=== PATIENT | female | born 1940 | race Caucasian/White ===

== ENCOUNTER 2020-04-09 12:38 | Observation (INO) | payer OTHER ==
--- OUTSIDE RECORDS SUMMARY | 2020-04-09 12:41 | XMS REPORT | Clinical Summary ---
:1940 Author Organization [facility] Address [address] [place] [address] Care Team Providers Name Role Phone Asked, Pcp Primary Care Provider Unavailable Allergies Not on File Medications Medication Sig Dispensed Refills Start Date End Date Status celecoxib (CeleBREX) 200 TAKE ONE CAPSULE 3 08/11/19 19 Active MG capsule BY MOUTH TWICE A DAY WITH MEALS triamterene-hydrochlorot Take 1 tablet by 3 06/05/19 19 Active hiazid (MAXZIDE-25) mouth 2 (two) 37.5-25 mg per tablet times a day. SYNTHROID 100 mcg tablet Take 100 mcg by 3 9 Active mouth daily. pramipexole (MIRAPEX) Take 0.25 mg by 3 07/28/2018 Active 0.25 MG tablet mouth 4 (four) times a day. mirtazapine (REMERON) 30 Take 30 mg by 3 07/31/2018 Active MG tablet mouth nightly. busPIRone (BUSPAR) 15 MG Take 15 mg by 2 08/01/2018 Active tablet mouth 2 (two) times a day. cyclobenzaprine Take 10 mg by 0 Active (FLEXERIL) 10 mg tablet mouth 3 (three) times a day as needed for muscle spasms. Active Problems Problem Noted Date Localized osteoarthritis of right knee 08/27/2018 Medical History Medical History Date Comments Arthritis Social History Tobacco Use Types Packs/Day Years Used Date Never Assessed Sex Assigned at Date Recorded Not on file Last Filed Vital Signs Not on file Plan of Treatment Health Maintenance Due Date Last Done Comments SHINGLES VACCINES (#1) 11/21/1989 65+ PNEUMOCOCCAL VACCINE (1 of 1 - PPSV23) 11/21/2004 INFLUENZA VACCINE 11/28/2019 Results Not on fileafter 04/09/2019 Insurance Payer Benefit Plan / Subscriber ID Effective Dates Phone Addre ss Type Group MEDICARE MEDICARE PART A [id number] 2004-Present [place], [place] Medicare AND B AETNA AETNA PPO OPEN [id number] 2000-Present PPO CHOICE Advance Directives For more information, please contact: [phone] Type Date Recorded 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
--- OUTSIDE RECORDS SUMMARY | 2020-04-09 12:41 | XMS REPORT | Clinical Summary ---
:1940 Author Organization [facility] Address [address] [place] [address] Care Team Providers Name Role Phone Ronal Fraire Primary Care Provider Unavailable Allergies Active Allergy Reactions Severity Noted Date Comments Adhesive Bandage 01/19/2019 Sulfa (Sulfonamide Antibiotics) 9 Medications Medication Sig Dispensed Refills Start Date End Date Status olmesartan TAKE 1 TABLET 0 06/27/2012 Acti ve (BENICAR) 20 MG BY MOUTH EVERY tablet DAY omeprazole 1 po qd 0 08/12/2006 Active (PRILOSEC OTC) 20 MG tablet mirtazapine Take 30 mg by 3 10/28/2018 Act brittani (REMERON) 30 MG mouth nightly tablet . pramipexole Take 0.25 mg 3 10/30/2018 Acti ve (MIRAPEX) 0.25 MG by mouth 4 tablet (four) times daily. triamterene-hydroC Take 1 tablet 3 12/04/2018 Active HLOROthiazide by mouth 2 (MAXZIDE-25) (two) times 37.5-25 mg per daily. tablet venlafaxine Take 75 mg by 3 11/09/2018 Act brittani (EFFEXOR-XR) 75 MG mouth daily. 24 hr capsule zolpidem (AMBIEN) TAKE 1 TABLET 0 02/04/2018 Active 10 mg tablet BY MOUTH AT BEDTIME WHEN NECESSARY INSOMNIA busPIRone (BUSPAR) Take 15 mg by 2 10/28/2018 Active 15 MG tablet mouth 2 (two) times daily. carisoprodol TK 1 T PO QID 1 10/17/2018 Ac tive (SOMA) 350 MG PRF SEVERE tablet MUSCLE SPASMS celecoxib Take 200 mg by 3 11/09/2018 Acti ve (CELEBREX) 200 MG mouth 2 (two) capsule times daily with breakfast and dinner. biotin 5 mg Cap Take 5 mg by 0 A ctive mouth daily . acetaminophen-code 1 tab q 4-6 0 11/05/2017 Active ine (TYLENOL #4) hrs prn pain. 300-60 mg per tablet levothyroxine TAKE 1 TABLET 0 06/27/2012 A ctive (SYNTHROID) 100 BY MOUTH EVERY MCG tablet DAY cetirizine Take 10 mg by 0 Activ e (ZYRTEC) 10 MG mouth daily. tablet ibuprofen/diphenhy Take by mouth 0 Active dramine cit (ADVIL as needed. PM ORAL) triamterene-hydroC TAKE 1 TABLET 0 06/05/2018 Discontinued HLOROthiazide BY MOUTH TWICE 0 ( Duplicate (MAXZIDE-25) A DAY Therapy ) 37.5-25 mg per tablet olmesartan Take 20 mg by 3 10/28/2018 Disc ontinued (BENICAR) 20 MG mouth daily. 0 tablet Active Problems Problem Noted Date SOB (shortness of breath) 10/26/2019 Encounters Date Type Specialty Care Team Description 10/26/2019 Surgery Roger Cade L CATH & CO COOPER Dugan MD ANGIOS 10/26/2019 Anesthesia Event Shalonda Bronson MD 10/26/2019 Hospital Encounter Roger Cade SOB ( shortness of MD Kailee breath) 10/26/2019 Travel 10/26/2019 Orders Only General Internal Medicine 10/22/2019 Clinical Support Cardiology Roger Cade Pre-op testing (Primary Dx); MD Kailee Preoperative testing Handy Sung RN 10/22/2019 Orders Only General Internal Medicine 10/07/2019 Orders Only Cardiology Trever Sifuentes NP Preoperativ e testing (Primary Dx) 10/07/2019 Orders Only Cardiology Roger Cade MD 09/15/2019 Hospital Encounter Cardiology Roger Cade Hyper tension, unspecified type; MD Kailee Systolic conges tive heart failure, unspecified HF chronicity (HCC) 09/07/2019 Orders Only Lab Jackson, Systolic conges tive NIKITA De Souza heart failure, unspecified HF chronicity (HCC ) (Primary Dx) 09/07/2019 Orders Only Oncology Ap Paz RN 07/08/2019 Orders Only Oncology Paz, Ap Liao RN unspecified typ e (Primary Dx) 07/08/2019 Documentation Oncology Ap Paz RN 06/22/2019 Hospital Encounter Radiology Jeremy Moore, Pulmon ahmet HTN (HCC); MD WATKINS (shortness of breath); Heart failure w ith preserved ejection fraction, unspecified HF chronicity (HCC) 06/11/2019 Outside Orders Central Scheduling Jeremy oMore, Pulm onary HTN (HCC) (Primary Dx); MD WATKINS (shortness of breath); Heart failure w ith preserved ejection fraction, unspecified HF chronicity (HCC) after 04/09/2019 Family History Medical History Relation Name Comments Stroke Father Heart disease Mother Cancer Sister breast, uterine, salivary gland Relation Name Status Comments Father Mother Sister Alive Sister Alive Social History Tobacco Use Types Packs/Day Years Used Date Never Smoker Smokeless Tobacco: Never Used Alcohol Use Drinks/Week oz/Week Comments Yes monthly twice - Rum Sex Assigned at Date Recorded Not on file Last Filed Vital Signs Vital Sign Reading Time Taken Comments Blood Pressure 148/72 10/26/2019 3:45 PM CDT Pulse 99 10/26/2019 3:45 PM CDT Temperature 36.8 C (98.3 F) 10/26/2019 5:43 AM CDT Respiratory Rate 16 10/26/2019 3:45 PM CDT Oxygen Saturation 97% 10/26/2019 9:00 AM CDT Inhaled Oxygen Concentration - - Weight 83 kg (183 lb) 10/26/2019 5:43 AM CDT Height 162.6 cm (5' 4") 10/26/2019 5:43 AM CDT Body Mass Index 31.41 10/26/2019 5:43 AM CDT Plan of Treatment Health Maintenance Due Date Last Done Comments PNEUMOCOCCAL 65+ YRS (1 of 1 - [id number]) 11/21/2004 MEDICARE ANNUAL WELLNESS (YEAR 2 or FIRST YEAR if no 10/28/2005 IPPE) INFLUENZA VACCINE (#1) 2019 Procedures Procedure Name Priority Date/Time Associated Diagnosis Comme nts CARDIAC CATH REPORT - 01/27/2020 10:20 AM SCAN CDT VASCULAR DIAGRAM -SCAN 01/27/2020 10:20 AM CDT TRANSFUSION SERVICE 10/27/2019 6:13 PM REPORT - SCAN CDT VASCULAR DIAGRAM -SCAN 10/27/2019 9:20 AM CDT CARDIAC CATH REPORT - 10/27/2019 9:20 AM SCAN CDT CARDIAC CATH REPORT - 10/27/2019 9:20 AM SCAN CDT PCI 10/26/2019 7:10 AM Abnormal findings on CDT imaging test PHT (pulmonary hypertension) (H CC) Shortness of breath Case Notes (1)CASE 6TOP L CATH & CORONARY ANGIOS 10/26/2019 7:10 AM CDT Abnor mal findings on imaging test PHT (pulmonary hypertension) (HCC) Shortness of breath Case Notes (1)CASE 6TOP ECG 12-LEAD Routine 10/26/2019 6:26 AM CDT Procedure Note - Interface, External Ris In - 10/26/2019 6:30 AM CDT Ventricular Rate 79 BPM Atrial Rate 79 BPM P-R Interval 162 ms QRS Duration 74 ms Q-T Interval 374 ms QTC Calculation(Bazett) 428 ms P Maxwell 59 degrees R Maxwell -7 degrees T Maxwell 35 degrees Normal sinus rhythm Low voltage QRS Borderline ECG When compared with ECG of 09:43, No significant change was fo und ECG 12-LEAD STAT 10/26/2019 6:26 AM Results for this CDT procedure are i n the results section. ABORH, MANUAL STAT 10/26/2019 6:19 AM Results for this CDT procedure are i n the results section. CBC W/PLT COUNT & STAT 10/26/2019 6:07 AM Res ults for this AUTO DIFFERENTIAL CDT procedure are in the results section. TYPE AND SCREEN, STAT 10/26/2019 6:07 AM Resu lts for this AUTOMATED CDT procedure are i n the results section. PROTHROMBIN TIME/INR STAT 10/26/2019 6:07 AM Results for this CDT procedure are i n the results section. CBC W/PLT COUNT & STAT 10/26/2019 6:07 AM Res ults for this AUTO DIFFERENTIAL CDT procedure are in the results section. BASIC METABOLIC PANEL STAT 10/26/2019 6:07 AM Results for this (7) CDT procedure are i n the results section. CBC W/PLT COUNT & Routine 10/22/2019 10:10 AM Pre-op testing R esults for this AUTO DIFFERENTIAL CDT procedure are in the results section. CBC W/PLT COUNT & Routine 10/22/2019 10:10 AM Pre-op testing R esults for this AUTO DIFFERENTIAL CDT procedure are in the results section. BASIC METABOLIC PANEL Routine 10/22/2019 10:10 AM Pre-op testi ng Results for this (7) CDT procedure are i n the results section. SARS-COV2/RT-PCR Routine 10/22/2019 9:58 AM Preoperative test ing Results for this ([facility] & REF LABS) CDT procedure are in the results section. ECG 12-LEAD Routine 10/22/2019 9:43 AM CDT Procedure Note - Interface, External Ris In - 10/22/2019 9:52 AM CDT Ventricular Rate 81 BPM Atrial Rate 81 BPM P-R Interval 156 ms QRS Duration 72 ms Q-T Interval 368 ms QTC Calculation(Bazett) 427 ms P Maxwell 59 degrees R Maxwell -26 degrees T Maxwell 53 degrees Normal sinus rhythm Low voltage QRS Cannot rule out Anterior inf arct , age undetermined Abnormal ECG When compared with ECG of 11:28, Minimal criteria for Anterio r infarct are now Present ECG 12-LEAD Routine 10/22/2019 9:43 AM Pre-op testing Result s for this CDT procedure are i n the results section. CBC W/PLT COUNT & AUTO Routine 09/15/2019 10:55 AM Systolic co ngestive Results for this DIFFERENTIAL CDT heart failure, procedure are in unspecified HF the results chronicity (HCC) section. B-TYPE NATRIURETIC Routine 09/15/2019 10:55 AM Systolic conges tive Results for this FACTOR (BNP) CDT heart failure, procedure are in unspecified HF the results chronicity (HCC) section. CBC W/PLT COUNT & AUTO Routine 09/15/2019 10:55 AM Systolic co ngestive Results for this DIFFERENTIAL CDT heart failure, procedure are in unspecified HF the results chronicity (HCC) section. COMPREHENSIVE Routine 09/15/2019 10:55 AM Systolic congestive Results for this METABOLIC PANEL CDT heart failure, procedure are in unspecified HF the results chronicity (HCC) section. 2D ECHO W/ DOPPLER Routine 09/15/2019 10:02 AM Hypertension, R esults for this (CW/PW/COLOR) CDT unspecified type procedure are in the results section. CTA HEART CORONARY Routine 06/22/2019 11:30 AM Pulmonary HTN (HCC) Results for this WITH CALCIUM SURFACE GRINDER SOB (shortness of procedure are in EVALUATION WITH FFR breath) the results Heart failure with section. preserved ejection fraction, unspecified HF chronicity (HCC) POCT-CREATININE Routine 06/22/2019 8:39 AM Resul ts for this SURFACE GRINDER procedure are i n the results section. after 04/09/2019 Results CARDIAC CATH REPORT - SCAN (01/27/2020 10:20 AM CDT) Narrative Performed At This result has an attachment that is no t available. VASCULAR DIAGRAM -SCAN (01/27/2020 10:20 AM CDT)Only the most recent of2 results within the time period is included. Narrative Performed At This result has an attachment that is no t available. TRANSFUSION SERVICE REPORT - SCAN (10/27/2019 6:13 PM CDT) Narrative Performed At This result has an attachment that is no t available. CARDIAC CATH REPORT - SCAN (10/27/2019 9:20 AM CDT) Narrative Performed At This result has an attachment that is no t available. CARDIAC CATH REPORT - SCAN (10/27/2019 9:20 AM CDT) Narrative Performed At This result has an attachment that is no t available. ECG 12 lead (10/26/2019 6:26 AM CDT)Only the most recent of2 resultswithin the time period is included. Specimen Narrative Performed At Ventricular Rate 79 BPM GE MUSE Atrial Rate 79 BPM P-R Interval 162 ms QRS Duration 74 ms Q-T Interval 374 ms QTC Calculation(Bazett) 428 ms P Maxwell 59 degrees R Maxwell -7 degrees T Maxwell 35 degrees Normal sinus rhythm Low voltage QRS Normal ECG When compared with ECG of 22-OCT-2019 09 :43, No significant change was found Confirmed by Heather DOMINGUEZ MICHAEL ([id number]) on 0 7:46:09 AM Procedure Note Interface, External Ris In - 10/26/2019 7:46 AM CDT Ventricular Rate 79 BPM Atrial Rate 79 BPM P-R Interval 162 ms QRS Duration 74 ms Q-T Interval 374 ms QTC Calculation(Bazett) 428 ms P Maxwell 59 degrees R Maxwell -7 degrees T Maxwell 35 degrees Normal sinus rhythm Low voltage QRS Normal ECG When compared with ECG of 22-OCT-2019 09 :43, No significant change was found Confirmed by Heather DOMINGUEZ MICHAEL ([id number]) on 10/26/2019 7:46:09 AM Performing Organization Address City/[facility]/Zipcode Phone Number ZOIE TERRY tari PERES (10/26/2019 6:19 AM CDT) Pathologist Sig nature ABO Grouping O [facility] DICAL [place] Rh Factor POS [facility] Specimen Blood Performing Organization Address City/[facility]/Zipcode Phone Number [facility] [address] [place] [phone] Type and screen, automated (10/26/2019 6:07 AM CDT) Pathologist Sig nature ABO/RH AUTOMATED O POSITIVE [facility] Ab Scrn NEGATIVE [facility] Specimen Blood Performing Organization Address [facility] Phone Number [address] [address] CBC with platelet count + automated diff (10/26/2019 6:07 AM CDT)Only the most recent of3 resultswithin the time period is included. Pathologist Sig nature WBC 4.7 3.5 - 10.5 [facility] K/L [facility] RBC 3.93 3.93 - 5.22 [facility] M/L [facility] Hemoglobin 11.9 11.2 - 15.7 [facility] GM/DL [facility] Hematocrit 37.1 34.1 - 44.9 % [facility] MCV 94.4 79.4 - 94.8 fL [facility] MCH 30.3 25.6 - 32.2 pg [facility] MCHC 32.1 (L) 32.2 - 35.5 [facility] GM/DL [facility] RDW 12.4 11.7 - 14.4 % [facility] Platelets 124 (L) 150 - 450 K/CU [facility] MPV 10.5 9.4 - 12.3 fL [facility] nRBC 0 0 - 0 /100 WBC [facility] % Neutros 34 % [facility] % Lymphs 52 % [facility] % Monos 10 % [facility] % Eos 4 % [facility] % Baso 1 % [facility] # Neutros 1.59 1.56 - 6.13 [facility] # Lymphs 2.44 1.18 - 3.74 [facility] # Monos 0.46 (H) 0.24 - 0.36 [facility] # Eos 0.18 0.04 - 0.36 [facility] # Baso 0.04 0.01 - 0.08 [facility] Immature 0 0 - 1 % [facility] Specimen Blood Performing Organization Address City/State/Zipcode Phone Number [facility] [address] [place] [address] CENTER Prothrombin time/INR (10/26/2019 6:07 AM CDT) Pathologist Sig nature Protime 12.9 11.9 - 14.2 seconds [facility] INR 1.0 <=5.9 [facility] Specimen Blood Narrative Performed At Effective 09/24/2018: PT Reference Range [facility] Change New: 11.9-14.2 Previous: 11.7-14.7 RECOMMENDED COUMADIN/WARFARIN INR THERAPY RANGES STANDARD DOSE: 2.0-3.0 Includes: PROPHYLAXIS for venous thrombosis, systemic embolization; TREATMENT for venous thrombosis and/or pulmonary embolus. HIGH RISK: Target INR is 2.5-3.5 for patients wiht mechanical heart valves. Within 24 hours, if on Coumadin Performing Organization Address [facility]/Zipcode Phone Number [facility] [address] [place] [address] [place] Basic metabolic panel (10/26/2019 6:07 AM CDT)Only the most recent of2 results within the time period is included. Sodium 142 136 - 145 meq/L [facility] Potassium 4.1 3.5 - 5.1 meq/L [facility] Chloride 107 98 - 107 meq/L [facility] CO2 26 22 - 29 meq/L [facility] BUN 33 (H) 7 - 21 mg/dL [facility] Creatinine 1.06 0.57 - 1.25 [facility] mg/dL [facility] Glucose 91 70 - 105 mg/dL [facility] Calcium 9.4 8.4 - 10.2 [facility] mg/dL [facility] EGFR 50Comment: ESTIMATED mL/min/1.73 sq [facility] GFR IS NOT m [facility] ACCURATE [place] CREATININE CLEARANCE IN PREDICTING GLOMERULAR FILTRATION RATE. ESTIMATED GFR IS NOT APPLICABLE FOR DIALYSIS PATIENTS. Specimen Blood Narrative Performed At Aircraft Hydraulic Equipment Mechanic ID - PIAYA L [facility] Performing Organization Address [facility] Phone Number [facility] [address] [place] [address] [place] SARS-CoV2/RT-PCR ([facility] & Ref Labs) (10/22/2019 9:58 AM CDT) SARS-COV2/RT-PCR Negative Not Detected, [facility] Negative NON-INTERFACED REFERENCE LABS SARS-COV-2 CPL [facility] PERFORMING LAB NON-INTERFACED REFERENCE LABS Specimen Other - Nasopharyngeal wall structure (b richard structure) Performing Organization Address [facility]/Zipcode Phone Number [facility] NON-INTERFACED REFERENCE LABS B-type Natriuretic Factor (BNP) (09/15/2019 10:55 AM CDT) Pathologist Sig nature BNP <10 0 - 100 pg/mL [facility] DICAL CENTER Specimen Blood Narrative Performed At Aircraft Hydraulic Equipment Mechanic ID - LONNIE Lobo [facility] Performing Organization Address City/State/Zipcode Phone Number [facility] [address] [place] [address] CENTER Comprehensive metabolic panel (09/15/2019 10:55 AM CDT) Protein, Total 7.6 6.0 - 8.3 [facility] gm/dL [facility] Albumin 4.4 3.5 - 5.0 [facility] g/dL [facility] Alkaline 72 40 - 150 U/L [facility] Phosphatase [facility] Total Bilirubin 0.5 0.2 - 1.2 [facility] mg/dL [facility] Sodium 136 136 - 145 [facility] meq/L [facility] Potassium 4.4 3.5 - 5.1 [facility] meq/L [facility] Chloride 99 98 - 107 [facility] meq/L [facility] CO2 31 (H) 22 - 29 meq/L [facility] BUN 32 (H) 7 - 21 mg/dL [facility] Creatinine 1.29 (H) 0.57 - 1.25 [facility] mg/dL [facility] Glucose 97 70 - 105 [facility] mg[facility]dL [facility] Calcium 9.8 8.4 - 10.2 [facility] mg/dL [facility] AST 29 5 - 34 U/L [facility] ALT 19 6 - 55 U/L [facility] EGFR 40Comment: mL/min/1.73 [facility] ESTIMATED GFR IS sq [facility] NOT [facility] CREATININE CLEARANCE IN PREDICTING GLOMERULAR FILTRATION RATE. ESTIMATED GFR IS NOT APPLICABLE FOR DIALYSIS PATIENTS. Specimen Blood Narrative Performed At Aircraft Hydraulic Equipment Mechanic ID - LONNIE Lobo [facility] Performing Organization Address City/State/Zipcode Phone Number [facility] [address] [place] [address] CENTER 2D Echo W/Doppler(CW/PW/Color) (09/15/2019 10:02 AM CDT) Pathologist Sig nature Ejection Fraction [facility] ECHO [facility] Specimen Narrative Performed At Transthoracic Echocardiography Report (T TE) [facility] ECHO [facility]ARTLAB [facility] Demographics Patient Name ASHA CASTILLO Date of Study 09/15/2019 ROMAN Gender Female Visit Number [id number] Race Room Number OP Number Date of 1940 Referring Alyssia Dugan Physician Age 78 year(s) It Quality Analyst Yenni rascon [facility] Interpreting Morro Manley MD Physician Fellow Phoenix Paez MD Procedure Type of Study TTE procedure:2DECHO W DOPPLER(CW/PW/COLOR) (Routine) Indications:Research. Clinical History HGB 11.9 HCT 35.0 % CHF, HTN, Scoliosis Height: 64 inches Weight: 78.02 kg (172 lbs) BSA: 1.83 m^2 BMI: 29.52 kg/m^2 HR: 89 bpm BP: 152/72 mmHg Summary 1. Normal left ventricular chamber size. Normal wall thickness. Normal overall left ventricular systolic function (55-60%). No apparent segmental wall motion abnormalities. Grade 1 diastolic dysfunction (impaired relaxation and low-normal LA pressure). LA size is normal (16-34 ml/m2) . 2. The right ventricular chamber size and systolic function are within normal limits. RA size is normal. Estimated peak systolic PA pressure is 25-30 mmHg. 3. No significant valvular abnormalitie s. Previous Study No prior exam available for comparison. Signature Findings Technical Quality: Technically adequate exam. Left Ventricle Normal left ventricular chamber size. Normal wall thickness. Normal overall left ventricular systolic function (55-60%). No apparent segmental wall motion abnormalities. Grade 1 diastolic dysfunc tion (impaired relaxation and low-normal LA pressure). Left Atrium LA size is normal (16-34 ml/m2) . Right Ventricle The right ventricular chamber size and systolic function are within normal limits. Right Atrium RA size is normal. Aortic Valve Normal AoV structure and function. Mitral Valve Normal MV structure and function. Tricuspid Valve A trace of tricuspid regurgitation. Estimated peak systolic PA pressure is 25-30 mmHg . Pulmonic Valve Normal PV structure appears normal by available view s. Aorta Aortic root size (SInus of Valsalva diameter) is norm al . Pericardium No significant pericardial effusion is visualized. IVC/SVC/PA/PV/Pleural The estimated RA pressure by IVC dynamics 5-10mmHg . Chambers/Structures Left Atrium LA Volume: 33.51 ml LA Area: 13.75 cm^2 LA Vol. Index: 18 ml/m^2 Left Ventricle LVIDd: 4.22 cm LV Septum Diastolic: 0.76 cm LV PW Diastolic: 0.77 cm LVOT Diameter: 1.9 cm Doppler/Quantitative Measurements Mitral Valve MV Peak E-Wave: 0.52 m/s MV Peak A-Wave: 0.87 m/s E/A Ratio: 0.6 Peak Gradient: 1.08 mmHg MV Fredy. Peak: Tissue Doppler E' Septal Velocity: 0.09 m/s E/E': 5.91 E' Lateral Velocity: 0.09 m/s Aortic Valve Peak Velocity: 1.06 m/s Mean Velocity: 0.64 m/s Peak Gradient: 4.53 mmHg Mean Gradient: 1.89 mmHg AV Area (continuity): 3.02 cm^2 AV VTI: 19.03 cm AV DVI: 1.07 LVOT Peak Velocity: 0.94 m/s Peak Gradient: 3.55 mmHg Mean Velocity: 0.55 m/s Mean Gradient: 1.48 mmHg LVOT Diameter: 1.9 cm LVOT VTI: 20.28 cm LVOT Area: 2.84 cm^2 LVOT SV:57.47 ml LVOT CO: 5.11 l/min LVOT CI: 2.79 l/min/m^2 Tricuspid Valve TR Velocity: 2.21 m/s TR Gradient: 19.45 mmHg Procedure Note Interface, External Ris In - 09/17/2019 11:19 AM CDT Transthoracic Echocardiography Report (TTE) Demographics Patient Name ASHA CASTILLO Date o f Study 09/15/2019 ABEL Gender Female Visit Number [id number] Race Room N umber OP Number Date of 1940 Referr stewart Dugan Physic marlene Age 78 year(s) Sonogr simaer Yenni Gary, RDCS Interp reting Morro Manley MD Physic marlene Fellow Phoenix Paez MD Procedure Type of Study TTE procedure:2DECHO W DOPPLE R(CW/PW/COLOR) (Routine) Indications:Research. Clinical History HGB 11.9 HCT 35.0 % CHF, HTN, Scoliosis Height: 64 inches Weight: 78.02 kg (172 lbs) BSA: 1.83 m^2 BMI: 29.52 kg/m^2 HR: 89 bpm BP: 152/72 mmHg Summary 1. Normal left ventricular chamber size . Normal wall thickness. Normal overall left ventricular systolic funct ion (55-60%). No apparent segmental wall motion abnormalities. Grade 1 burdick tolic dysfunction (impaired relaxation and low-normal LA pressure). LA size is normal (16-34 ml/m2) . 2. The right ventricular chamber size a nd systolic function are within normal limits. RA size is normal. Estim ated peak systolic PA pressure is 25-30 mmHg. 3. No significant valvular abnormalitie s. Previous Study No prior exam available for comparison. Signature Findings Technical Quality: Technically adequate exam. Left Ventricle Normal left vent ricular chamber size. Normal wall thickness. Gillian l overall left ventricular systolic function (55-60% ). No apparent segmental wall motion abnormali ties. Grade 1 diastolic dysfunction (impaired relaxa tion and low-normal LA pressure). Left Atrium LA size is gillian l (16-34 ml/m2) . Right Ventricle The right ventri cular chamber size and systolic function are wit hin normal limits. Right Atrium RA size is gillian l. Aortic Valve Normal AoV struc ture and function. Mitral Valve Normal MV struct ure and function. Tricuspid Valve A trace of tricu spid regurgitation. Estimated peak s ystolic PA pressure is 25-30 mmHg . Pulmonic Valve Normal PV struct ure appears normal by available views. Aorta Aortic root size (SInus of Valsalva diameter) is normal . Pericardium No significant p ericardial effusion is visualized. IVC/SVC/PA/PV/Pleural The estimated RA pressure by IVC dynamics 5-10mmHg . Chambers/Structures Left Atrium LA Volume: 33.51 ml LA Area: 13.75 cm^2 LA Vol. Index: 18 ml/m^2 Left Ventricle LVIDd: 4.22 cm LV Septum Diastolic: 0.76 cm LV PW Diastolic: 0.77 cm LVOT Diameter: 1.9 cm Doppler/Quantitative Measurements Mitral Valve MV Peak E-Wave: 0.52 m/s MV Peak A-Wave: 0.87 m/s E/A Ratio: 0.6 Peak Gradient: 1.08 mmHg MV Fredy. Peak: Tissue Doppler E' Septal Velocity: 0.09 m/s E/E': 5.91 E' Lateral Velocity: 0.09 m/s Aortic Valve Peak Velocity: 1.06 m/s Mean Velocity: 0.64 m/s Peak Gradient: 4.53 mmHg Mean Gradient: 1.89 mmHg AV Area (continuity): 3.02 cm^2 AV VTI: 19.03 cm AV DVI: 1.07 LVOT Peak Velocity: 0.94 m/s Pea k Gradient: 3.55 mmHg Mean Velocity: 0.55 m/s Tammy n Gradient: 1.48 mmHg LVOT Diameter: 1.9 cm LVO T VTI: 20.28 cm LVOT Area: 2.84 cm^2 LVO T SV:57.47 ml LVOT CO: 5.11 l/min LVO T CI: 2.79 l/min/m^2 Tricuspid Valve TR Velocity: 2.21 m/s TR Gradient: 19.45 mmHg Performing Organization Address City/State/Zipcode Phone Number [facility] CTA heart coronary with calcium evaluation with FFR (Heartflow) (06/22/2019 11:30 AM SURFACE GRINDER) Specimen Narrative Performed At Addendum Begins [employer] [facility] REPORT STATUS:A Addendum: I agree with the previously described no n vascular findings. End of addendum. Signed: Kan Fontana MD Report Verified Date/Time: 06/23/2019 12:22:20 Reading Location: [address] Radiolog y Reading Room Addendum Ends Addendum Begins REPORT STATUS:A ADDENDUM: Data was sent for CT analysis, ct-ffr, t o be performed by an independent third constitution party vendor. According to computer analysis, no obstr uctive lesion is identified. Please refer to the original conclusion for details. Signed: Saúl Layne MD Report Verified Date/Time: 06/23/2019 07:11:17 Addendum Ends FINAL REPORT CT coronary angiography, May 31 INDICATION: This is a very pleasant 78 - year old lady with with diagnosis of I 50.30, I 27.20 presents f or assessment. According to daughter, patient has alexa rtness of breath on exertion. TECHNIQUE: Spiral acquisition before and during intravenous contrast administration using a Brigido multidete ctor CT scanner. Multi-planar 3-D volume-rendering reconstruction was performed using an independent workstation interactively by the interpreting physician as well as the 3-D specialist for optima l visualisation of the coronary anatomy. Consecutive thin sli gretchen (< 1mm) were obtained. Arrival heart rate was suboptimal, of ap proximately 75 bpm. Medication administration: Oral metoprolol 100 mg; IV metoprolol 0 mg; S/L nitroglyercin 0.4 mg. Please refer to the contrast sheet scann ed in the Virool system for the amount and route of contrast given. This exam was performed according to our departmental dose-optimisation programme, which inclu emily automated exposure control, adjustment of the mA and/or kV according to patient size and/or use of iterative reconstruction t echnique. Dose modulation, iterative reconstruction, and/or weight based adjustment of the mA/kV was utilized to reduce the radiation dos e to as low as reasonably achievable. FINDINGS: VASCULAR: The thoracic aorta is normal in course, calibre, contour. No ectasia or aneurysmal dilation is identified. Th ere is no acute aortic pathology, specifically, there is no dis section, contained rupture, and intramural hematoma. The arch vess el branching pattern is normal. The left vertebral artery arises directly from the transverse arch, anterior to the takeoff of the lef t subclavian artery, consider a normal variant. The central pulmonary artery is normal i n calibre. The left ventricle is normal in size. Mi ld left atrial enlargement is identified. There is normal atrio-ventri cular and ventriculo-arterial concordance, and systemic and pulmonary venous return. There is no pericardial effusion identified. Calcium score and high-resolution, ECG s ynchronized computed tomography of the heart with attention t o the coronary arteries was performed. Coronary calcification was an alyzed using the Exhibition A system software. These are the results o f the calcium score evaluation (threshold = 130 HU): LM: = 0 LAD: = 400 LCX: = 0 RCA: = 163 Agatston: = 563 Reference ranges for calcium scores are provided as follows ([place] Clin Proc 1999; 74: 243-252): 0-10: minimal calcium 11-100: mild calcium 101-400 moderate calcium > 400 significant calcium The calcium score places patient between 75th to 90th percentile for age group, using the FAITH database. The coronary arteries have normal origin s. The left main coronary artery arises from the left sinus of Tori ariel and give rise to the left anterior descending of the left cir cumflex arteries in the normal fashion. The right coronary ar emil arises from the right sinus of Valsalva. The left main coronary artery is widely patent. The proximal LAD has calcification ident ified, eccentrically located. There is still 50% of the cross-sectiona l area that is patent indicating nonobstructive disease presen t. Remainder of the the proximal LAD is unremarkable. In the mid LAD, similar Consultation is seen, with only nonobstructive disease i dentified. Remainder of the mid LAD is unremarkable. The distal LAD becomes a small calibre vessel. Nonobstructive indication is darrick ntified in the first diagonal artery. The left circumflex artery is a small ca mario vessel. The right coronary artery is the dominan t vessel. This widely patent. There is minimal calcific lesion seen in the mid RCA that is nonobstructive. The PDA supply much of t he inferior septum and a prominent PL branches identified with no nobstructive calcification seen proximally. NON-VASCULAR: The visualised thyroid gland is unremark able. The chest wall and mediastinum appears u nremarkable. No significant adenopathy is identified in the mediasti num. In the lung windows, no endobronchial le ryder is seen, and no pleural effusion is identified. Some dependent c hanges is seen in the lung bases. Calcified granuloma is identified in the right lung at image 25. Overall, no suspicious pulmonary nod ule is identified. Limited images of the upper abdomen reve als no gross abnormality. No acute bony pathology is seen. Some de generative changes is noted. CONCLUSIONS: 1. Quantitative coronary artery calciu m Agatston score of 563. The calcium score places patient between 75th to 90th percentile for age group, using the FAITH database. 2. Normal coronary artery origins. The major epicardial coronary arteries i ncluding the left main coronary artery, the left anterior desce nding artery, left circumflex artery, and the right coronary artery ar e widely patent with no focal stenosis. There is calcification identified in the proximal and mid LAD, and also in the RCA territory, as reflected by the calcium score, however, only nonobstructive disease is identified at these level, with less than 50% reduction in diameter . The above findings indicates the presence of coronary ather osclerosis The data will be sent for CT analysis, b y an independent third constitution party vendor. Should the data be accepted for postprocessing, the result would be sent to [employer]Virool when availabl e. 3. No acute pulmonary pathology. Evidence of prior granulomatous disease. 4. Normal thoracic aorta. No ectasia or aneurysmal dilation is darrick ntified. 5. Other findings as described above. 6. The non-vascular findings will be r eviewed by the Tray Room Worker Radiologist and addendum will be added a s needed. Signed: Saúl Layne MD Report Verified Date/Time: 06/22/2019 12:11:30 Procedure Note Interface, External Ris In - 06/23/2019 12:24 PM SURFACE GRINDER Addendum Begins REPORT STATUS:A Addendum: I agree with the previously described no n vascular findings. End of addendum. Signed: Kan Fontana MD Report Verified Date/Time: 06/23/2019 1 2:22:20 Reading Location: [address] Reading Room Addendum Ends Addendum Begins REPORT STATUS:A ADDENDUM: Data was sent for CT analysis, ct-ffr, t o be performed by an independent third constitution party vendor. According to computer analysis, no obstr uctive lesion is identified. Please refer to the original conclusion for details. Signed: Saúl Layne MD Report Verified Date/Time: 06/23/2019 0 7:11:17 Addendum Ends FINAL REPORT CT coronary angiography, May 31 020 INDICATION: This is a very pleasant 78 - year old lady with with diagnosis of I 50.30, I 27.20 presents f or assessment. According to daughter, patient has shor tness of breath on exertion. TECHNIQUE: Spiral acquisition before and during intravenous contrast administration using a Brigido multidete ctor CT scanner. Multi-planar 3-D volume-rendering reconstruction was performed using an independent workstation interactively by the interpreting physician as well as the 3-D specialist for optima l visualisation of the coronary anatomy. Consecutive thin slic es (< 1mm) were obtained. Arrival heart rate was suboptimal, of ap proximately 75 bpm. Medication administration: Oral metoprolol 100 mg; IV metoprolol 0 mg; S/L nitroglyercin 0.4 mg. Please refer to the contrast sheet scann ed in the EPIC system for the amount and route of contrast given. This exam was performed according to our departmental dose-optimisation programme, which inclu emily automated exposure control, adjustment of the mA and/or kV according to patient size and/or use of iterative reconstruction t echnique. Dose modulation, iterative reconstruction, and/or weight based adjustment of the mA/kV was utilized to reduce the radiation dos e to as low as reasonably achievable. FINDINGS: VASCULAR: The thoracic aorta is normal in course, calibre, contour. No ectasia or aneurysmal dilation is identified. Th ere is no acute aortic pathology, specifically, there is no dis section, contained rupture, and intramural hematoma. The arch vesse l branching pattern is normal. The left vertebral artery arises directly from the transverse arch, anterior to the takeoff of the lef t subclavian artery, consider a normal variant. The central pulmonary artery is normal i n calibre. The left ventricle is normal in size. Mi ld left atrial enlargement is identified. There is normal atrio-ventri cular and ventriculo-arterial concordance, and systemic and pulmonary venous return. There is no pericardial effusion identified. Calcium score and high-resolution, ECG s ynchronized computed tomography of the heart with attention t o the coronary arteries was performed. Coronary calcification was an alyzed using the Exhibition A system software. These are the results o f the calcium score evaluation (threshold = 130 HU): LM: = 0 LAD: = 400 LCX: = 0 RCA: = 163 Agatston: = 563 Reference ranges for calcium scores are provided as follows ([place] Clin Proc 1999; 74: 243-252): 0-10: minimal calcium 11-100: mild calcium 101-400 moderate calcium > 400 significant calcium The calcium score places patient between 75th to 90th percentile for age group, using the FAITH database. The coronary arteries have normal origin s. The left main coronary artery arises from the left sinus of Tori ariel and give rise to the left anterior descending of the left cir cumflex arteries in the normal fashion. The right coronary art olman arises from the right sinus of Valsalva. The left main coronary artery is widely patent. The proximal LAD has calcification ident ified, eccentrically located. There is still 50% of the cross-sectiona l area that is patent indicating nonobstructive disease presen t. Remainder of the the proximal LAD is unremarkable. In the mid LAD, similar Consultation is seen, with only nonobstructive disease i dentified. Remainder of the mid LAD is unremarkable. The distal LAD becomes a small calibre vessel. Nonobstructive indication is darrick ntified in the first diagonal artery. The left circumflex artery is a small ca mario vessel. The right coronary artery is the dominan t vessel. This widely patent. There is minimal calcific lesion seen in the mid RCA that is nonobstructive. The PDA supply much of t he inferior septum and a prominent PL branches identified with no nobstructive calcification seen proximally. NON-VASCULAR: The visualised thyroid gland is unremark able. The chest wall and mediastinum appears u nremarkable. No significant adenopathy is identified in the mediasti num. In the lung windows, no endobronchial le ryder is seen, and no pleural effusion is identified. Some dependent c hanges is seen in the lung bases. Calcified granuloma is identified in the right lung at image 25. Overall, no suspicious pulmonary nod ule is identified. Limited images of the upper abdomen reve als no gross abnormality. No acute bony pathology is seen. Some de generative changes is noted. CONCLUSIONS: 1. Quantitative coronary artery calcium Agatston score of 563. The calcium score places patient between 75th to 90th percentile for age group, using the FAITH database. 2. Normal coronary artery origins. The major epicardial coronary arteries i ncluding the left main coronary artery, the left anterior desce nding artery, left circumflex artery, and the right coronary artery ar e widely patent with no focal stenosis. There is calcification identified in the proximal and mid LAD, and also in the RCA territory, as reflected by the calcium score, however, only nonobstructive disease is identified at these level, with less than 50% reduction in diameter . The above findings indicates the presence of coronary ather osclerosis The data will be sent for CT analysis, b y an independent third constitution party vendor. Should the data be accepted for postprocessing, the result would be sent to PACS/Virool when availabl e. 3. No acute pulmonary pathology. Evidence of prior granulomatous disease. 4. Normal thoracic aorta. No ectasia or aneurysmal dilation is darrick ntified. 5. Other findings as described above. 6. The non-vascular findings will be re viewed by the Tray Room Worker Radiologist and addendum will be added a s needed. Signed: Saúl Layne MD Report Verified Date/Time: 06/22/2019 1 2:11:30 Performing Organization Address City/State/Zipcode Phone Number GE RIS POC-Creatinine (06/22/2019 8:39 AM SURFACE GRINDER) POC-Creatinine 1.2Comment: : 0.6 - 1.3 mg/dL [facility] AT [address], [address]: Aircraft Hydraulic Equipment Mechanic/Technici an ID = [id number] for Jonny Estrada POC-EGFR 43 mL/min/1.73M2 [facility] Specimen Blood Performing Organization Address City[facility] Phone Number [address] [phone] CENTER after 04/09/2019 Insurance Payer Benefit Plan / Subscriber ID Effective Dates Phone Addre ss Type Group MEDICARE MEDICARE A B [id number] 2004-Present Medicare AETNA - [place]GD CARE AETNA INDEMNITY [id number] 2013-Present Comm NON CONTR Advance Directives For more information, please contact: [phone] Code Status Date Activated Date Inactivated Comments Full Code 10/26/2019 5:50 AM 10/26/2019 7:15 PM This code status was determined by: Patient
--- OUTSIDE RECORDS SUMMARY | 2020-04-09 12:43 | XMS REPORT | Continuity of Care Document ---
:1940 Author Organization [facility] t Address [address] [place] [address] Care Team Providers Name Role Phone Asked, Pcp Primary Care Physician Unavailable Alonzo Murry MD, Luke Attending Clinician Jasiel Fraire MD Attending Clinician Teresa MARINO PSmooth Attending Clinician Alyssia MARINO Attending Clinician Paramjit Cade MD Attending Clinician Audie MARINO LSmooth Attending Clinician PARAMJIT CADE Attending Clinician Unavailable Pineda SHELTON, S Attending Clinician Unavailable Bear JENNINGS Attending Clinician Paz RN Attending Clinician Unavailable Georgiana Jarrett MD Attending Clinician Unavailable Georgiana JARRETT Attending Clinician Unavailable PARAMJIT CADE Admitting Clinician Unavailable Payers Payer Name Policy Type Policy Effective Date Expiration Date Sour ce Number MEDICAREMEDICARE A [id number] 2004 ROBERT Pan [id number] 2004-P 00:00:00 [facility] CAREAETNA [id number] 2013 ROBERT Bobo INDEMNITY NON 00:00:00 - Medical [id number] 2013 Ce nter -PresentComm Problems Condition Condition Condition Status Onset Resolution Last Treating Co mments Source Name Details Category Date Date Treatment Clinician Date SOB SOB Disease Active [facility] (shortness (shortness 6 Carolyn kes - of breath) of breath) 00:00: Me dical 00 [place] Localized 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 itis of 00:00: st right knee right knee 00 Allergies, Adverse Reactions, Alerts Allergy Allergy Status Severity Reaction(s) Onset Inactive Treating Comm ents Source Name Type Date Date Clinician Adhesive Propensi Active [facility] St Bandage ty to 01-19 [facility] - adverse 00:00: Medical reaction 00 Center s Sulfa Propensi Active [facility] (Sulfona ty to 01-19 [facility] - mide adverse 00:00: Medical Antibiot reaction 00 Center ics) s Family History Family Member Diagnosis Comments Start Date Stop Date Source Natural father Stroke [facility] Natural mother Heart disease [facility] Natural sister Cancer [facility] Social History Social Habit Start Date Stop Date Quantity Comments Source Sex Assigned At [facility] Tobacco use and 2019-10-27 2019-10-27 Never used [facility] - exposure 00:00:00 00:00:00 [facility] Alcohol intake 2019-10-27 2019-10-27 Current drinker [facility] Ian watters kes - 00:00:00 00:00:00 of [facility] ([facility] Alcohol Comment 2019-10-22 2019-10-22 monthly twice - [facility] - 00:00:00 00:00:00 [facility] Smoking Status Start Date Stop Date Source Never smoker [facility] edical [place] Medications Ordered Filled Start Stop Current Ordering Indication Dosage Frequency Signature Comments Components Source Medication Medication Date Date Medication? Clinician (SIG) Name Name biotin 5 mg Yes 5mg QD Take [address] Cap 6-29 by mouth [facility] - 17:15: daily . Medical [address] [place] [address] cetirizine Yes 10mg QD Take [address] (ZYRTEC) 10 6-29 by mouth Luke s - MG tablet 17:15: daily. Medica l [address] [place] [address] ibuprofen/d Yes Take by [facility] iphenhydram 6-29 mouth as Luke s - ine cit 17:15: needed. Medical (ADVIL PM Center ORAL) triamterene Yes 1{tbl} Q.5D Take [address] -hydroCHLOR 8-08 tablet by Mylene es - Othiazide 00:00: mouth 2 Medic al (MAXZIDE-25 00 (two) Center ) 37.5-25 times mg per daily. tablet venlafaxine Yes 75mg QD Take [address] [facility] (EFFEXOR-XR 7-14 by mouth Luke s - ) 75 MG 24 00:00: daily. Medic al hr capsule 00 [place] celecoxib Yes 200mg Take [address] [facility] [address] (CELEBREX) 7-14 mg by [facility] - 200 MG 00:00: mouth 2 Medical capsule 00 (two) Center times daily with breakfast and dinner. pramipexole Yes .25mg Q.25D Take 0.[address] [facility] [facility] (MIRAPEX) 7-04 mg by [facility] - 0.25 MG 00:00: mouth 4 Medical tablet 00 (four) Center times daily. mirtazapine Yes 30mg QD Take [address] [facility] (REMERON) 7-02 by mouth [facility] - 30 MG 00:00: nightly . Medical tablet 00 [place] busPIRone Yes 15mg Q.5D Take [address] (BUSPAR) 15 7-02 by mouth 2 Carolyn kes - MG tablet 00:00: (two) Medical 00 times Center daily. olmesartan 2020- No 20mg QD Take [address] [facility] (BENICAR) 7-02 06-25 by mouth [facility] - 20 MG 00:00: 00:00 daily. Medical tablet 00 :00 [place] carisoprodo Yes TK [address] l (SOMA) 6-21 QID PRF Lukes - 350 MG 00:00: SEVERE Medical tablet 00 MUSCLE Center SPASMS cyclobenzap Yes 10mg Q.[id number] Take 10 mg Roth rine - [id number] by mouth 3 Met hodi (FLEXERIL) 14:54: 3D (three) st 10 mg 08 times a tablet day as needed for muscle spasms. celecoxib Yes TAKE ONE [place] (CeleBREX) 4-14 CAPSULE BY Met hodi 200 MG 00:00: MOUTH st capsule 00 TWICE A DAY WITH MEALS busPIRone Yes 15mg Q.5D Take 15 mg [place] (BUSPAR) 15 4-05 by mouth 2 Me thodi MG tablet 00:00: (two) st 00 times a day. mirtazapine Yes 30mg QD Take 30 mg Roth (REMERON) 4-04 by mouth Method i 30 MG 00:00: nightly. st tablet 00 pramipexole Yes .25mg Q.25D Take 0.25 [facility] (MIRAPEX) 4-01 mg by Methodi 0.25 MG 00:00: mouth 4 st tablet 00 (four) times a day. SYNTHROID Yes 100ug QD Take 100 Jimy ston 100 mcg 3-29 mcg by Methodi tablet 00:00: mouth st 00 daily. triamterene Yes 1{tbl} Q.5D Take 1 [place] -hydrochlor 2-07 tablet by Met hodfelicita othiazid 00:00: mouth 2 st (MAXZIDE-25 00 (two) ) 37.5-25 times a mg per day. tablet triamterene 2020- No TAKE [address] -hydroCHLOR 2-07 06-25 TABLET BY Carolyn kes - Othiazide 00:00: 00:00 MOUTH Medica l (MAXZIDE-25 00 :00 TWICE A Cente r ) 37.5-25 DAY mg per tablet zolpidem 2017-04 Yes TAKE [address] [facility] (AMBIEN) 10 0-09 TABLET BY Mylene es - mg tablet 00:00: MOUTH AT [facility] ana 00 BEDTIME Center WHEN NECESSARY INSOMNIA acetaminoph Yes [address] en-codeine 7-10 4-6 hrs Lukes - (TYLENOL 00:00: prn pain. Medi ana #4) 300-60 00 Center mg per tablet olmesartan Yes TAKE 1 [facility] (BENICAR) 3-01 TABLET BY [facility]ukes - 20 MG 00:00: MOUTH Medical tablet 00 EVERY DAY Center levothyroxi Yes TAKE [address] [facility] ne 3-01 TABLET BY [facility]ukes - (SYNTHROID) 00:00: MOUTH Medic al 100 MCG 00 EVERY DAY Center tablet omeprazole Yes [address] [facility] (PRILOSEC 4-16 [facility] - OTC) 20 MG 00:00: Medical tablet Center Vital Signs Vital Name Observation Time Observation Value Comments Source Systolic blood 2019-10-26 15:45:00 148 mm[Hg] [facility] Diastolic blood 2019-10-26 15:45:00 72 mm[Hg] [facility] S [facility] Heart rate 2019-10-26 15:45:00 99 /min [facility] Respiratory rate 2019-10-26 15:45:00 16 /min [facility] Oxygen saturation in 2019-10-26 09:00:00 97 /min [facility] Arterial blood by Medical Ce nter Pulse oximetry Body temperature 2019-10-26 05:43:00 36.83 Noemí [facility] Body height 2019-10-26 05:43:00 162.6 cm [facility] Body weight 2019-10-26 05:43:00 83.008 kg [facility] BMI 2019-10-26 05:43:00 31.41 kg/m2 [facility] Procedures Procedure Date / Time Performed Performing Clinician Ramana e CARDIAC CATH REPORT - 2020-01-27 10:20:23 Provider, [facility] VASCULAR DIAGRAM -SCAN 2020-01-27 10:20:21 Provider, [facility] TRANSFUSION SERVICE 2019-10-27 18:13:41 Provider, [facility] REPORT - [facility] VASCULAR DIAGRAM -SCAN 2019-10-27 09:20:08 Provider, Default [facility] CARDIAC CATH REPORT - 2019-10-27 09:20:05 Provider, Default [facility] CARDIAC CATH REPORT - 2019-10-27 09:20:04 Provider, [facility] L CATH & CORONARY ANGIOS 2019-10-26 07:10:00 Roger Cade I [facility] PCI 2019-10-26 07:10:00 Roger Cade [facility] ECG 12-LEAD 2019-10-26 06:26:02 Unknown, Hl7 Doctor [facility] ABORH, MANUAL 2019-10-26 06:19:00 Delores Cavanaugh [facility] BASIC METABOLIC PANEL (7) 2019-10-26 06:07:00 Bear [facility] I [facility] PROTHROMBIN TIME/INR 2019-10-26 06:07:00 [facility] TYPE AND SCREEN, 2019-10-26 06:07:00 [facility] - AUTOMATED [facility] CBC W/PLT COUNT & AUTO 2019-10-26 06:07:00 Bear [facility] S t [facility] DIFFERENTIAL [facility] BASIC METABOLIC PANEL (7) 2019-10-22 10:10:[address] [facility] CBC W/PLT COUNT & AUTO 2019-10-22 10:10:[address] kes - DIFFERENTIAL [facility] SARS-COV2/RT-PCR ([facility] & 2019-10-22 09:58:00 [facility] ECG 12-LEAD 2019-10-22 09:43:58 Unknown, Hl7 Doctor [facility] COMPREHENSIVE METABOLIC 2019-09-15 10:55:[address] [facility]es - PANEL [facility] B-TYPE NATRIURETIC FACTOR 2019-09-15 10:55:[address] [facility] - (BNP) [facility] CBC W/PLT COUNT & AUTO 2019-09-15 10:55:00 Roger Cade [facility] St kes - DIFFERENTIAL [facility] 2D ECHO W/ DOPPLER 2019-09-15 10:02:00 Roger Cade [facility] L [facility] - (CW/PW/COLOR) [facility] CTA HEART CORONARY WITH 2019-06-22 11:30:[address] [facility] - CALCIUM EVALUATION WITH [facility] FFR POCT-CREATININE 2019-06-22 08:39:00 Jeremy Jarrett [facility] Plan of Care Planned Activity Planned Date Details Comments Source Future Scheduled 2019-12-29 INFLUENZA VACCINE (#1) [facility] - Test 00:00:00 [code = INFLUENZA Medical Ce nter VACCINE (#1)] Future Scheduled 2019-11-28 INFLUENZA VACCINE [place] [facility] 00:00:00 [code = INFLUENZA VACCINE] Future Scheduled 2005-10-[address] [facility] - Test 00:00:00 WELLNESS (YEAR 2 or Medical Center FIRST YEAR if no IPPE) [code = MEDICARE ANNUAL WELLNESS (YEAR 2 or FIRST YEAR if no IPPE)] Future Scheduled 2004-11-21 65+ PNEUMOCOCCAL [facility] Test 00:00:00 VACCINE (1 of 1 - PPSV23) [code = 65+ PNEUMOCOCCAL VACCINE (1 of 1 - PPSV23)] Future Scheduled 2004-11-21 PNEUMOCOCCAL 65+ [facility] - Test 00:00:00 (1 of 1 - Medical Center [id number] PCV13) [code = PNEUMOCOCCAL 65+ YRS (1 of 1 - [id number]_Ggsrqfo PCV13)] Future Scheduled 1989-11-21 SHINGLES VACCINES (#1) [facility] Test 00:00:00 [code = SHINGLES VACCINES (#1)] Encounters Start End Encounter Admission Attending Care Care Encounter Source Date/Time Date/Time Type Type Clinicians Facility Department ID 2020-03-17 2020-03-17 Office DMITRY Rosado 1.2.840.114 [id number] 10:15:37 10:45:37 Visit Casey Butler AMBULATOR 350.1.13.21 Y 0.2.7.2.686 [id number] 2020-03-03 2020-03-03 Office DMITRY Fraire 1.2.840.114 [id number] 07:41:22 16:37:01 Visit John Weathers AMBULATOR 350.1.13.21 Y 0.2.7.2.686 [id number] 2020-02-18 2020-02-18 Office Jeremy Jarrett 1.2.840.114 [id number] 10:14:58 14:46:59 Visit Georgiana AMBULATOR 350.1.13.21 Y 0.2.7.2.686 [id number] 2020-02-02 2020-02-02 Office DMITRY Cade 1.2.840.114 [id number] 13:03:55 13:23:55 Visit Roger AMBULATOR 350.1.13.21 Y 0.2.7.2.686 [id number] 2019-07-07 2019-07-07 Office DMITRY Cade 1.2.840.114 [id number] 09:45:03 10:05:03 Visit Roger AMBULATOR 350.1.13.21 Y 0.2.7.2.686 [id number] 2019-06-02 2019-06-02 Office DMITRY Cade 1.2.840.114 [id number] 13:19:34 13:39:34 Visit Roger AMBULATOR 350.1.13.21 Y 0.2.7.2.686 [id number] 2019-06-01 2019-06-01 Office DMITRY Rosado 1.2.840.114 [id number] 14:43:10 14:58:10 Visit Casey Butler AMBULATOR 350.1.13.21 Y 0.2.7.2.686 [id number] 2019-02-23 2019-02-23 Office Jeremy Jarrett 1.2.840.114 [id number] 13:38:56 16:16:51 Visit P. AMBULATOR 350.1.13.21 Y 0.2.7.2.686 [id number] 2019-01-30 2019-01-30 Office DMITRY Cade 1.2.840.114 [id number] 07:58:42 08:18:42 Visit Roger AMBULATOR 350.1.13.21 Y 0.2.7.2.686 [id number] 2018-12-12 2018-12-12 Office DMITRY Cade 1.2.840.114 [id number] 10:45:15 11:25:15 Visit Roger AMBULATOR 350.1.13.21 Y 0.2.7.2.686 [id number] 2018-12-02 2018-12-02 Office DMITRY Fraire 1.2.840.114 [id number] 13:30:00 14:00:00 Visit John Weathers AMBULATOR 350.1.13.21 Y 0.2.7.2.686 [id number] 2018-12-02 2018-12-02 Office DMITRY Fraire 1.2.840.114 [id number] 09:34:04 13:55:47 Visit John Weathers AMBULATOR 350.1.13.21 Y 0.2.7.2.686 [id number] Results Test Description Test Time Test Comments Results Result Sourc e Comments ECG 12 lead 2019-10-26 Interface, External [facility] 07:46:12 Ris In - 10/26/2019 - Med ical 7:46 AM Center CDTVentricular Rate 79 BPMAtrial Rate 79 BPMP-R Interval 162 msQRS Duration 74 msQ-T Interval 374 msQTC Calculation(Bazett) 428 msP [place] 59 degreesR [place] -7 degreesT [place] 35 degreesNormal sinus rhythmLow voltage QRSNormal ECGWhen compared with ECG of 22-OCT-2019 09:43,No significant change was foundConfirmed by Heather DOMINGUEZ MICHAEL ([id number]) on 10/26/2019 7:46:09 AM ABORH, manual 2019-10-26 07:14:00 Test Item Value Reference Range Interpretation Comme nts ABO Grouping (test code = 2588) O Rh Factor (test code = 2589) POS [facility] and [facility], [id number] 06:56:00 Test Item Value Reference Range Interpretation Comments ABO/RH AUTOMATED (BEAKER) (test O POSITIVE code = 2260) Ab Scrn (test code = 890-4) NEGATIVE [facility] CenterBasic metabolic [id number] 06:33:00 Test Item Value Reference Range Interpretation Comments Sodium (test code = 142 meq/L 961-622 6273-2) Potassium (test code = 4.1 meq/L 3.5-5.1 2823-3) Chloride (test code = 107 meq/L 98-107 2075-0) CO2 (test code = 26 meq/L 2027-9) BUN (test code = 33 mg/dL 7-21 H 3094-0) Creatinine (test code 1.06 mg/dL 0.57-1.25 = 2160-0) Glucose (test code = 91 mg/dL 70-105 2345-7) Calcium (test code = 9.4 mg/dL 8.4-10.2 47432-1) EGFR (test code = 50 mL/min/1.73 [place] [address]-0) NOT ACCURATE CREATININE CLEARANCE IN PREDICTING GLOMERULAR FILTRATION RATE . ESTIMATED GFR I S NOT APPLICABLE FOR DIALYSIS PATIENTS. MONIE (test code = MONIE) Registered Massage Therapist ID - NEALEMETERIO Celeste Lab Interpretation Abnormal (test code = 58803-3) [facility] Center[facility]I METABOLIC [id number] 06:33:00 Test Item Value Reference Range Interpretation Comments SODIUM (BEAKER) 142 meq/L 136-145 (test code = 381) POTASSIUM (BEAKER) 4.1 meq/L 3.5-5.1 (test code = 379) CHLORIDE (BEAKER) 107 meq/L 98-107 (test code = 382) CO2 (BEAKER) (test 26 meq/L 22-29 code = 355) BLOOD UREA NITROGEN 33 mg/dL 7-21 H (BEAKER) (test code = 354) CREATININE (BEAKER) 1.06 mg/dL 0.57-1.25 (test code = 358) GLUCOSE RANDOM 91 mg/dL 70-105 (BEAKER) (test code = 652) CALCIUM (BEAKER) 9.4 mg/dL 8.4-10.2 (test code = 697) EGFR (BEAKER) (test 50 mL/min/1.73 ESTIMA CHERYLE GFR IS code = 1092) sq m NOT ACCURATE CREATININE CLEARANCE IN PREDICTING GLOMERULAR FILTRATION RATE . ESTIMATED GFR I S NOT APPLICABLE FOR DIALYSIS PATIEN TS. Registered Massage Therapist ID - PIAYA LProthrombin time/[id number] 06:31:00 Test Item Value Reference Range Interpretation Comments Protime (test code = 12.9 11.9- 14.2 5902-2) seconds INR (test code = 1.0 <=5.9 6301-6) MONIE (test code = MONIE) Effective 09/24/2018: PT Reference Range ChangeNew: 11.9-14.2 Previous: 11.7-14.7 RECOMMENDED COUMADIN/WARFARIN INR THERAPY RANGESSTANDARD DOSE: 2.0-3.0 Includes: PROPHYLAXIS for venous thrombosis, systemic embolization; TREATMENT for venous thrombosis and/or pulmonary embolus.HIGH RISK: Target INR is 2.5-3.5 for patients wiht mechanical heart valves. Within 24 hours, if on Coumadin Lab Interpretation Normal (test code = 54938-0) [facility] CenterPROTHROMBIN TIME/[id number] 06:31:00 Test Item Value Reference Range Interpretation Comments PROTIME (BEAKER) (test code = 12.9 seconds 11.9-14.2 759) INR (BEAKER) (test code = 370) 1.0 <=5.9 Effective 09/24/2018: PT Reference Range ChangeNew: 11.9-14.2 Previous: 11.7- 14.7RECOMMENDED COUMADIN/WARFARIN INR THERAPY RANGESSTANDARD DOSE: 2.0-3.0 Includes: PROPHYLAXIS for venous thrombosis, systemic embolization; TREATMENT for venous thrombosis and/or pulmonary embolus.HIGH RISK: Target INR is2.5-3.5 for patients wiht mechanical heart valves.Within 24 hours, if on CoumadinCBC with platelet count + automated [id number] 06:23:00 Test Item Value Reference Range Interpretation Comments WBC (test code = 6690-2) 4.7 3.5- 10.5 K/L RBC (test code = 789-8) 3.93 3.93- 5.22 M/L MCHC (test code = 786-4) 32.1 32.2- 35.5 GM/DL L Hematocrit (test code = 4544-3) 37.1 % 34.1-44.9 MCV (test code = 787-2) 94.4 fL 79.4-94.8 MCH (test code = 785-6) 30.3 pg 25.6-32.2 RDW (test code = 788-0) 12.4 % 11.7-14.4 Platelets (test code = 777-3) 124 150- 450 K/CU MM L MPV (test code = 12430-6) 10.5 fL 9.4-12.3 nRBC (test code = 413) 0 0- 0 /100 WBC % Neutros (test code = 429) 34 % % Lymphs (test code = 430) 52 % % Monos (test code = 431) 10 % % Eos (test code = 432) 4 % % Baso (test code = 437) 1 % # Neutros (test code = 670) 1.59 1.56- 6.13 K/L # Lymphs (test code = 414) 2.44 1.18- 3.74 K/L # Monos (test code = 415) 0.46 0.24- 0.36 K/L H # Eos (test code = 416) 0.18 0.04- 0.36 K/L # Baso (test code = 417) 0.04 0.01- 0.08 K/L Immature Granulocytes-Relative 0 % 0-1 (test code = 2801) Lab Interpretation (test code = Abnormal 37846-8) [facility] W/PLT COUNT & AUTO [id number] 06:23:00 Test Item Value Reference Range Interpretation Comments WHITE BLOOD CELL COUNT (BEAKER) 4.7 K/ L 3.5-10.5 (test code = 775) RED BLOOD CELL COUNT (BEAKER) 3.93 M/ L 3.93-5.22 (test code = 761) HEMOGLOBIN (BEAKER) (test code = 11.9 GM/DL 11.2-15.7 410) HEMATOCRIT (BEAKER) (test code = 37.1 % 34.1-44.9 411) MEAN CORPUSCULAR VOLUME (BEAKER) 94.4 fL 79.4-94.8 (test code = 753) MEAN CORPUSCULAR HEMOGLOBIN 30.3 pg 25.6-32.2 (BEAKER) (test code = 751) MEAN CORPUSCULAR HEMOGLOBIN CONC 32.1 GM/DL 32.2-35.5 L (BEAKER) (test code = 752) RED CELL DISTRIBUTION WIDTH 12.4 % 11.7-14.4 (BEAKER) (test code = 412) PLATELET COUNT (BEAKER) (test 124 K/CU MM 150-450 L code = 756) MEAN PLATELET VOLUME (BEAKER) 10.5 fL 9.4-12.3 (test code = 754) NUCLEATED RED BLOOD CELLS 0 /100 WBC 0-0 (BEAKER) (test code = 413) NEUTROPHILS RELATIVE PERCENT 34 % (BEAKER) (test code = 429) LYMPHOCYTES RELATIVE PERCENT 52 % (BEAKER) (test code = 430) MONOCYTES RELATIVE PERCENT 10 % (BEAKER) (test code = 431) EOSINOPHILS RELATIVE PERCENT 4 % (BEAKER) (test code = 432) BASOPHILS RELATIVE PERCENT 1 % (BEAKER) (test code = 437) NEUTROPHILS ABSOLUTE COUNT 1.59 K/ L 1.56-6.13 (BEAKER) (test code = 670) LYMPHOCYTES ABSOLUTE COUNT 2.44 K/ L 1.18-3.74 (BEAKER) (test code = 414) MONOCYTES ABSOLUTE COUNT (BEAKER) 0.46 K/ L 0.24-0.36 H (test code = 415) EOSINOPHILS ABSOLUTE COUNT 0.18 K/ L 0.04-0.36 (BEAKER) (test code = 416) BASOPHILS ABSOLUTE COUNT (BEAKER) 0.04 K/ L 0.01-0.08 (test code = 417) IMMATURE GRANULOCYTES-RELATIVE 0 % 0-1 PERCENT (BEAKER) (test code = 2801) SARS-CoV2/RT-PCR ([facility] & Ref Labs)2019-10-25 10:59:00 Test Item Value Reference Range Interpretation Comments SARS-COV2/RT-PCR (test code = Negative Not Detected, Negative 23025-3) SARS-COV-2 PERFORMING LAB CPL (test code = 02317-4) [facility])2019-10-25 10:59:00 Test Item Value Reference Range Interpretation Comments SARS-COV2/RT-PCR (test code = Negative Not Detected, Negative 0922738) SARS-COV-2 PERFORMING LAB CPL (test code = 8784067) BASIC METABOLIC [id number] 10:52:00 Test Item Value Reference Range Interpretation Comments SODIUM (BEAKER) 139 meq/L 136-145 (test code = 381) POTASSIUM (BEAKER) 4.8 meq/L 3.5-5.1 (test code = 379) CHLORIDE (BEAKER) 104 meq/L 98-107 (test code = 382) CO2 (BEAKER) (test 30 meq/L 22-29 H code = 355) BLOOD UREA NITROGEN 27 mg/dL 7-21 H (BEAKER) (test code = 354) CREATININE (BEAKER) 1.26 mg/dL 0.57-1.25 H (test code = 358) GLUCOSE RANDOM 95 mg/dL 70-105 (BEAKER) (test code = 652) CALCIUM (BEAKER) 9.6 mg/dL 8.4-10.2 (test code = 697) EGFR (BEAKER) (test 41 mL/min/1.73 ESTIMA CHERYLE GFR IS code = 1092) sq m NOT ACCURATE CREATININE CLEARANCE IN PREDICTING GLOMERULAR FILTRATION RATE . ESTIMATED GFR I S NOT APPLICABLE FOR DIALYSIS PATIEN TS. Registered Massage Therapist ID - APR CCBC W/PLT COUNT & AUTO [id number] 10:23:00 Test Item Value Reference Range Interpretation Comments WHITE BLOOD CELL COUNT (BEAKER) 4.6 K/ L 3.5-10.5 (test code = 775) RED BLOOD CELL COUNT (BEAKER) 4.04 M/ L 3.93-5.22 (test code = 761) HEMOGLOBIN (BEAKER) (test code = 12.5 GM/DL 11.2-15.7 410) HEMATOCRIT (BEAKER) (test code = 38.6 % 34.1-44.9 411) MEAN CORPUSCULAR VOLUME (BEAKER) 95.5 fL 79.4-94.8 H (test code = 753) MEAN CORPUSCULAR HEMOGLOBIN 30.9 pg 25.6-32.2 (BEAKER) (test code = 751) MEAN CORPUSCULAR HEMOGLOBIN CONC 32.4 GM/DL 32.2-35.5 (BEAKER) (test code = 752) RED CELL DISTRIBUTION WIDTH 12.6 % 11.7-14.4 (BEAKER) (test code = 412) PLATELET COUNT (BEAKER) (test 124 K/CU MM 150-450 L code = 756) MEAN PLATELET VOLUME (BEAKER) 10.8 fL 9.4-12.3 (test code = 754) NUCLEATED RED BLOOD CELLS 0 /100 WBC 0-0 (BEAKER) (test code = 413) NEUTROPHILS RELATIVE PERCENT 44 % (BEAKER) (test code = 429) LYMPHOCYTES RELATIVE PERCENT 43 % (BEAKER) (test code = 430) MONOCYTES RELATIVE PERCENT 8 % (BEAKER) (test code = 431) EOSINOPHILS RELATIVE PERCENT 4 % (BEAKER) (test code = 432) BASOPHILS RELATIVE PERCENT 1 % (BEAKER) (test code = 437) NEUTROPHILS ABSOLUTE COUNT 2.00 K/ L 1.56-6.13 (BEAKER) (test code = 670) LYMPHOCYTES ABSOLUTE COUNT 1.97 K/ L 1.18-3.74 (BEAKER) (test code = 414) MONOCYTES ABSOLUTE COUNT (BEAKER) 0.38 K/ L 0.24-0.36 H (test code = 415) EOSINOPHILS ABSOLUTE COUNT 0.16 K/ L 0.04-0.36 (BEAKER) (test code = 416) BASOPHILS ABSOLUTE COUNT (BEAKER) 0.05 K/ L 0.01-0.08 (test code = 417) IMMATURE GRANULOCYTES-RELATIVE 0 % 0-1 PERCENT (BEAKER) (test code = 2801) 2D Echo W/Doppler(CW/PW/Color)2019-09-17 11:19:22Ejection FractionSLEH ECHO HEARTLAB MKCKESSON CPACSInterface, External Ris In - 09/17/2019 11:19 AM C DTTransthoracic Echocardiography Report (TTE) Demographics Patient Name ASHA BELTRAN Date ofStudy 09/15/2019 ROMAN Gender Female Visit Number [id number] Race Room Number OP Number Date of 1940 Referring Alyssia Dugan Physician Age 78 year(s) 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 [...] is 25-30 mmHg. 3. No significant valvular abnormalities. Previous Study No prior exam available for comparison. Signature 11:19 AM Findings Technical Quality: Technically adequate exam. Left Ventricle Normal left ventricular chamber size. Normal wall thickness. Normal overall left ventricular systolic function (55-60%). No apparent segmental wall motion abnormalities. Grade 1 diastolic dysfunction (impaired relaxation and low-normal LA pressure). Left Atrium LA size is normal (16-34 ml/m2) . Right Ventricle The right ventricular chamber size and systolic function are within normal limits. Right AtriumRA size is normal. Aortic Valve Normal AoV structure and function. Mitral Valve Normal MV structure and function. Tricuspid Valve A trace of tricuspid regurgitation. Estimated peak systolic PA pressure is 25-30 mmHg . Pulmonic Valve Normal PV structure appears normal by available views. Aorta Aorticroot size (SInus of Valsalva diameter) is normal . Pericardium No significant pericardial effusion is visualized. IVC/SVC/PA/PV/Pleural The estimated RA pressure byIVC dynamics 5-10mmHg . Chambers/Structures Left Atrium LA Volume: 33.51 ml LA Area: 13.75 cm^2 LA Vol. Index: 18 ml/m^2 Left Ventricle LVIDd: 4.22 cm LV Septum Diastolic: 0.76 cm LV PW Diastolic: 0.77 cm LVOT Diameter: 1.9 cm Doppler/Quantitative Measurements Mitral Valve MV Peak E-Wave: 0.52 m/s MV Peak A-Wave: 0.87 m/s E/A Ratio: 0.6 Peak Gradient: 1.08mmHg MV Fredy. Peak: Tissue Doppler E' Septal Velocity: 0.09 m/s E/E': 5.91 E' Lateral V elocity: 0.09 m/s Aortic Valve Peak Velocity: 1.06 [...] LVOT SV:57.47 ml LVOT CO: 5.11 l/min LVOTCI: 2.79 l/min/m^2 Tricuspid Valve TR Velocity: 2.21 m/s TR Gradient: 19.45 mmHgAl[facility] CenterB[facility] Factor (BNP)2019-09-15 11:25:00 Test Item Value Reference Range Interpretation Comments BNP (test code = 16311-8) <10 0-100 MONIE (test code = MONIE) Registered Massage Therapist ID Cathy FLEMING F Lab Interpretation (test Normal code = 00396-4) [facility] (BNP)2019-09-15 11:25:00 Test Item Value Reference Range Interpretation Comments B-TYPE NATRIURETIC PEPTIDE (BEAKER) < pg/mL 0-100 (test code = 700) Registered Massage Therapist ID Cathy FLEMING FComprehensive metabolic [id number] 11:21:00 Test Item Value Reference Range Interpretation Comments Protein, Total (test 7.6 6.0- 8.3 gm/dL code = 2885-2) Albumin (test code = 4.4 g/dL 3.5-5 35269-1) Alkaline Phosphatase 72 U/L 40-150 (test code = 6768-6) Total Bilirubin (test 0.5 mg/dL 0.2-1.2 code = 1975-2) Sodium (test code = 136 meq/L 614-118 9268-2) Potassium (test code = 4.4 meq/L 3.5-5.1 2823-3) Chloride (test code = 99 meq/L 98-107 5-0) CO2 (test code = 31 meq/L 22-29 H 2027-9) BUN (test code = 32 mg/dL 7-21 H 3094-0) Creatinine (test code 1.29 mg/dL 0.57-1.25 H = 2160-0) Glucose (test code = 97 mg/dL 70-105 2345-7) Calcium (test code = 9.8 mg/dL 8.4-10.2 42430-2) AST (test code = 29 U/L 5-34 1920-8) ALT (test code = 19 U/L 6-55 1742-6) EGFR (test code = 40 mL/min/1.73 [place] [address]-0) NOT ACCURATE CREATININE CLEARANCE IN PREDICTING GLOMERULAR FILTRATION RATE . ESTIMATED GFR I S NOT APPLICABLE FOR DIALYSIS PATIENTS. MONIE (test code = MONIE) Registered Massage Therapist ID - LONNIE Lobo Lab Interpretation Abnormal (test code = 73659-8) [facility] CenterCOMPREHENSIVE METABOLIC [id number] 11:21:00 Test Item Value Reference Range Interpretation Comments TOTAL PROTEIN 7.6 gm/dL 6.0-8.3 (BEAKER) (test code = 770) ALBUMIN (BEAKER) 4.4 g/dL 3.5-5.0 (test code = 1145) ALKALINE PHOSPHATASE 72 U/L 40-150 (BEAKER) (test code = 346) BILIRUBIN TOTAL 0.5 mg/dL 0.2-1.2 (BEAKER) (test code = 377) SODIUM (BEAKER) (test 136 meq/L 136-145 code = 381) POTASSIUM (BEAKER) 4.4 meq/L 3.5-5.1 (test code = 379) CHLORIDE (BEAKER) 99 meq/L 98-107 (test code = 382) CO2 (BEAKER) (test 31 meq/L 22-29 H code = 355) BLOOD UREA NITROGEN 32 mg/dL 7-21 H (BEAKER) (test code = 354) CREATININE (BEAKER) 1.29 mg/dL 0.57-1.25 H (test code = 358) GLUCOSE RANDOM 97 mg/dL 70-105 (BEAKER) (test code = 652) CALCIUM (BEAKER) 9.8 mg/dL 8.4-10.2 (test code = 697) AST (SGOT) (BEAKER) 29 U/L 5-34 (test code = 353) ALT (SGPT) (BEAKER) 19 U/L 6-55 (test code = 347) EGFR (BEAKER) (test 40 mL/min/1.73 ESTIMA CHERYLE GFR IS code = 1092) sq m NOT ACCURATE CREATININE CLEARANCE IN PREDICTING GLOMERULAR FILTRATION RATE . ESTIMATED GFR I S NOT APPLICABLE FOR DIALYSIS PATIEN TS. Registered Massage Therapist ID - LONNIE FCBC W/PLT COUNT & AUTO [id number] 11:14:00 Test Item Value Reference Range Interpretation Comments WHITE BLOOD CELL COUNT (BEAKER) 4.2 K/ L 3.5-10.5 (test code = 775) RED BLOOD CELL COUNT (BEAKER) 4.19 M/ L 3.93-5.22 (test code = 761) HEMOGLOBIN (BEAKER) (test code = 12.3 GM/DL 11.2-15.7 410) HEMATOCRIT (BEAKER) (test code = 39.0 % 34.1-44.9 411) MEAN CORPUSCULAR VOLUME (BEAKER) 93.1 fL 79.4-94.8 (test code = 753) MEAN CORPUSCULAR HEMOGLOBIN 29.4 pg 25.6-32.2 (BEAKER) (test code = 751) MEAN CORPUSCULAR HEMOGLOBIN CONC 31.5 GM/DL 32.2-35.5 L (BEAKER) (test code = 752) RED CELL DISTRIBUTION WIDTH 12.1 % 11.7-14.4 (BEAKER) (test code = 412) PLATELET COUNT (BEAKER) (test 130 K/CU MM 150-450 L code = 756) MEAN PLATELET VOLUME (BEAKER) 10.4 fL 9.4-12.3 (test code = 754) NUCLEATED RED BLOOD CELLS 0 /100 WBC 0-0 (BEAKER) (test code = 413) NEUTROPHILS RELATIVE PERCENT 33 % (BEAKER) (test code = 429) LYMPHOCYTES RELATIVE PERCENT 52 % (BEAKER) (test code = 430) MONOCYTES RELATIVE PERCENT 9 % (BEAKER) (test code = 431) EOSINOPHILS RELATIVE PERCENT 4 % (BEAKER) (test code = 432) BASOPHILS RELATIVE PERCENT 1 % (BEAKER) (test code = 437) NEUTROPHILS ABSOLUTE COUNT 1.41 K/ L 1.56-6.13 L (BEAKER) (test code = 670) LYMPHOCYTES ABSOLUTE COUNT 2.21 K/ L 1.18-3.74 (BEAKER) (test code = 414) MONOCYTES ABSOLUTE COUNT (BEAKER) 0.38 K/ L 0.24-0.36 H (test code = 415) EOSINOPHILS ABSOLUTE COUNT 0.18 K/ L 0.04-0.36 (BEAKER) (test code = 416) BASOPHILS ABSOLUTE COUNT (BEAKER) 0.04 K/ L 0.01-0.08 (test code = 417) IMMATURE GRANULOCYTES-RELATIVE 0 % 0-1 PERCENT (BEAKER) (test code = 2801) CT, CTA CORONARY WITH CALCIUM EVAL AND FFR [id number] 12:22:00Addendum BeginsREPORT STATUS:A Addendum: I agree with the previously described non vascular findings. End of addendum. Signed: Kan Fontana MDReport Verified Date/Time: 06/23/2019 12:22:20 Reading Location: [address] Radiology Reading RoomAddendum EndsAddendum BeginsREPORT STATUS:A ADDENDUM: Data was sent for CT analysis, ct-ffr, to be performed by an independent third alliance party vendor. According to computer analysis, no obstructive lesion is identified. Please refer to the original conclusion for details. Signed: Saúl Layne MDReport Verified Date/Time: 06/23/2019 07:11:[address] coronary angio graphy, 22 June 2019 INDICATION: This is a very pleasant 78 -year old lady with with diagnosis of I 50.30, I 27.20 presents for assessment. According to daughter, patient has shortness of breath on exertion. TECHNIQUE: Spiral acquisition before and during intravenous contrast administration using a Brigido multidetector CT scanner. Multi-planar 3-D volume-rendering reconstruction was performed using an independent workstation interactively by the interpreting physician as well as the 3-D specialist for optimal visualisation of the coronary anatomy. Consecutive thin slices (< 1mm) were obtained. Arrival heart rate was suboptimal, of approximately 75 bpm. Medication administration: Oral metoprolol 100 mg;IV metoprolol 0 mg;S/L nitroglyercin 0.4 mg. Please refer to the contrast sheet scanned in the EPIC system for the amount and route of contrast given. This exam was performed according to our departmental dose-optimisation programme, which includes automated exposure control, adjustment of the mA and/or kV according to patient size and/or use of iterative reconstruction technique. Dose modulation, iterative reconstruction, and/or weight based adjustment of the mA/kV was utilized to reduce the radiation dose to as low as reasonably achievable. FINDINGS: VASCULAR: The thoracic aorta is normal in course, calibre, contour. No ectasia or aneurysmal dilation is identified. There isno acute aortic pathology, specifically, there is no dissection, contained rupture, and intramural hematoma. The arch vessel branching pattern is normal. The left vertebral artery arises directly fromthe transverse arch, anterior to the takeoff of the left subclavian artery, consider a normal variant. The central pulmonary artery is normal in calibre. The left ventricle is normal in size. Mild left atrial enlargement is identified. There is normal atrio-ventricular and ventriculo-arterial concordance, and systemic and pulmonary venous return. There is no pericardial effusion identified. Calciumscore and high-resolution, ECG synchronized computed tomography of the heart with attention to the coronary arteries was performed. Coronary calcification was analyzed using the [employer] system software.These are the results of the calcium score evaluation (threshold = 130 HU): LM: = 0 LAD: = 400 LCX: = 0 RCA: = 163 Agatston: = 563 Reference ranges for calcium scores are provided as follows ([place] Clin Proc 1999; 74: 243-252): 0-10: minimal calcium 11-100: mild calcium 101-400 moderate calcium > 400 significant c alcium The calcium score places patient between 75th to 90th percentile for age group, using the FAITH database. The coronary arteries have normal origins. The left main coronary artery arises from the left sinus of Valsalvaand give rise to the left anterior descending of the left circumflex arteries in the normal fashion. The right coronary artery arises from the right sinus of Valsalva. The left main coronary artery is widely patent. The proximal LAD has calcification identified, eccentrically located. There is still 50% of the cross-sectional area that is patent indicating nonobstructive disease present. Remainder of the the proximal LAD is unremarkable. In the mid LAD, similar Consultation is seen, with only nonobstructive disease identified. Remainder of the mid LAD is unremarkable. The distal LAD becomes a small calibre vessel. Nonobstructive indication is identified in the first diagonal artery. The left circumflex artery is a small calibre vessel. The right coronary artery is the dominant vessel. This widely patent. There is minimal calcific lesion seen in the mid RCA that is nonobstructive. The PDA supply much of the inferior septum and a prominent PL branches identified with nonobstructive calcification seen proximally. NON-VASCULAR: The visualised thyroid gland is unremarkable. The chest wall and mediastinum appears unremarkable. No significant adenopathy is identified in the mediastinum. In the lung windows, no endobronchial lesion is seen, and no pleural effusion is identified. Some dependent changes is seen in the lung bases. Calcified granuloma is identified in the right lung at image 25. Overall, no suspicious pulmonary nodule is identified. Limited images of the upper abdomen reveals no gross abnormality. No acute bony pathology is seen. Some degenerative changes is noted. CONCLUSIONS: 1. Quantitative coronary artery calcium Agatston score of 563. The calcium score places patient between 75th to 90th percentile for age group, using the FAITH database. 2. Normal coronary artery origins. The major epicardial coronary arteries including the left main coronary artery, the left anterior descending artery, left circumflex artery, and the right coronary artery are widely patent with no focal stenosis. There is calcification identified in the proximal and mid LAD, andalso in the RCA territory, as reflected by the calcium score, however, only nonobstructive disease is identified at these level, with less than 50% reduction in diameter. The above findings indicates the presence of coronary atherosclerosis The data will be sent for CT analysis, by an independent third alliance party vendor. Should the data be accepted for postprocessing, the result would be sent to PACS/InfraReDxen available. 3. No acute pulmonary pathology. Evidence of prior granulomatous disease. 4. Normal thoracic aorta. No ectasia or aneurysmal dilation is identified. 5. Other findings as described above. 6. The non-vascular findings will be reviewed by the Piece Worker Radiologist and addendum will be added as needed. Signed: Saúl Layneyale [facility] Verified Date/Time: 06/22/2019 12:11:30 CTA heart coronary with calcium evaluation with FFR (Heartflow)2019-06-22 12:11:00Interface, External Ris In - 06/23/2019 12:24 PM CSTAddendum BeginsREPORT STATUS:A Addendum: I agree with the previously described non vascular findings. End of addendum. Signed: Kan Fontana MDReport Verified Date/Time: 06/23/2019 12:22:20 Reading Location: [address] Radiology Reading RoomAddendum EndsAddendum BeginsREPORT STATUS:A ADDENDUM: Data was sent for CT analysis, ct-ffr, to be performed by an independent third alliance party vendor. According to computer analysis, no obstructive lesion is identified. Please refer to the original conclusion for details. Signed: Saúl Layne MDReport Verified Date/Time: 06/23/2019 07:11:[address] coronary angiography, 22 June 2019 INDICATION: This is a very pleasant 78 -year old lady with with diagnosis of I 50.30, I 27.20 presents for assessment. According to daughter, patient has shortness of breath on exertion. TECHNIQUE: Spiral acquisition before and during intravenous contrast administration using a Brigido multidetector CT scanner. Multi-planar 3-D volume-rendering reconstruction was performed using an independent workstation interactively by the interpreting physician as well as the 3-D specialist for optimal visualisation of the coronaryanatomy. Consecutive thin slices (< 1mm) were obtained. Arrival heart rate was suboptimal, of approximately 75 bpm. Medication administration: Oral metoprolol 100 mg;IV metoprolol 0 mg;S/L nitroglyercin 0.4 mg. Please refer to the contrast sheet scanned in the EPIC system for the amount and route of contrast given. This exam was performed according to our departmental dose-optimisation programme, which includes automated exposure control, adjustment of the mA and/or kV according to patient size and/or use of iterative reconstruction technique. Dose modulation, iterative reconstruction, and/orweight based adjustment of the mA/kV was utilized to reduce the radiation dose to as low as reasonably achievable. FINDINGS: VASCULAR: The thoracic aorta is normal in course, calibre, contour. No ectasia or aneurysmal dilation is identified. There is no acute aortic pathology, specifically, there is no dissection, contained rupture, and intramural hematoma. The arch vessel branching pattern is normal. The left vertebral artery arises directly from the transverse arch, anterior to the takeoff of the left subclavian artery, consider a normal variant. The central pulmonary artery is normal in calibre. The left ventricle is normal in size. Mild left atrial enlargement is identified. There is normal atrio-ventricular and ventriculo-arterial concordance, and systemic and pulmonary venous return. There is no pericardial effusion identified. Calcium score and high-resolution, ECG synchronized computed tomography of the heart with attention to the coronary arteries was performed. Coronary calcification was analyzed using the [employer] system software. These are the results of the calcium score evaluation (threshold = 130 HU): LM: = 0 LAD: = 400 LCX: = 0 RCA: = 163 Agatston: = 563 Reference ranges for calcium scores are provided as follows ([place] Clin Proc 1999; 74: 243-252): 0-10: minimal calcium 11-100: mild calcium 101-400 moderate calcium > 400 significant calcium The calcium score places patient [id number] to 90th percentile for age group, using the FAITH database. The coronary arteries have normal origins. The left main coronary artery arises from the left sinus of Valsalva and give rise to the left anterior descending ofthe left circumflex arteries in the normal fashion. The right coronary artery arises from the right sinus of Valsalva. The left main coronary artery is widely patent. The proximal LAD has calcification identified, eccentrically located. There is still 50% of the cross-sectional area that is patentindicating nonobstructive disease present. Remainder of the the proximal LAD is unremarkable. In themid LAD, similar Consultation is seen, with only nonobstructive disease identified. Remainder of themid LAD is unremarkable. The distal LAD becomes a small calibre vessel. Nonobstructive indication is identified in the first diagonal artery. The left circumflex artery is a small calibre vessel. The right coronary artery is the dominant vessel. This widely patent. There is minimal calcific lesion seen in the mid RCA that is nonobstructive. The PDA supply much of the inferior septum and a prominent PL branches identified with nonobstructive calcification seen proximally. NON- VASCULAR: The visualisedthyroid gland is unremarkable. The chest wall and mediastinum appears unremarkable. No significant adenopathy is identified in the mediastinum. In the lung windows, no endobronchial lesion is seen, and no pleural effusion is identified. Some dependent changes is seen in the lung bases. Calcified granuloma is identified in the right lung at image 25. Overall, no suspicious pulmonary nodule is identified. Limited images of the upper abdomen reveals no gross abnormality. No acute bony pathology is seen. Some degenerative changes is noted. CONCLUSIONS: 1. Quantitative coronary artery calcium Agatstonscore of 563. The calcium score places patient between 75th to 90th percentile for age group, usingthe FAITH database. 2. Normal coronary artery origins. The major epicardial coronary arteries including the left main coronary artery, the left anterior descending artery, left circumflex artery, and the right coronary artery are widely patent with no focal stenosis. There is calcification identified in the proximal and mid LAD, and also in the RCA territory, as reflected by the calcium score, however, only nonobstructive disease is identified at these level, with less than 50% re duction in diameter. The above findings indicates the presence of coronary atherosclerosis The data will be sent for CT analysis, by an independent third alliance party vendor. Should the data be accepted for postprocessing, the result would be sent to PACS/Trusera when available. 3. No acute pulmonary pathology. Evidence of prior granulomatous disease. 4. Normal thoracic aorta. No ectasia or aneurysmal dilation is identified. 5. Other findings as described above. 6. The non-vascular findings will be reviewed by the Piece Worker Radiologist and addendum will be added as needed. Signed: Saúl Layneeport Verified Date/Time: 06/22/2019 12:11:30 [facility] 2019-06-22 08:52:00 Test Item Value Reference Range Interpretation Comments POC-Creatinine (test 1.2 mg/dL 0.6-1.3 : TESTE D AT [facility] 6720 code = 1859) [facility], [id number]: Registered Massage Therapist/Techni antonio ID = [id number] for Jonny Reaves POC-EGFR (test code 43 mL/min/1.73M2 = 1860) [facility]-[id number] 08:52:00 Test Item Value Reference Range Interpretation Comments POC-CREATININE 1.2 mg/dL 0.6-1.3 : TESTED AT [facility] ([place]) (test 67[address] code = 1859) [place], [place]: Registered Massage Therapist/Techni antonio ID = [id number] for Jonny Estrada POC-EGFR ([place]) 43 mL/min/1.73M2 (test code = 1860) PET, CARDIAC PERFUSION MULTIPLE STUDIES, REST AND [id number] 15:35:00 Reason for Exam:->htnFINAL REPORT PROCEDURE: MYOCARDIAL PERFUSION PET IMAGING (Rest/Stress)CPT CODE: 33078 INDICATION: Evaluate for presence of CAD, dyspnea, CHF CARDIOVASCULAR PROFILE:CAD History: NoneSymptoms: DyspneaRisk Factors: Hypertension, family history of premature CADBMI: 28Medications: Benicar, triamterene/HCTZ, synthroid STRESS PROTOCOL:Pharmacologic stress was achieved with a 10-second intravenous infusion of regadenoson 0.4 mg. The radiopharmaceutical was administered 30 seconds after the start of the regadenoson infusion. IMAGING PROTOCOL:Limited low-dose CT imaging was performed for attenuation correction. 40.1 mCi of Rb-82 chloride was injected intravenously at rest, and gated PET images were obtained. Then, 40.1 mCi of Rb-82 chloride was injected intravenously at peak stress,and gated PET images were obtained. REST FINDINGS:HR: 78/minBP: 118/60 mmHgPrelim. EKG: Normal sinusrhythm, poor R-wave progression.Perfusion: Normal.Wall Motion: Normal (LVEF greater than 70%).LV Volume: Normal.RV Volume: Normal. STRESS FINDINGS:HR: 101/min (71% of MPHR)BP: 125/55 mmHgPrelim. EKG: No ischemic changes.Symptoms: None (treatment not required).Perfusion: Normal.Wall Motion: Normal (LVEF greater than 70%).LV Volume: Not significantly changed from rest. IMPRESSION:1. Normal study.2. Normal myocardial perfusion. 3. Normal resting LVEF, which does not deteriorate with pharmacologic stress.4. Normal extracardiac tracer distribution.5. There is no prior study for comparison. Signed: Scarlet Huerta MDReport Verified Date/Time: 01/19/2019 15:35:55 Reading Location: [address] [facility] Reading Room
--- OUTSIDE RECORDS SUMMARY | 2020-04-09 12:43 | XMS REPORT | Summary of Care ---
:1940 Author Organization [facility] [place] [address] Care Team Providers Name Role Phone Jasiel Fraire MD, Md Vip Jasiel Fraire MD Primary Care Provider Reason for Visit Reason Comments Annual Exam Encounter Details Date Type Department Care Team Description 03/03/2020 Office Visit [facility] John Hernadez, Annual Exam Medicine General Internal Medicine [address] [facility] [address] [facility] Floor; [address] [place] [address] [place] [address] [phone] Allergies Active Allergy Reactions Severity Noted Date Comments Adhesive Tape 07/15/2008 3m adhesive ta pe only Sulfa Antibiotics 07/15/2008 documented as of this encounter (statuses as of 03/03/2020) Medications Medication Sig Dispensed Refills Start Date End Date Status PRILOSEC OTC 20 MG 1 po qd 0 08/12/2006 Active OR TBEC CENTRUM SILVER OR 1 po qd 0 08/12/2006 A ctive TABS cetirizine (ZYRTEC) Take 10 mg by 0 Active 10 MG tablet mouth daily. pramipexole TAKE 1 TABLET 360 Tab 3 10/30/2018 Act brittani (MIRAPEX) 0.25 MG BY MOUTH 4 tablet TIMES A DAY mirtazapine TAKE 1 TABLET 90 Tab 3 04/08/2019 Act brittani (REMERON) 30 MG BY MOUTH AT tablet BEDTIME venlafaxine TAKE 1 CAPSULE 90 Cap 3 09/07/2019 Ac tive (EFFEXOR-XR) 75 MG BY MOUTH EVERY XR capsule DAY SYNTHROID 100 MCG TAKE 1 TABLET 90 Tab 3 09/07/2019 Active tablet BY MOUTH EVERY DAY busPIRone (BUSPAR) TAKE 1 TABLET 270 Tab 2 2019 Active 15 MG tablet BY MOUTH TWICE A DAY olmesartan TAKE 1 TABLET 90 Tab 3 01/19/2020 Acti ve (BENICAR) 20 MG BY MOUTH EVERY tablet DAY furosemide (LASIX) Take 1 Tab by 90 Tab 3 02/18/2020 Active 20 MG mouth daily. tabletIndications: SOB (shortness of breath), Chronic heart failure with preserved ejection fraction (HCCode) carisoprodol (SOMA) 1 tab 3-4 100 Tab 1 03/03/2020 Active 350 MG times daily, tabletIndications: prn severe Osteoarthritis of muscle spasm spine with (Flexeril no radiculopathy, longer works!) cervical region celecoxib TAKE ONE 180 Cap 3 03/03/2020 Active (CELEBREX) 200 MG CAPSULE BY capsule MOUTH TWICE A DAY WITH MEALS celecoxib TAKE ONE 180 Cap 3 11/09/2018 03/03/20 Discontin ued (CELEBREX) 200 MG CAPSULE BY 20 ( Reorder) capsule MOUTH TWICE A DAY WITH MEALS Acetaminophen-Codei 1 tab q 4-6 100 Each 0 01/29/2019 0 Discontinued ne 300-60 MG TABS hrs prn pain. 20 (*Temporary prescripti on) zolpidem (AMBIEN) TAKE 1 TABLET 30 Tab 1 06/25/2019 0 Discontinued 10 MG tablet BY MOUTH AT 20 (*Tem porary BEDTIME WHEN prescri ption) NECESSARY INSOMNIA benzonatate 1-2 caps TID 40 Cap 1 06/25/2019 03/03/20 Disc ontinued (TESSALON) 100 mg prn cough 20 (* Temporary capsule prescripti on) carisoprodol (SOMA) 1 tab 3-4 60 Tab 1 07/22/2019 03/03/20 Discontinued 350 MG tablet times daily, 20 prn severe muscle spasm (Flexeril no longer works!) documented as of this encounter (statuses as of 03/03/2020) Active Problems Problem Noted Date Diastolic congestive heart failure (HCCode) 03/03/2020 Restless leg syndrome 03/03/2020 Abdominal pain, right lateral 08/03/2016 Right lower quadrant abdominal pain 08/01/2016 Insomnia 10/01/2014 COLONIC POLYPS, HX OF 09/25/2007 SCREENING FOR MALIGNANT NEOPLASM, COLON 09/25/2007 ESSENTIAL HYPERTENSION 05/16/2007 POSTMENOPAUSAL STATUS 05/16/2007 BACK PAIN 08/12/2006 LUMP OR MASS IN BREAST 06/24/2006 G E R D OSTEOARTHRITIS HYPOTHYROIDISM documented as of this encounter (statuses as of 03/03/2020) Resolved Problems Problem Noted Date Resolved Date Sinusitis 04/12/2008 02/04/2013 VAGINITIS, CANDIDAL 12/10/2007 02/04/2013 Vaginal discharge 11/05/2007 03/07/2015 Bleeding, postmenopausal 11/05/2007 03/07/2015 SCREENING MAMMOGRAM NEC 09/25/2007 03/07/2015 Weakness 08/12/2006 02/04/2013 HYPERLIPIDEMIA, MIXED, MILD 08/12/2006 02/04/2013 Urinary frequency 08/12/2006 02/04/2013 Chest pain 08/12/2006 02/04/2013 Anxiety disorder 02/04/2013 Depression 03/07/2015 Seasonal allergies 02/04/2013 documented as of this encounter (statuses as of 03/03/2020) Immunizations Name Administration Dates Next Due Tdap 08/01/2012 documented as of this encounter Social History Tobacco Use Types Packs/Day Years Used Date Never Smoker Smokeless Tobacco: Never Used Alcohol Use Drinks/Week oz/Week Comments Yes 0-1 Standard drinks or equivalent 0.0 - 1.0 Alcoholic Drinks/day: Socially 1 drink a month/ rum & diet coke Sex Assigned at Date Recorded Female 11/29/2019 11:24 AM CDT COVID-19 Exposure Response Date Recorded In the last month, have you been in contact with No / Unsure 02/14/2020 12:50 AM CDT someone who was confirmed or suspected to have Coronavirus / COVID-19? documented as of this encounter Last Filed Vital Signs Vital Sign Reading Time Taken Comments Blood Pressure 148/80 03/03/2020 8:26 AM UNDERLAY STITCHER Pulse 73 03/03/2020 8:26 AM UNDERLAY STITCHER Temperature 35.9 C (96.7 F) 03/03/2020 8:26 AM UNDERLAY STITCHER Respiratory Rate - - Oxygen Saturation 98% 03/03/2020 8:26 AM UNDERLAY STITCHER Inhaled Oxygen Concentration - - Weight 88 kg (194 lb) 03/03/2020 8:26 AM UNDERLAY STITCHER Height 167.6 cm (5' 6") 03/03/2020 8:26 AM UNDERLAY STITCHER Body Mass Index 31.31 03/03/2020 8:26 AM UNDERLAY STITCHER documented in this encounter Patient Instructions Patient InstructionsJohn Fraire MD - 03/03/2020 8:00 AM CSTGreat to see you! Let's resume the old diuretic, once daily in the mornings with the generic Lasix. We might go back to both pills, let's give this a little time. Always a pleasure my dear, keep moving, all the best to both of you! Much love and hugs! RLAY STITCHER documented in this encounter Progress Notes John Fraire MD - 03/03/2020 8:00 AM CST Chief Complaint Patient presents with Annual Exam History of Present Illness: Ms. Castillo is a 79 y.o. year old female who presents for today for a Medicare Annual Wellness Visit Health Risk Assessment A printed copy of the Health Risk Assessment was filled out by the Ms. Castillo and reviewed. The printed copy was sent to be scanned. Positive findings are as follows: None. Illness and medical visits since last: Hand Turner for diastolic heart failure. Depression Screen (PHQ2) Depression Screenig 03/03/2020 Does the patient consent to screening? Yes Little interest or pleasure in doing things 0 Feeling down, depressed, or hopeless 0 PHQ-9 Total Score 0 Functional Status ADLs Dressing: independent Bathing: independent Walking: independent IADLs Shopping: independent Housekeeping: independent Managing Finances: independent Medication Management: independent Hearing Impairment Patient reports None. Fall Risk Fall Risk Screening 03/03/2020 Patient excluded from screening? No 2 or more falls in the last 12 months? 0 Any single fall in the past 12 months that caused injury? 0 Total 0 Home Safety Assessment performed, and No safety risks identified. Diet: Needs less salt, weight loss. Current Care Team: Care Team as of 03/03/2020 Care Team Provider: John Fraire MD, ([phone]) N/A: John Fraire MD, ([phone]) Past Medical History: Diagnosis Date Anxiety disorder Cataract 2002? Left eye only, corrected Chronic back pain Depression Fatty liver GERD (gastroesophageal reflux disease) Hypertension controlled with medication Hypothyroidism Osteoarthritis Seasonal allergic rhinitis tree pollen, weeds Seasonal allergies Thyroid disorder low thyroid test, take synthroid Past Surgical History: Procedure Laterality Date HX ABDOMEN SURGERY 1995 cosmetic HX ABDOMINOPLASTY HX BREAST SURGERY HX CARPAL TUNNEL RELEASE HX CATARACT REMOVAL 2004? HX CATARACT REMOVAL WITH IMPLANT Right eye, 2014 HX FACIAL COSMETIC SURGERY HX HYSTERECTOMY WITH BSO 1977 Not sure what the two catagorys mean HX HYSTERECTOMY, VAGINAL HX LUMBAR LAMINECTOMY HX SPINE SURGERY 2004? lower lumbar Family History Problem Relation Name Age of Onset CVA/Stroke Father Brandan Dela Cruz fatal High Blood Pressure Father Brandan Dela Cruz Ultimatle stroke Coronary Artery Disease Mother Marcelo Dela Cruz Valve replacement Depression Mother Marcelo Dela Cruz Shock treatments in the 50's Breast Cancer Other Lung Cancer Other Prostate Cancer Other Dementia Other Breast Cancer Sister Yenni Trivedi Dble. Masectomy-no chemo Depression Sister Yenni Trivedi not treated Depression Sister Roman Myers Medication Depression Sister Perla Pimentel not diagnosed Social History: Tobacco: She reports that she has never smoked. She has never used smokeless tobacco. Alcohol: She reports current alcohol use. Drug Use: She reports no history of drug use. Current Outpatient Medications on File Prior to Visit Medication Sig Dispense Refill busPIRone (BUSPAR) 15 MG tablet TAKE 1 TABLET BY MOUTH TWICE A DAY 270 Tab 2 CENTRUM SILVER OR TABS 1 po qd cetirizine (ZYRTEC) 10 MG tablet Take 10 mg by mouth daily. furosemide (LASIX) 20 MG tablet Take 1 Tab by mouth daily. 90 Tab 3 mirtazapine (REMERON) 30 MG tablet TAKE 1 TABLET BY MOUTH AT BEDTIME 90 Tab 3 olmesartan (BENICAR) 20 MG tablet TAKE 1 TABLET BY MOUTH EVERY DAY 90 Tab 3 pramipexole (MIRAPEX) 0.25 MG tablet TAKE 1 TABLET BY MOUTH 4 TIMES A DAY 360 Tab 3 PRILOSEC OTC 20 MG OR TBEC 1 po qd SYNTHROID 100 MCG tablet TAKE 1 TABLET BY MOUTH EVERY DAY 90 Tab 3 venlafaxine (EFFEXOR-XR) 75 MG XR capsule TAKE 1 CAPSULE BY MOUTH EVERY DAY 90 Cap 3 No current facility-administered medications on file prior to visit. Additional vitamins/supplements not listed above: None. Limited Exam Vitals: 03/03/20 08 BP: 148/80 BP Location: right arm Patient Position: Sitting Cuff Size: large Pulse: 73 Temp: 96.7 F (35.9 C) TempSrc: Temporal SpO2: 98% Weight: 194 lb (88 kg) Height: 5' 6" (1.676 m) Body mass index is 31.31 kg/m. Cognition: No evidence of cognitive decline. Normal mood and affect. Appropriate insight and judgement. Visual acuity screen: Please see below. Health Screening: Health Maintenance Topic Date Due BMI FOLLOW UP PLAN 11/21/1957 ZOSTER VACCINE (1 of 2) 11/21/1989 PNEUMOVAX >=65 (PPSV23) 11/21/2004 MEDICARE AWV (Subsequent) 12/03/2019 FALL SCREEN 06/01/2020 TETANUS SHOT (ADULT) 08/01/2022 OSTEOPOROSIS SCREENING Completed HPV VACCINE Aged Out FLU VACCINE > 6 MONTHS Discontinued Patient was provided with referrals and/or information on: ? Nutrition ? End-of-life planning and/or advanced directives Subjective: Ms. Mallika Castillo is an 79 y.o. female who presents on 03/03/2020 with hypertension. Most pleasant longtime patient, returns today for her Medicare AWV, as well as her [facility] Wellness evaluation. Mallika has diastolic heart failure. She is being closely followed by Dr. Moore, [facility]. Recently, her Aldactazide was discontinued, and she was given low-dose Lasix at 20 mg every morning. She is not doing as well. She notices more fluid retention. No chest pain, shortness of breath nor dyspnea on exertion, fortunately. All medications reviewed. Review of Systems: General: Some fatigue. Denies fever and chills. Eyes: Denies blurring, diplopia and irritation. ENT: Denies nasal congestion, sore throat, and hoarseness. CV: Denies chest pain, palpitations or shortness of breath. Resp: Denies dyspnea at rest and dyspnea with exercise. GI: Denies nausea, vomiting, abdominal pain, gas/bloating, diarrhea or constipation. : Denies urinary frequency. MS: Denies muscle weakness. Denies low back pain. Derm: Denies rash, itching, or dry skin. Neuro: Denies abnormal sensation or sciatica. Denies headaches. Psych: Denies depression or anxiety. Allergy: Denies hayfever or sneezing. Allergies Adhesive tape and Sulfa antibiotics Reviewed vital signs, allergies, medications, past and family/social history, problem list Physical Exam: BP 148/80 (BP Location: right arm, Patient Position: Sitting, Cuff Size: large) | Pulse 73 | Temp 96.7 F (35.9 C) (Temporal) | Ht 5' 6" (1.676 m) | Wt 194 lb (88 kg) | LMP 04/29/1977 Comment: SOB and swellen | SpO2 98% | BMI 31.31 kg/m Body mass index is 31.31 kg/m. General: Well developed, well nourished, in no acute distress. Very overweight. Has actually gained some weight recently. Could just be fluid retention. Head: Normocephalic and atraumatic. Eyes: PERRLA/EOMI intact, conjunctivae and sclerae clear; visual alford to confrontation normal and intact; bilateral vision Ears: Pinna normal, canals normal, TMs normal, hearing normal. Nose: No deformity, discharge, inflammation or lesions; septum intact; nontender sinuses Mouth: No deformity or lesions, normal teeth and gums, tongue normal, salivary glands normal. Neck: Supple, no masses; trachea midline, thyroid normal, no adenopathy. Chest Wall: Symmetrical, no deformities. Lungs: Clear bilaterally to percussion and auscultation; good breath sounds bilaterally. Heart: Regular rate and rhythm, normal heart size; normal S1, S2 without murmurs, rubs, gallops or clicks; bilateral, good carotid pulses without bruits. No jugular venous distention. Abdomen: Soft, nontender and nondistended without masses, organomegaly, or hernias noted; normal bowel sounds. MSK: Symmetrical with no deformity, with normal posture and gait, normal strength. Pulses: Pulses normal in all four extremities. Extremities: No clubbing, cyanosis, or deformity noted, with normal full range of motion of all joints. 1+ bilateral ankle edema. Neurologic: Alert and oriented x 3; cranial nerves II - XII normal; Station and gait normal, strength symmetrical and normal; normal, symmetrical DTR's. Skin: Intact without lesions or rashes. Cervical Nodes: No significant adenopathy. Axillary Nodes: No significant adenopathy. Psych: Alert and cooperative; normal mood and affect; normal attention span and concentration. The following tests were ordered for the [facility] Annual Wellness Program: Myeloperoxidase (MPO), Vitamin D, 25 OH, The VAP Test, Hemoglobin A1c (HbA1c), Complete Blood Count (CBC)/Diff, Comprehensive Metabolic Panel, Thyroid Stimulating Hormone (TSH), and Urinalysis. Also: EKG, screening spirometry, DENISSE, audiometry and visual acuity. Assessment: Hypertension Adherence HTN meds taken regularly YES Chemoprophylaxis ASA - YES Med side effects NO JNC VII - stage 1 (140-159/90-99) thiazide diuretic for most,or ACEi, ARB, BB, CCB stage 2 (>160/100) 2-drug combination - compelling conditions indicate specific Drugs Other Labs Lab Results Component Value Date CHOL 218 (H) 12/27/2010 LDLCALC 82 12/27/2010 TRIG 368 (H) 12/27/2010 Lab Results Component Value Date GLUCOSE 91 10/26/2019 Following Diet Plan? Low fat/chol diet poor Exercise level moderately active Smoking reports that she has never smoked. She has never used smokeless tobacco. Severity/control: Home BP check - YES Headache - NO BP Readings from Last 3 Encounters: 03/03/20 148/80 02/18/20 141/87 02/02/20 135/78 Patient's goal met? BP - <130/80 - NO JNC VII - goal <140/90 - <130/80 for patients with diabetes or chronic kidney disease Hypertension Controlled - NO We need to resume one tab of 25/37.5 Aldactazide every morning, along with the 20 mg of Lasix. We will give this a week or so. She might need to resume both of the Aldactazide tablets as before. She doesn't cook as much as before. They go out a lot. Unfortunately that means more salt and morefat, thus the weight gain. Screening audiometry is imperfect, visual acuity is declined. She sees her community development manager regularly. Recent EKG with the volunteer assistant. DENISSE normal. We will await her laboratory results, I will write her a detailed summary. Should she have further concerns or difficulties, she will let me know. Plan: @DIAGNOSESORDERS@ Discussed self-monitoring YES Gave Pt Self-Management Educational Materials YES RLAY STITCHER documented in this encounter Plan of Treatment Health Maintenance Due Date Last Done Comments BMI FOLLOW UP PLAN 11/21/1957 ZOSTER VACCINE (1 of 2) 11/21/1989 PNEUMOVAX >=65 (PPSV23) 11/21/2004 MEDICARE AWV (Subsequent) 12/03/2019 12/02/2018, 12/02/2018 , 11/18/2017, Additional history exists FALL SCREEN 06/01/2020 03/03/2020 TETANUS SHOT (ADULT) 08/01/2022 08/01/2012 OSTEOPOROSIS SCREENING Completed 03/07/2015, 02/04/2013, 11/02/2009 FLU VACCINE > 6 MONTHS Discontinued HPV VACCINE Aged Out No longer eligib le based on patient 's age to complete this topic documented as of this encounter Results Not on filedocumented in this encounter Visit Diagnoses Diagnosis Annual physical exam - Primary Routine general medical examination at a health care facility Osteoarthritis of spine with radiculopat hy, cervical region Acquired hypothyroidism Unspecified hypothyroidism Restless leg syndrome Restless legs syndrome (RLS) Diastolic congestive heart failure, unsp ecified HF chronicity (HCCode) documented in this encounter Insurance Payer Benefit Plan / Subscriber ID Effective Dates Phone Addre ss Type Group MEDICARE MEDICARE PART A [id number] 2014-Prese [address] Medicare [place] [address] [employer] INDEMNITY/TRADIT [id number] 2014-Prese [address] Indemnity IONAL CHOICE - [place] [employer] [id number] (Work) [phone] documented as of this encounter Advance Directives For more information, please contact: [phone] Type Date Recorded Patient Restaurant Maintenance Technician Explanati on Advance Directives and Living Will Power of Electronics Engineering Technologist
--- OUTSIDE RECORDS SUMMARY | 2020-04-09 12:43 | XMS REPORT | Summary of Care ---
:1940 Author Organization [facility] [place] [address] Care Team Providers Name Role Phone Jasiel Fraire MD, Md Vip Jasiel Fraire MD Primary Care Provider Reason for Referral Radiology Services (Routine) Status Reason Specialty Diagnoses / Procedures Referred By Magen horn Referred To Contact Pending Radiology Diagnoses SOB (shortness of breath) Chronic heart failure with preserved ejection fraction (HCCode) Valeriano Julian MD Procedures MRI CARDIAC W/WO CONTRAST (Routine) Status Reason Specialty Diagnoses / Procedures Referred By Miguel eferred To Contact Contact Pending Pulmonology Diagnoses SOB (shortness of breath) Valeriano Julian [facility] Procedures COMPLETE PFT WITH BRONCHODILATOR NE EVAL OF BRONCHOSPASM NE PRESSURIZED/NONPRESSURIZED INHALATION TREATMENT NE PLETHYSMOGRAPHY LUNG VOLUMES W/WO AIRWAY RESIST NE DIFFUSING CAPACITY NE PULMONARY SERVICE/PROCEDURE [address]; [address] [place] [address] Fax: Reason for Visit Reason Comments Congestive Heart Failure Diastolic Consult, Test & Treat (Routine) Status Reason Specialty Diagnoses / Referred By Referred To Procedures Contact Contact Pending Consult, Test, Cardiology Diagnoses SOB (shortness of breath) Consult, Test, and Treat Mic Michaels Mn Cardiology and Treat Procedures NE OFFICE OUTPATIENT NEW 30 MINUTES [facility] [address] [place], [place] [address], [place] [address] 4S Phone: [place], [place] [phone] [address] Fax: Fax: Encounter Details Date Type Department Care Team Description 02/18/2020 Office Visit [facility] Jeremy Moore Congest ive Heart Medicine Cardiology MD Failure Diastolic [address] [facility] [address] 6th [address], [address] [place] [address] [place] [address] [phone] Allergies Active Allergy Reactions Severity Noted Date Comments Adhesive Tape 07/15/2008 3m adhesive ta pe only Sulfa Antibiotics 07/15/2008 documented as of this encounter (statuses as of 02/22/2020) Medications Medication Sig Dispensed Refills Start Date End Date Status PRILOSEC OTC 20 MG OR 1 po qd 0 08/12/2006 Active TBEC CENTRUM SILVER OR 1 po qd 0 08/12/2006 A ctive TABS cetirizine (ZYRTEC) Take 10 mg by mouth 0 Active 10 MG tablet daily. pramipexole (MIRAPEX) TAKE 1 TABLET BY 360 Tab 3 10/30/2018 Active 0.25 MG tablet MOUTH 4 TIMES A DAY celecoxib (CELEBREX) TAKE ONE CAPSULE BY 180 Cap 3 9 Active 200 MG capsule MOUTH TWICE A DAY WITH MEALS Acetaminophen-Codeine 1 tab q 4-6 hrs prn 100 Each 0 01/30/20 19 Active 300-60 MG TABS pain. mirtazapine (REMERON) TAKE 1 TABLET BY 90 Tab 3 04/08/2019 Active 30 MG tablet MOUTH AT BEDTIME zolpidem (AMBIEN) 10 TAKE 1 TABLET BY 30 Tab 1 06/25/2019 Active MG tablet MOUTH AT BEDTIME WHEN NECESSARY INSOMNIA Additional Information Patient not taking. Reason: PRN Med, Reported on 07/07/2019 9:54 AM benzonatate (TESSALON) 100 mg 1-2 caps TID prn cough 40 Cap 1 06/25/2019 Active capsule Additional Information Patient not taking. Reason: PRN Med, Reported on 07/07/2019 9:54 AM carisoprodol (SOMA) 1 tab 3-4 times 60 Tab 1 07/22/2019 Active 350 MG tablet daily, prn severe muscle spasm (Flexeril no longer works!) venlafaxine TAKE 1 CAPSULE BY 90 Cap 3 09/07/2019 Active (EFFEXOR-XR) 75 MG MOUTH EVERY DAY XR capsule SYNTHROID 100 MCG TAKE 1 TABLET BY 90 Tab 3 09/07/2019 Active tablet MOUTH EVERY DAY busPIRone (BUSPAR) TAKE 1 TABLET BY 270 Tab 2 2019 Active 15 MG tablet MOUTH TWICE A DAY olmesartan (BENICAR) TAKE 1 TABLET BY 90 Tab 3 01/19/2020 Active 20 MG tablet MOUTH EVERY DAY furosemide (LASIX) Take 1 Tab by 90 Tab 3 02/18/2020 Active 20 MG mouth daily. tabletIndications: SOB (shortness of breath), Chronic heart failure with preserved ejection fraction (HCCode) triamterene-hydrochl TAKE 1 TABLET BY 180 Tab 3 06/03/2019 1 Discontinued orothiazide MOUTH TWICE A DAY 20 (*Error) (MAXZIDE) 37.5-25 MG per tablet documented as of this encounter (statuses as of 02/22/2020) Active Problems Problem Noted Date Abdominal pain, right lateral 08/03/2016 Right lower quadrant abdominal pain 08/01/2016 Insomnia 10/01/2014 COLONIC POLYPS, HX OF 09/25/2007 SCREENING FOR MALIGNANT NEOPLASM, COLON 09/25/2007 ESSENTIAL HYPERTENSION 05/16/2007 POSTMENOPAUSAL STATUS 05/16/2007 BACK PAIN 08/12/2006 LUMP OR MASS IN BREAST 06/24/2006 G E R D OSTEOARTHRITIS HYPOTHYROIDISM documented as of this encounter (statuses as of 02/22/2020) Resolved Problems Problem Noted Date Resolved Date Sinusitis 04/12/2008 02/04/2013 VAGINITIS, CANDIDAL 12/10/2007 02/04/2013 Vaginal discharge 11/05/2007 03/07/2015 Bleeding, postmenopausal 11/05/2007 03/07/2015 SCREENING MAMMOGRAM NEC 09/25/2007 03/07/2015 Weakness 08/12/2006 02/04/2013 HYPERLIPIDEMIA, MIXED, MILD 08/12/2006 02/04/2013 Urinary frequency 08/12/2006 02/04/2013 Chest pain 08/12/2006 02/04/2013 Anxiety disorder 02/04/2013 Depression 03/07/2015 Seasonal allergies 02/04/2013 documented as of this encounter (statuses as of 02/22/2020) Social History Tobacco Use Types Packs/Day Years [...] Sign Reading Time Taken Comments Blood Pressure 141/87 02/18/2020 10:34 AM CDT Pulse 85 02/18/2020 10:34 AM CDT Temperature - - Respiratory Rate 16 02/18/2020 10:34 AM CDT Oxygen Saturation 97% 02/18/2020 10:34 AM CDT Inhaled Oxygen Concentration - - Weight 83.9 kg (185 lb) 02/18/2020 10:34 AM CDT Height 167.6 cm (5' 6") 02/18/2020 10:34 AM CDT Body Mass Index 29.86 02/18/2020 10:34 AM CDT documented in this encounter Progress Notes Valeriano Julian MD - 02/18/2020 11:20 AM CDT Date: February 18, 2020 Patient Name: Mallika Castillo Patient Date of : 1940 Chief Complaint: Dyspnea on Exertion HISTORY History of Present Illness: Mallika Castillo is a 79 y.o. female HTN, hypothyroidism, osteoarthritis, anxiety disorder, chronic back pain, and recently diagnosed HFpEF after presenting to Dr. Cade for the development of dyspnea on exertion over the last few months. She initially came to see Dr. Cade as she recalled her mother developed similar symptoms in older age and was told she had a valve issue. Unfortunately her mother during surgical intervention for the valve. Ms. Ward's echo did not show significant valvular abnormalities to explain her symptoms, but it did reveal diastolic dysfunction. This was further evaluated by Dr. Cade with a bike stress echo which showed increased PA pressures at peak stress (64-69 mmHg) from rest (41-46 mmHg). Stress PET was negative for myocardial perfusion defects. PFT's showed normal FEV1/FVC ratio. She has been on triamterene/HCTZ for several years for HTN. Ms. Castillo denies significant swelling in her legs and has not required increase in diuretic regimen. She denies any recent hospitalizations. Ms. Castillo does however continue to experience significant dyspnea on minimal exertion, even when moving from room to room in her house. Before these symptoms she has always been very active, doing lots of work around the house and in her garden. She denies chest pain, jaw pain, or nausea. No fever, chills, weight loss, tremors, palpitations, or any other complaints. Given the persistence of her symptoms she has been referred by Dr. Cade to Dr. Moore to be considered for the REDUCE LAP-HF II trial. Clinic visit 02/18/20: - she was precluded from REDUCE LAP-HF II trial due to no hospitalizations for CHF and normal BNP - since last visit Ms. Castillo has undergone coronary CTA which showed disease and calcium, follow up coronary angio by Dr. Cade didn't show obstructive CAD but RHC at the same time showed elevated filling pressures (RAP 16, mean PA 27, PCWP 24) - she continues to feel significant shortness of breath on minimal exertion, she also complains of pain in her left arm a few times a day, and a few nights ago waking up with chest pressure that resolved after a few minutes. Reports lower extremity edema at times. - denies fever, cough, nausea, headache or any other complaints Current Medications: Current Outpatient Medications Medication Sig Dispense Refill Acetaminophen-Codeine 300-60 MG TABS 1 tab q 4-6 hrs prn pain. 100 Each 0 benzonatate (TESSALON) 100 mg capsule 1-2 caps TID prn cough (Patient not taking: Reported on 07/07/2019) 40 Cap 1 busPIRone (BUSPAR) 15 MG tablet TAKE 1 TABLET BY MOUTH TWICE A DAY 270 Tab 2 carisoprodol (SOMA) 350 MG tablet 1 tab 3-4 times daily, prn severe muscle spasm (Flexeril no longer works!) 60 Tab 1 celecoxib (CELEBREX) 200 MG capsule TAKE ONE CAPSULE BY MOUTH TWICE A DAY WITH MEALS 180 Cap 3 CENTRUM SILVER OR TABS 1 po qd cetirizine (ZYRTEC) 10 MG tablet Take 10 mg by mouth daily. mirtazapine (REMERON) 30 MG tablet TAKE 1 [...] BY MOUTH EVERY DAY 90 Tab 3 triamterene-hydrochlorothiazide (MAXZIDE) 37.5-25 MG per tablet TAKE 1 TABLET BY MOUTH TWICE A DAY 180 Tab 3 venlafaxine (EFFEXOR-XR) 75 MG XR capsule TAKE 1 CAPSULE BY MOUTH EVERY DAY 90 Cap 3 zolpidem (AMBIEN) 10 MG tablet TAKE 1 TABLET BY MOUTH AT BEDTIME WHEN NECESSARY INSOMNIA (Patient not taking: Reported on 07/07/2019) 30 Tab 1 No current facility-administered medications for this visit. Allergies: Allergies Allergen Reactions Adhesive Tape 3m adhesive tape only Sulfa Antibiotics Past Medical History: Past Medical History: Diagnosis Date Anxiety disorder Cataract 2002? Left eye only, corrected Chronic back pain Depression Fatty liver GERD (gastroesophageal reflux disease) Hypertension controlled with medication Hypothyroidism Osteoarthritis Seasonal allergic rhinitis tree pollen, weeds Seasonal allergies Thyroid disorder low thyroid test, take synthroid Past Surgical History: Past Surgical History: Procedure Laterality Date HX ABDOMEN SURGERY 1995 cosmetic HX ABDOMINOPLASTY HX BREAST SURGERY HX CARPAL TUNNEL RELEASE HX CATARACT REMOVAL 2004? HX CATARACT REMOVAL WITH IMPLANT Right eye, 2014 HX FACIAL COSMETIC SURGERY HX HYSTERECTOMY WITH BSO 1977 Not sure what the two catagorys mean HX HYSTERECTOMY, VAGINAL HX LUMBAR LAMINECTOMY HX SPINE SURGERY 2004? lower lumbar Social History: Social History Tobacco Use Smoking status: Never Smoker Smokeless tobacco: Never Used Substance Use Topics Alcohol use: Yes Alcohol/week: 0.0 - 1.0 standard drinks Comment: Alcoholic Drinks/day: Socially 1 drink a month/ rum & diet coke The patient has no history of alcohol abuse (abuse = men: >5 drinks/day or >15 drinks/wk, women: >4 drinks/day or >8 drinks/wk). Family History: Family History Problem Relation Name Age of [...] Medication Depression Sister Perla Pimentel not diagnosed Review of Systems: A full 12-system review was performed and documented below. Review of Systems Constitutional: Negative. HENT: Negative. Eyes: Negative. Respiratory: Positive for shortness of breath. Negative for cough, sputum production and wheezing. Cardiovascular: Negative for chest pain, palpitations, orthopnea, claudication, leg swelling and PND. Gastrointestinal: Negative. Genitourinary: Negative. Musculoskeletal: Positive for back pain. Negative for falls. Skin: Negative. Neurological: Negative. Psychiatric/Behavioral: Negative. EXAMINATION BP 141/87 | Pulse 85 | Resp 16 | Ht 5' 6" (1.676 m) | Wt 185 lb (83.9 kg) | LMP 04/29/1977 Comment: SOB and swellen | SpO2 97% | BMI 29.86 kg/m General appearance alert, cooperative, no distress, appears stated age Head Normocephalic, without obvious abnormality, atraumatic Eyes conjunctivae/corneas clear. PERRL, EOM's intact. Fundi benign Neck supple, symmetrical, trachea midline, no adenopathy, thyroid: not enlarged, symmetric, no tenderness/mass/nodules, no carotid bruit and no JVD Lungs clear to auscultation bilaterally Chest wall no tenderness Heart regular rate and rhythm, S1, S2 normal, no murmur, click, rub or gallop Abdomen soft, non-tender. Bowel sounds normal. No masses, No organomegaly Extremities extremities normal, atraumatic, no cyanosis or edema Pulses 2+ and symmetric Skin Skin color, texture, turgor normal. No rashes or lesions Neurologic Normal DATA Laboratory Testing: Results for orders placed or performed in visit on 10/22/19 NOVEL 2019 CORONAVIRUS(COVID-19),[facility] Specimen: Other Result Value Ref Range SARS-COV-2 Negative Not Detected, Negative REPORT NOTES CPL CBC W/AUTO DIFF WITH PLATELETS Result Value Ref Range WHITE BLOOD CELL COUNT 4.7 3.5 - 10.5 K/ L RED BLOOD CELL COUNT 3.93 3.93 - 5.22 M/ L HEMOGLOBIN 11.9 11.2 - 15.7 GM/DL HEMATOCRIT 37.1 34.1 - 44.9 % MEAN CORPUSCULAR VOLUME 94.4 79.4 - 94.8 fL MEAN CORPUSCULAR HEMOGLOBIN 30.3 25.6 - 32.2 pg MEAN CORPUSCULAR HEMOGLOBIN CONC 32.1 (L) 32.2 - 35.5 GM/DL RED CELL DISTRIBUTION WIDTH 12.4 11.7 - 14.4 % PLATELET COUNT 124 (L) 150 - 450 K/CU MM MEAN PLATELET VOLUME 10.5 9.4 - 12.3 fL NUCLEATED RED BLOOD CELLS 0 0 - 0 /100 WBC NEUTROPHILS % 34 % LYMPHOCYTES % 52 % MONOCYTES % 10 % EOSINOPHILS % 4 % BASOPHILS % 1 % NEUTROPHILS ABSOLUTE COUNT 1.59 1.56 - 6.13 K/ L LYMPHOCYTES ABSOLUTE COUNT 2.44 1.18 - 3.74 K/ L MONOCYTES ABSOLUTE COUNT 0.46 (H) 0.24 - 0.36 K/ L EOSINOPHILS ABSOLUTE COUNT 0.18 0.04 - 0.36 K/ L BASOPHILS ABSOLUTE COUNT 0.04 0.01 - 0.08 K/ L IMMATURE GRANULOCYTES 0 0 - 1 % PROTIME-INR Result Value Ref Range PROTIME 12.9 11.9 - 14.2 seconds INR 1.0 <=5.9 BASIC METABOLIC PANEL Result Value Ref Range SODIUM 142 136 - 145 meq/L POTASSIUM 4.1 3.5 - 5.1 meq/L CHLORIDE 107 98 - 107 meq/L CO2 26 22 - 29 meq/L BLOOD UREA NITROGEN 33 (H) 7 - 21 mg/dL CREATININE 1.06 0.57 - 1.25 mg/dL GLUCOSE 91 70 - 105 mg/dL CALCIUM 9.4 8.4 - 10.2 mg/dL EGFR 50 mL/min/1.73 sq m Cardiology Studies: Electrocardiogram: NSR Bike stress Echo 12/15/2018 SUMMARY: ++++++++++++++++++++++++++++++++++++ Bicycle stress echo performed for diastolic assessment and PA pressures. Patient exercised on the supine bike stress for 6:19, achieving a maximum workload of 4.9 METS (75 VALENCIA). The resting heart rate of 86 bpm salma to a maximum of 134 bpm. This value represents 95% of the maximal, age-predicted heart rate. The resting blood pressure of 157/93 salma to a maximum blood pressure of 158/71 mmHg. The exercise test was stopped due to shortness of breath, target achieved and images obtained. There were no significant ST changes or arrhythmia. 2D DATA: Baseline images show grossly normal LV size and function. LA is normal in size based on biplane volume on current study and the prior TTE done on 10/22/2018 DOPPLER DATA: Rest: E 81 cm/s, A 111 cm/s, lateral E' 8.3 cm/sec, septal E' 8.1cm/sec Midpoint: E/A fusion. Lateral E' 13.6 cm/sec, septal E' 12.2 cm/sec At peak stress: E/A fusion. Lateral E' 9 cm/sec, septal E' 10.1 cm/sec IV saline was used to enhance TR jet. Incomplete TR jet. RA pressure 0-5 mmHg PASP at Rest: is at least 41-46 mmHg (TR 3.2 m/s) PASP at Midpoint is at least 46-51 mmHg (TR 3.4 m/s) PASP at peak stress is at least 64-69 mmHg (TR 4 m/s) Conclusion: 1. Supine Bike Stress echo with patient being able to exercise for 6 mins, 19 seconds and peak heart rate of 134 bpm ( 95% of age predicted) 2. The resting PA pressure by TR was at least 41-46 mmHg assuming RA pressure 0-5 mmHg which salma to a maximum PA pressure of at least 64-69 mmHg assuming RA pressure 0-5 mmHg. There was E/A fusion with exercise. 3. At baseline there were no wall motion abnormalities noted. At peak stress the endocardium was not adequately visualized to assess wall motion in all segments and hence study is inadequate for evaluation of presence/absence of CAD. 4. Oxygen saturation at baseline was 97% on room air and at peak was 94% on room air. ++++++++++++++++++++++++++++++++++++ MEASUREMENTS: ++++++++++++++++++++++++++++++++++++ DOPPLER Mitral Valve MV pkE 84.8 cm/s (60-130) MV E/A 0.8 MV pkA 111.3 cm/s TV Regurg Flow TV pkVel 291 cm/s (30-70) TV pkPG 33.9 mmHg TV PA Sys Press TI tatum 314.3 cm/s RV-RA PG 39.5 mmHg Left Ventricle LaLat Em 10.4 cm/s TV Pressure Gradient TV PG 40.6 mmHg 2D LA Biplane LA VolBP 38.4 ml Signed 12/15/2018 04:01 PM Jackeline Mclaughlin M.D. TTE 10/22/2018: 1. Left ventricular chamber size (by vol index) is normal. No evidence of LV hypertrophy. All of the LV segments contract normally. Estimated LVEF by qualitative assessment is normal (> 60%). Degree (grade) of diastolic dysfunction is indeterminate. 2. The right ventricular chamber size and systolic function are within normal limits. 3. LA size is normal. Grossly RA appears normal in size. 4. Trace TR. Peak systolic PA pressure may be underestimated; partial TR signal. Estimated Peak systolic pressure is at least 25-30 mm Hg. The estimated RA pressure by IVC dynamics 0-5 mm Hg. PET rest and stress 01/19/2019 REST FINDINGS: HR: 78/min BP: 118/60 mmHg Prelim. EKG: Normal sinus rhythm, poor R-wave progression. Perfusion: Normal. Wall Motion: Normal (LVEF greater than 70%). LV Volume: Normal. RV Volume: Normal. STRESS FINDINGS: HR: 101/min (71% of MPHR) BP: 125/55 mmHg Prelim. EKG: No ischemic changes. Symptoms: None (treatment not required). Perfusion: Normal. Wall Motion: Normal (LVEF greater than 70%). LV Volume: Not significantly changed from rest. IMPRESSION: 1. Normal study. 2. Normal myocardial perfusion. 3. Normal resting LVEF, which does not deteriorate with pharmacologic stress. 4. Normal extracardiac tracer distribution. 5. There is no prior study for comparison. Signed: Scarlet Huerta MD Report Verified Date/Time:01/19/2019 15:35:55 Reading Location: [place] [id number] Reading Room Coronary 06/22/19 CONCLUSIONS: 1.Quantitative coronary artery calcium Agatston score of 563. The calcium score places patient between 75th to 90th percentile for age group, using the FAITH database. 2.Normal coronary artery origins. The major epicardial coronary [...] postprocessing, the result would be sent to [employer] when available. 3.No acute pulmonary pathology. Evidence of prior granulomatous disease. 4.Normal thoracic aorta. No ectasia or aneurysmal dilation is identified. 5.Other findings as described above. 6.The non-vascular findings will be reviewed by the [facility] [employer] [facility] Radiologist and addendum will be added as needed. RHC/LHC 10/26/19 Site A mmHg or Syst V mmHg Or Diast Mean mmHg O2 Sat % Comments SVC IVC RA 19 17 16 RV 37 11 18 PA 34 20 27 PAW 28 28 24 LA LV LVEF Ao 149 77 101 Cardiac Output Nisreen Thermo Comments Cardiac Output L/min 4.33 Cardiac Index L-m2/min 2.3 Coronary Angiography Findings: Left Main - Ok Anterior Descending - Normal Cicumflex/OM Branches - Normal Right Coronary - Normal IMPRESSION Mallika Castillo is a 79 y.o. female with a history of HFpEF with persistent dyspnea. SUMMARY AND PLAN #Dypsnea on exertion #HFpEF - Obtain cardiac MRI - Obtain PFT's - Pending these studies will consider RHC with exercise - stop triamterene/HCTZ, start furosemide 20mg PO daily - follow up in 2 months Thank you for referring this patient for consultation and allowing me to participate in her care. Please do not hesitate to call with any questions. Valeriano Julian MD Burn Table Operator, PGY-6 [facility] Will obtain Cardiac MRI and PFTs. May eventually plan for RHC with exercise (and check BNP after exercise). Follow-up after that. Jeremy Moore MD FACC [employer], [facility] Clinic Main: [phone] [facility] Clini cFax: [facility] Office Main: [phone] Pager: [phone] Email: [email or web address] documented in this encounter Plan of Treatment Name Type Priority Associated Diagnoses Order S chedule COMPLETE PFT WITH PFT Routine SOB (shortness of 1 Occ urrences starting BRONCHODILATOR breath) 02/18/2020 un til 02/17/2021 MRI CARDIAC W/WO CONTRAST Imaging Routine SOB (shortness of 1 Occurrences starting breath) 02/18/2020 until Chronic heart failure 2020 with preserved ejection fraction (HCCode) Health Maintenance Due Date Last Done Comments BMI FOLLOW UP PLAN 11/21/1957 ZOSTER VACCINE (1 of 2) 11/21/1989 PNEUMOVAX >=65 (PPSV23) 11/21/2004 FLU VACCINE > 6 MONTHS 11/28/2019 MEDICARE AWV (Subsequent) 12/03/2019 12/02/2018, 12/02/2018 , 11/18/2017, Additional history exists FALL SCREEN 06/01/2020 06/01/2019 TETANUS SHOT (ADULT) 08/01/2022 08/01/2012 OSTEOPOROSIS SCREENING Completed 03/07/2015, 02/04/2013, 0 11/02/2009 documented as of this encounter Results Not on filedocumented in this encounter Visit Diagnoses Diagnosis SOB (shortness of breath) - Primary Shortness of breath Chronic heart failure with preserved eje ction fraction (HCCode) documented in this encounter Insurance Payer Benefit Plan / Subscriber ID Effective Dates Phone Addre ss Type Group MEDICARE MEDICARE PART A [id number] 2014-Prese [address] Medicare [place] [address] [employer] INDEMNITY/TRADIT [id number] 2014-Prese [address] Indemnity IONAL CHOICE - [place] [employer] [address] (Work) [phone] documented as of this encounter Advance Directives For more information, please contact: [phone] Type Date Recorded Patient Pe Manager Explanati on Advance Directives and Living Will Power of Furnace Converter
--- OUTSIDE RECORDS SUMMARY | 2020-04-09 12:43 | XMS REPORT | Summary of Care ---
:1940 Author Organization [facility] [place] [address] Care Team Providers Name Role Phone Jasiel Fraire MD, Md Vip Jasiel Fraire MD Primary Care Provider Reason for Referral Consult, Test & Treat (Routine) Status Reason Specialty Diagnoses / Referred By Referred To Procedures Contact Contact Pending Consult, Test, Cardiology Diagnoses SOB (shortness of breath) Mic Michaels Mn Cardiology and Treat Procedures IN OFFICE OUTPATIENT NEW 30 MINUTES [facility]PC [address] [place], [place] 6th Floor, [place] [address] 4Z Phone: [place], [place] [phone] [address] Fax: Fax: Reason for Visit Reason Comments Cardiology Follow-up Encounter Details Date Type Department Care Team Description 02/02[facility]2020 [facility] [address] 6th [address], [address] [place] [address] [place], [place] [phone] [phone] Allergies Active Allergy Reactions Severity Noted Date Comments Adhesive Tape 07/15/2008 3m adhesive ta pe only Sulfa Antibiotics 07/15/2008 documented as of this encounter (statuses as of 02/02/2020) Medications Medication Sig Dispensed Refills Start Date [...] Active 30 MG tablet MOUTH AT BEDTIME triamterene-hydrochlo TAKE 1 TABLET BY 180 Tab 3 06/03/2019 Active rothiazide (MAXZIDE) MOUTH TWICE A DAY 37.5-25 MG per tablet zolpidem (AMBIEN) 10 TAKE 1 TABLET BY 30 Tab 1 06/25/2019 Active MG tablet MOUTH AT BEDTIME WHEN NECESSARY INSOMNIA Additional Information Patient not taking. Reason: PRN Med, Reported on 07/07/2019 9:54 AM benzonatate (TESSALON) 100 mg 1-2 caps TID prn cough 40 Cap 1 06/25/2019 Active capsule Additional Information Patient not taking. Reason: PRN Med, Reported on 07/07/2019 9:54 AM carisoprodol (SOMA) 350 MG 1 tab 3-4 times daily, prn 60 Tab 1 07/22/2019 Active tablet severe muscle spasm (Flexeril no longer works!) venlafaxine (EFFEXOR-XR) 75 TAKE 1 CAPSULE BY MOUTH 90 Cap 3 09/07/2019 Active MG XR capsule EVERY DAY SYNTHROID 100 MCG tablet TAKE 1 TABLET BY MOUTH 90 Tab 3 Active EVERY DAY busPIRone (BUSPAR) 15 MG TAKE 1 TABLET BY MOUTH 270 Tab 2 Active tablet TWICE A DAY olmesartan (BENICAR) 20 MG TAKE 1 TABLET BY MOUTH 90 Tab 3 01/19/2020 Active tablet EVERY DAY documented as of this encounter (statuses as of 02/02/2020) Active Problems Problem Noted Date Abdominal pain, right lateral 08/03/2016 Right lower quadrant abdominal pain 08/01/2016 Insomnia 10/01/2014 COLONIC POLYPS, HX OF 09/25/2007 SCREENING FOR MALIGNANT NEOPLASM, COLON 09/25/2007 ESSENTIAL HYPERTENSION 05/16/2007 POSTMENOPAUSAL STATUS 05/16/2007 BACK PAIN 08/12/2006 LUMP OR MASS IN BREAST 06/24/2006 G E R D OSTEOARTHRITIS HYPOTHYROIDISM documented as of this encounter (statuses as of 02/02/2020) Resolved Problems Problem Noted Date Resolved Date Sinusitis 04/12/2008 02/04/2013 VAGINITIS, CANDIDAL 12/10/2007 02/04/2013 Vaginal discharge 11/05/2007 03/07/2015 Bleeding, postmenopausal 11/05/2007 03/07/2015 SCREENING MAMMOGRAM NEC 09/25/2007 03/07/2015 Weakness 08/12/2006 02/04/2013 HYPERLIPIDEMIA, MIXED, MILD 08/12/2006 02/04/2013 Urinary frequency 08/12/2006 02/04/2013 Chest pain 08/12/2006 02/04/2013 Anxiety disorder 02/04/2013 Depression 03/07/2015 Seasonal allergies 02/04/2013 documented as of this encounter (statuses as of 02/02/2020) Social History Tobacco Use Types Packs/Day Years [...] been in contact with No / Unsure 02/01/2020 9:31 PM CDT someone who was confirmed or suspected to have Coronavirus / COVID-19? documented as of this encounter Last Filed Vital Signs Vital Sign Reading Time Taken Comments Blood Pressure 135/78 02/02/2020 1:32 PM CDT Pulse 95 02/02/2020 1:32 PM CDT Temperature - - Respiratory Rate 16 02/02/2020 1:32 PM CDT Oxygen Saturation 97% 02/02/2020 1:32 PM CDT Inhaled Oxygen Concentration - - Weight 86.2 kg (190 lb) 02/02/2020 1:32 PM CDT Height 167.6 cm (5' 6") 02/02/2020 1:32 PM CDT Body Mass Index 30.67 02/02/2020 1:32 PM CDT documented in this encounter Patient Instructions Patient InstructionsRoger Cade MD - 02/02/2020 2:00 PM CDT1) Same medicines. 2) Referral to see Dr Moore for Diastolic Heart Failure. 3) Follow-up in 6 months. documented in this encounter Progress Notes Roger Cade MD - 02/02/2020 2:00 PM CDT Date: February 02, 2020 Patient Name: Mallika Castillo : 1940 Referring Physician: Dr. Fraire Reason for Visit: Problem List: #SOB/POWERS - Currently physically deconditioned due to chronic back pain from osteoarthritis - TTE 10/22/2018: LVEF > 60%, Degree of diastolic dysfunction is indeterminate, Estimated Peak systolic pressure is at least 25-30 mm Hg - Bike stress echocardiogram 12/15/2018: Resting PA pressure bat least 41-46 mmHg assuming RA pressure 0-5 mmHg which salma to a maximum PA pressure of at least 64-69 mmHg assuming RA pressure 0-5 mmHg. There was E/A fusion with exercise. - PET Rest/Stress 01/19/2019: Normal myocardial perfusion. No areas of ischemia noted. LVEF >70% - CTA Coronaries 06/22/2019: Agatston: = 563, Calcification identified in the proximal and mid LAD, and also in the RCA territory, as reflected by the calcium score - S/p Cardiac Cath 10/26/2019: No significant stenosis #HTN - triamterene-HCTZ #Chronic Back Pain/Osteoarthritis - MRI with significant arthritic changes, lumbar spinal stenosis and foraminal stenosis at multiple levels - acetaminophen- codeine, carisoprodol, celecoxib, venlafaxine Current Medications: Current Outpatient Medications Medication Sig [...] No current facility-administered medications for this visit. Chief Complaint: Chief Complaint Patient presents with Cardiology Follow-up History of Present Illness: Mallika Castillo is a 79 y.o. female with history of HTN, hypothyroidism, osteoarthritis, anxiety disorder, chronic back pain, cataract surgery(left eye), and GERD. She presented to her PCP on 12/02/2018 for her annual Medicare Wellness exam where she stated to shortness ofbreath and dyspnea on exertion. She states to be not as active as previously due to chronic back pain resulting from worsening arthritis. She is s/p cardiac Cath on 10/26/2019 which showed no significant stenosis. She presents to the clinic today for her 2 month follow up. Currently states to feel POWERS and SOB. No active complaints of chest pain, palpitations, dizziness, or syncope. Allergies: Allergies Allergen Reactions Adhesive Tape 3m [...] drink a month/ rum & diet coke Family History: Family History Problem Relation Name Age of Onset CVA/Stroke Father Brandan Dela Cruz fatal High Blood Pressure Father Brandan Dela Cruz Ultimatle stroke Coronary Artery Disease Mother Marcelo Valdezlps Valve replacement Depression Mother Marcelo Valdezlps Shock treatments in the 50's Breast Cancer Other Lung Cancer Other Prostate Cancer Other Dementia Other Breast Cancer Sister Yenni Trivedi Dble. Masectomy-no chemo Depression Sister Yenni Trivedi not treated Depression Sister Roman Myers Medication Depression Sister Perla Pimentel not diagnosed Review of Systems: Constitutional: Negative. HENT: Negative. Eyes: Negative. Respiratory: Negative for shortness of breath. Cardiovascular: Negative Gastrointestinal: Negative for abdominal pain. Genitourinary: Negative. Musculoskeletal: Negative. Skin: Negative. Neurological: Negative. Endo/Heme/Allergies: Negative. Psychiatric/Behavioral: Negative. EXAMINATION BP 135/78 (BP Location: left arm, Patient Position: Sitting, Cuff Size: regular) | Pulse 95 | Resp16 | Ht 5' 6" (1.676 m) | Wt 190 lb (86.2 kg) | LMP 04/29/1977 Comment: SOB and swellen | SpO2 97% | BMI 30.67 kg/m General appearance: alert, cooperative, no distress, appears stated age Head: Normocephalic, without obvious abnormality, atraumatic Eyes: conjunctivae/corneas clear. PERRL, EOM's intact. Fundi benign Neck: supple, symmetrical, trachea midline, no adenopathy, thyroid: not enlarged, symmetric, no tenderness/mass/nodules, no carotid bruit and no JVD Lungs: clear to auscultation bilaterally Heart: regular rate and rhythm, S1, S2 normal Abdomen: Soft, non-tender. Bowel sounds normal. No masses, No organomegaly Extremities: extremities normal, atraumatic, no cyanosis or edema Pulses: 2+ and symmetric Skin: Skin color, texture, turgor normal. No rashes or lesions Neurologic: Patient is alert and oriented to person, place, and time Echocardiogram: Bike stress Echo 12/15/2018 SUMMARY: ++++++++++++++++++++++++++++++++++++ Bicycle [...] pressure by IVC dynamics 0-5 mm Hg. Stress Testing: PET rest and stress 01/19/2019 REST FINDINGS: [...] comparison. Signed: Scarlet Huerta MD Report Verified Date/Time: 01/19/2019 15:35:55 Reading Location: [address] Reading Room Cardiac Catheterization: Cardiac Cath 10/26/2019: Site A mmHg or Syst V mmHg Or Diast Mean mmHg O2 Sat % Comments SVC IVC RA 19 17 16 RV 37 11 18 PA 34 20 27 PAW 28 28 24 LA LV LVEF Ao 149 77 101 Cardiac Output Nisreen Thermo Comments Cardiac Output L/min 4.33 Cardiac Index L-m2/min 2.3 Qs Qp/Qs PVR SVR Findings: Left Main - Ok Anterior Descending - Normal Cicumflex/OM Branches - Normal Right Coronary - Normal ASSESSMENT/PLAN 1) Same medicines. 2) Referral to see Dr Moore for Diastolic Heart Failure. 3) Follow-up in 6 months. Mic Michaels, MSN, FIXED WING AIRCRAFT FLIGHT MECHANIC, CUTTER GRIND TOOL TECHNICIAN-C Nurse Practitioner/Instructor Office: Nurse Practitioner to Dr. Roger Cade MD Interventional Cardiology and Structural Heart Disease [facility] Supervising Physician Attestation: I, Roger Cade MD., have seen and examined the patient and discussed with Mic Michaels NP. I agree with the noted findings, examination, assessment and plan of care as documented in the note. I have also reviewed the medications, labs, and j2ee consultant notes. 1) Same medicines. 2) Referral to see Dr Moore for Diastolic Heart Failure. 3) Follow-up in 6 months. Roger Cade MD, [facility] ([phone]) Interventional Cardiology and Structural Heart Disease Cardiology Section, [facility] Director, Structural Heart Disease [facility], [facility] documented in this encounter Plan of Treatment Name Type Priority Associated Diagnoses Date/Ti me ELECTROCARDIOGRAM COMPLETE ECG Routine Essential hype rtension 02/02/2020 1:45 PM CDT Name Type Priority Associated Order Schedule Diagnoses AMB REF TO Outpatient Referral Routine SOB (shortness of Ord ered: CARDIOLOGY [facility] breath) 02/02/2020 Health Maintenance Due Date Last Done Comments TETANUS SHOT (ADULT) 11/21/1955 BMI FOLLOW UP PLAN 11/21/1957 ZOSTER VACCINE (1 of 2) 11/21/1989 PNEUMOVAX >=65 (PPSV23) 11/21/2004 FLU VACCINE > 6 MONTHS 11/28/2019 MEDICARE AWV (Subsequent) 12/03/2019 12/02/2018, 12/02/2018 , 11/18/2017, Additional history exists FALL SCREEN 06/01/2020 06/01/2019 OSTEOPOROSIS SCREENING Completed 03/07/2015, 02/04/2013, 0 11/02/2009 documented as of this encounter Procedures Procedure Name Priority Date/Time Associated Diagnosis Comme nts ELECTROCARDIOGRAM COMPLETE Routine 02/02/2020 1:45 PM Manjula johnson CDT hypertension documented in this encounter Results Not on filedocumented in this encounter Visit Diagnoses Diagnosis Essential hypertension - Primary Unspecified essential hypertension SOB (shortness of breath) Shortness of breath documented in this encounter Insurance Payer Benefit Plan / Subscriber ID Effective Dates Phone Addre ss Type Group MEDICARE MEDICARE PART A [id number] 2014-Prese [address] Medicare [place] [address] AETNA INDEMNITY/TRADIT [id number] 2014-Prese [address] Indemnity IONAL CHOICE - nt [place], [place] [employer] [address] (Work) [phone] documented as of this encounter Advance Directives For more information, please contact: [phone] Type Date Recorded Patient Account [employer] Explanati on Advance Directives and Living Will Power of Remote Inpatient Coder
--- OUTSIDE RECORDS SUMMARY | 2020-04-09 12:44 | XMS REPORT | Summary of Care ---
:1940 Author Organization [facility] [place] [address] Care Team Providers Name Role Phone Jasiel Fraire MD, Md Vip Jasiel Fraire MD Primary Care Provider Reason for Visit Reason Comments Back Pain Encounter Details Date Type Department Care Team Description 03/17/2020 Office Visit [facility] Casey Rosado Jr., Back Pain Physical Medicine & MD Rehabilitation [address] [place] [address] [address] 10[address] Floor, [place] [address] [place] [address] [phone] Allergies Active Allergy Reactions Severity Noted Date Comments Adhesive Tape 07/15/2008 3m adhesive ta pe only Sulfa Antibiotics 07/15/2008 documented as of this encounter (statuses as of 03/17/2020) Medications Medication Sig Dispensed Refills Start Date End Date Status PRILOSEC OTC 20 MG OR 1 po qd 0 08/12/2006 Active TBEC CENTRUM SILVER OR TABS 1 po qd 0 08/12/2006 Active cetirizine (ZYRTEC) 10 Take 10 mg by 0 Active MG tablet mouth daily. pramipexole (MIRAPEX) TAKE 1 TABLET BY 360 Tab 3 10/30/2018 Active 0.25 MG tablet MOUTH 4 TIMES A DAY venlafaxine (EFFEXOR-XR) TAKE 1 CAPSULE 90 Cap 3 09/07/2019 Active 75 MG XR capsule BY MOUTH EVERY DAY SYNTHROID 100 MCG tablet TAKE 1 TABLET BY 90 Tab 3 09/07/19 20 Active MOUTH EVERY DAY busPIRone (BUSPAR) 15 MG TAKE 1 TABLET BY 270 Tab 2 11/22/19 20 Active tablet MOUTH TWICE A DAY olmesartan (BENICAR) 20 TAKE 1 TABLET BY 90 Tab 3 0 Active MG tablet MOUTH EVERY DAY furosemide (LASIX) 20 MG Take 1 Tab by 90 Tab 3 02/18/2020 Active tabletIndications: SOB mouth daily. (shortness of breath), Chronic heart failure with preserved ejection fraction (HCCode) carisoprodol (SOMA) 350 1 tab 3-4 times 100 Tab 1 03/03/2020 Active MG tabletIndications: daily, prn Osteoarthritis of spine severe muscle with radiculopathy, spasm (Flexeril cervical region no longer works!) celecoxib (CELEBREX) 200 TAKE ONE CAPSULE 180 Cap 3 03/03/20 20 Active MG capsule BY MOUTH TWICE A DAY WITH MEALS mirtazapine (REMERON) 30 TAKE 1 TABLET BY 90 Tablet 3 03/15/20 20 Active MG tablet MOUTH AT BEDTIME hydrocodone-acetaminophe Take 1 Tablet by 40 Tablet 0 03/17/20 20 Active n (NORCO) 5-325 mg mouth every 6 tablet hours as needed for Pain. documented as of this encounter (statuses as of 03/17/2020) Active Problems Problem Noted Date Diastolic congestive [...] as of this encounter (statuses as of 03/17/2020) Resolved Problems Problem Noted Date Resolved Date Sinusitis 04/12/2008 02/04/2013 VAGINITIS, CANDIDAL 12/10/2007 02/04/2013 Vaginal discharge 11/05/2007 03/07/2015 Bleeding, postmenopausal 11/05/2007 03/07/2015 SCREENING MAMMOGRAM NEC 09/25/2007 03/07/2015 Weakness 08/12/2006 02/04/2013 HYPERLIPIDEMIA, MIXED, MILD 08/12/2006 02/04/2013 Urinary frequency 08/12/2006 02/04/2013 Chest pain 08/12/2006 02/04/2013 Anxiety disorder 02/04/2013 Depression 03/07/2015 Seasonal allergies 02/04/2013 documented as of this encounter (statuses as of 03/17/2020) Immunizations Name Administration Dates Next Due Tdap 08/01/2012 documented as of this encounter Social History Tobacco Use Types Packs/Day Years Used Date Never Smoker Smokeless Tobacco: Never Used Alcohol Use Drinks/Week oz/Week Comments Yes 0-1 Standard drinks or equivalent 0.0 - 1.0 Alcoholic Drinks/day: Socially 1 drink a month/ rum & diet coke Sex Assigned at Date Recorded Female 11/29/2019 11:24 AM CDT documented as of this encounter Last Filed Vital Signs Vital Sign Reading Time Taken Comments Blood Pressure 133/77 03/17/2020 10:22 AM RECREATION ACTIVITIES COORDINATOR Pulse 86 03/17/2020 10:22 AM RECREATION ACTIVITIES COORDINATOR Temperature 35.9 C (96.7 F) 03/17/2020 10:22 AM RECREATION ACTIVITIES COORDINATOR Respiratory Rate - - Oxygen Saturation - - Inhaled Oxygen Concentration - - Weight 88 kg (194 lb) 03/17/2020 10:22 AM RECREATION ACTIVITIES COORDINATOR Height 167.6 cm (5' 6") 03/17/2020 10:22 AM RECREATION ACTIVITIES COORDINATOR Body Mass Index 31.31 03/17/2020 10:22 AM RECREATION ACTIVITIES COORDINATOR documented in this encounter Progress Notes Casey Rosado Jr., MD - 03/17/2020 10:30 AM CST Chief Complaint Patient presents with Back Pain Mallika Lanie Grahamtes returns today with worsening lower back pain. Her pain is limiting function andshe cries at times due to her pain and reduced function Currently: Pain Location: Across the lower back Pain severity: 3/10 Pain made worse by: 7/10 when she stands and walks Associated symptoms/Red Flags: Legs feel weak at times She has tried aleve PM, heat Imaging studies: None on her neck recently C spine xrays in 2013 showed Impression: 1. Degenerative disc disease with minimal degenerative anterolisthesis of C3-C4, and mild anterior listhesis of C4-C5 and C5-C6. This is slightly more pronounced on the flexion image. 2. Uncovertebral and facet hypertrophy most severe at C7-T1. MRI Lumbar Spine w/o Contrast (06/06/16): -Unchanged prominent dextroscoliosis with apex at L3. -Again noted moderate degenerative spinal canal stenosis at L5-S1. -Persistent moderate to severe foraminal stenoses from L1-L2 through L5-S1 , due to degenerative changes and scoliosis. -Atrophic changes of the posterior paraspinallumbosacral musculature mainly on the right side from L4 to S1. Past Medical History: Diagnosis Date Anxiety disorder [...] LAMINECTOMY HX SPINE SURGERY 2004? lower lumbar PHYSICAL EXAM: Physical Exam BP 133/77 | Pulse 86 | Temp 96.7 F (35.9 C) | Ht 5' 6" (1.676 m) | Wt 194 lb (88 kg) | LMP 04/29/1977 Comment: SOB and swellen | BMI 31.31 kg/m General appearance: alert, well appearing, and in no distress. HEENT: normocephalic, atraumatic. Chest: no tachypnea, retractions or cyanosis. CVS exam: intact peripheral pulses lower extremities. Lower extremity edema: mild Abdominal exam: soft, nondistended. Skin exam - no rashes Neurological exam reveals alert, oriented, normal speech, no focal findings or movement disorder noted, DTR's normal and symmetric, motor and sensory grossly normal bilaterally. Back exam: antalgic gait, limited range of motion, tenderness noted over the lower bilateral paralumbar spine After reviewing pertinent past medical records, patient history and PE findings and correlating withavailable imaging studies and past treatments my assessment and plan is as follows: 1. Spondylosis of lumbar region without myelopathy or radiculopathy The pathophysiology of the current diagnosis was discussed with the patient. Other possible causes were reviewed. Multiple treatment options were discussed. All of the patient's questions were answered. 2. Scoliosis (and kyphoscoliosis), idiopathic MRI images of the lumbar spine were reviewed with the patient and shows multilevel spondylosis and scoliosis. No significant central canal stenosis. This MRI was from 2017 Consider repeat if no help with medications 3. Myofascial pain The pathophysiology of myofascial pain was discussed with the patient. Treatment options including medication, exercise, PT, patient care coordinator, relaxation, and injections were reviewed at length. Therisks and benefits of trigger point, intra-articular steroid injections and spinal injections were di scussed. Verbal instructions on spinal biomechanics and lifting techniques were given. Benefits ofregular exercise and activity were also reviewed with her. -Use of opiate medications for therapeutic purposes AWARE database reviewed 1) [place] 5mg prn (30) Soma as needed for muscle spasms from Dr. Fraire 2) Take medications as prescribed. 3) Do not share or sell your medications. Do not take medications not prescribed to you. 4) Call if you have any intolerable medication side effects. 5) Try and get daily exercise including walking. 6) Call if symptoms worsen. 7) If you feel out of control with the use of your medication or if you experience a change in behavior, you may be showing signs of addiction. Please contact our office if you have any worries or believe that you need help with addiction or substance abuse. 8) Lost or stolen prescriptions and/or medications will not be refilled early. 9) Cognitive Side effects of opiate medications include: Fatigue Dizziness Clouded mentation Decreased ability to concentrate Slowed motor performance Slowed reflexes Increased response time to stimuli Impaired coordination Use caution regarding these side effects and if any are present do not drive or operate heavy machinery. 10) The danger of mixing opiate medications with other sedating drugs like soma, benzodiazepines, slleep medications, alcohol and other opiates can lead to oversedation and accidental overdose. Do notmix medications. 11) Do not use any illegal substances. Constipation- Constipation is a common side effect of opiate medications. Opiates slow bowel motility. IF Constipation occurs, push fluids, use senna or senna with colace daily as directed. Maintain a high fiber diet with plenty of roughage, and 6-8 large glasses of water daily to avoid constipation inthe future. Timing elimination to occur after meals, or after a hot drink, can also improve the situation halfway. Call if symptoms do not improve, please call our office Casey Rosado Jr., MD documented in this encounter Plan of Treatment Date Type Specialty Care Team Description 03/28/2020 Procedure Visit-Tech Performed Pulmonology [place], [place] Pft- Pft Tech 03/28/2020 Procedure Visit-Tech Performed Pulmonology [place], [place] Pft- Pft Tech Health Maintenance Due Date Last Done Comments BMI FOLLOW UP PLAN 11/21/1957 ZOSTER VACCINE (1 of 2) 11/21/1989 PNEUMOVAX >=65 (PPSV23) 11/21/2004 FALL SCREEN 03/03/2021 03/17/2020 MEDICARE AWV (Subsequent) 03/03/2021 03/03/2020, 03/03/2020 , 12/02/2018, Additional history exists TETANUS SHOT (ADULT) 08/01/2022 08/01/2012 OSTEOPOROSIS SCREENING Completed 03/07/2015, 02/04/2013, 11/02/2009 FLU VACCINE > 6 MONTHS Discontinued HPV VACCINE Aged Out No longer eligib le based on patient 's age to complete this topic documented as of this encounter Results Not on filedocumented in this encounter Visit Diagnoses Diagnosis Spondylosis of lumbar region without mye lopathy or radiculopathy - Primary Lumbosacral spondylosis without myelopat hy Scoliosis (and kyphoscoliosis), idiopath ic Myofascial pain Mylagia and myositis, unspecified documented in this encounter Insurance Payer Benefit Plan / Subscriber ID Effective Dates Phone Addre ss Type Group MEDICARE MEDICARE PART A [id number] 2014-Prese [address] Medicare [place] [address] AETNA INDEMNITY/TRADIT [id number] 2014-Prese [address] Indemnity IONAL CHOICE - nt [place], [place] [employer] [address] documented as of this encounter Advance Directives For more information, please contact: [phone] Type Date Recorded Patient Division Toll Wire Chief Explanati on Advance Directives and Living Will Power of Cloth Layer
[2020-04-09 13:34] LABS: Arterial Blood Carboxyhemoglob 0.9 % (0-1.5); Blood Gas Oxyhemoglobin 90.9 % (94-97); Blood O2 Saturation 93.3 % (92-98.5)
--- NOTE | 2020-04-09 14:03 | ER ---
Nurse's Notes [facility] Name: Mallika Castillo Age: 79 yrs Sex: Female : 1940 Arrival Date: 04/09/2020 Time: 12:41 Bed 7 Private MD: Diagnosis: Dyspnea;Hypoxemia;Other viral pneumonia-milateral covid pna, multifocal;Acute kidney failure-on chronic Presentation: 04/09 12:35 Chief complaint: EMS states: Pt. is A \T\ O x 4, c/o shortness of breath. Has been COVID rb3 positive for the past 10 days. BP 107/60, P 88, T 98.4, was 93% on RA, EMS administered 3 L NC and she was 98%. Has an allergy to Sulfa. History of arthritis, hypertension, and depression. Coronavirus screen: Client presents with at least one sign or symptom that may indicate coronavirus-19. Standard/surgical mask placed on the client. Provider contacted for isolation considerations. Client reports previous positive COVID test result. Date of collection: April 08, 2020 Pt. was positive 10 days ago, went yesterday and retested and still had positive results. Ebola Screen: Patient denies travel to an Ebola-affected area in the 21 days before illness onset. Initial Sepsis Screen: Does the patient meet any 2 criteria? No. Patient's initial sepsis screen is negative. Does the patient have a suspected source of infection? Yes: Productive cough/pneumonia. Risk Assessment: Do you want to hurt yourself or someone else? Patient reports no desire to harm self or others. Onset of symptoms was March 30, 2020. 12:35 Method Of Arrival: EMS: [facility] rb3 12:35 Acuity: MITALI 3 rb3 Triage Assessment: 12:35 General: Appears in no apparent distress. comfortable, Behavior is calm, cooperative. rb3 Pain: Denies pain. Neuro: Level of Consciousness is awake, alert, obeys commands, Oriented to person, place, time, situation. Cardiovascular: Capillary refill < 3 seconds. Respiratory: Reports shortness of breath at rest cough that is non-productive, Onset: The symptoms/episode began/occurred x 10 days ago, the patient has mild shortness of breath. GI: No signs and/or symptoms were reported involving the gastrointestinal system. : No signs and/or symptoms were reported regarding the genitourinary system. Derm: Skin is pink, warm \T\ dry. Historical: - Allergies: 12:35 Sulfa (Sulfonamide Antibiotics); rb3 - Home Meds: 12:35 venlafaxine 75 mg oral cp24 1 cap once daily [Active]; Prilosec Oral [Active]; rb3 Synthroid 100 mcg Oral tab 1 tab once daily [Active]; mirtazapine 30 mg Oral tab 1 tab once daily [Active]; olmesartan oral 20 mg oral 1 tab once daily [Active]; carisoprodol 350 mg Oral tab 1 tab 3 times per day [Active]; hydrocodone-acetaminophen 5-325 mg Oral tab 1 tab every 6 hours [Active]; buspirone 15 mg Oral tab 1 tab 2 times per day [Active]; Tumeric [Active]; Zyrtec Oral [Active]; - PMHx: 12:35 Anxiety; Arthritis; Depression; Hypertension; Hypothyroidism; restless leg syndrome; rb3 - PSHx: 12:35 Hysterectomy; Carpal Tunnel Repair; rb3 - Immunization history:: Adult Immunizations up to date. - Social history:: Smoking status: Patient/guardian denies using. - Family history:: not pertinent. Screenin:35 Abuse screen: Denies threats or abuse. Nutritional screening: No deficits noted. rb3 Tuberculosis screening: No symptoms or risk factors identified. Fall Risk None identified. Assessment: 12:35 General: see triage assessment. rb3 12:35 Respiratory: Airway is patent Respiratory effort is even, unlabored, Breath sounds are rb3 diminished. 12:35 Cardiovascular: Rhythm is regular. rb3 13:30 Reassessment: Patient appears in no apparent distress at this time. Patient and/or rb3 family updated on plan of care and expected duration. Pain level reassessed. Patient is alert, oriented x 3, equal unlabored respirations, skin warm/dry/pink. Patient denies pain at this time. 14:27 Reassessment: Patient appears in no apparent distress at this time. No changes from rb3 previously documented assessment. 15:22 Reassessment: Patient appears in no apparent distress at this time. Patient and/or rb3 family updated on plan of care and expected duration. Pain level reassessed. Patient is alert, oriented x 3, equal unlabored respirations, skin warm/dry/pink. Patient denies pain at this time. 16:21 Reassessment: Patient appears in no apparent distress at this time. No changes from rb3 previously documented assessment. pt. is playing on her telephone. Vital Signs: 12:35 BP 106 / 65; Pulse 87; Resp 20; Temp 98.3; Pulse Ox 99% ; Weight 77.11 kg; Height 5 ft. rb3 6 in. (167.64 cm); Pain 0/10; 13:30 BP 117 / 75; Pulse 88; Resp 20; Pulse Ox 95% ; rb3 14:30 BP 127 / 67; Pulse 87; Resp 20; Pulse Ox 99% ; rb3 15:30 BP 104 / 64; Pulse 88; Resp 18; Pulse Ox 100% ; rb3 16:30 BP 116 / 66; Pulse 94; Resp 19; Pulse Ox 95% on R/A; rb3 12:35 Body Mass Index 27.44 (77.11 kg, 167.64 cm) rb3 ED Course: 12:35 Arm band placed on right wrist. rb3 12:35 Patient has correct armband on for positive identification. Bed in low position. Call rb3 light in reach. Side rails up X 1. Pulse ox on. NIBP on. Warm blanket given. 12:41 Patient arrived in ED. em1 12:51 Gino Rosales MD is Attending Physician. heather 13:03 Britney De La Garza, RN is Primary Nurse. rb3 13:10 Triage completed. rb3 13:36 XRAY Chest (1 view) In Process Unspecified. EDMS 13:45 Inserted saline lock: 20 gauge in right forearm, using aseptic technique. Blood bp collected. 14:02 Jackson Stevens DO is Hospitalizing Provider. heather 19:15 Patient admitted, IV remains in place. lp1 Administered Medications: 14:00 Drug: NS 0.9% 1000 ml Route: IV; Rate: 75 ml/hr; Site: right antecubital; bp 14:25 Drug: Rocephin 1 grams Route: IV; Rate: per protocol; Site: right forearm; rb3 14:40 Follow up: IV Status: Completed infusion rb3 14:25 Drug: Pepcid 20 mg Route: IVP; Site: right forearm; rb3 16:39 Follow up: Response: No adverse reaction rb3 14:25 Drug: Decadron - Dexamethasone 10 mg Route: IVP; Site: right forearm; rb3 14:40 Follow up: Response: No adverse reaction rb3 14:25 Drug: Lovenox 1 mg/kg Route: Sub-Q; Site: right lower abdomen; rb3 14:40 Follow up: Response: No adverse reaction rb3 14:25 Drug: Aspirin 81 mg Route: PO; rb3 14:55 Follow up: Response: No adverse reaction rb3 15:00 Drug: Zithromax 500 mg Route: IVPB; Infused Over: 1 hrs; Site: right antecubital; bp 16:40 Follow up: Response: No adverse reaction; IV Status: Completed infusion rb3 Outcome: 14:03 Decision to Hospitalize by Provider. heather 19:15 Admitted to ER Hold. Please see [facility] for further documentation. lp1 19:15 Condition: stable 19:15 Instructed on the need for admit. 04/10 00:04 Patient left the ED. lp1 Signatures: Dispatcher [employer] EDGino Vences MD MD cha Martinez, Eric em1 Lary Queen, RN RN lp1 Marin Brooks, RN RN Britney Arthur, RN RN rb3
--- NOTE | 2020-04-09 14:03 | EDPHYS ---
Physician Documentation [facility] Name: Mallika Castillo Age: 79 yrs Sex: Female : 1940 Arrival Date: 04/09/2020 Time: 12:41 Bed 7 Private MD: ED Physician Gino Rosales HPI: 04/09 13:10 This 79 yrs old Female presents to ER via EMS with complaints of Shortness Of heather Breath, COVID POSITIVE.. 13:10 The patient has shortness of breath at rest, with light activity. Onset: The heather symptoms/episode began/occurred this morning. Duration: The symptoms are continuous, and are unchanged since they started. The patient's shortness of breath has no apparent modifying factors. Associated signs and symptoms: The patient has no apparent associated signs or symptoms. Severity of symptoms: At their worst the symptoms were mild in the emergency department the symptoms are unchanged. The patient has not experienced similar symptoms in the past. Historical: - Allergies: 12:35 Sulfa (Sulfonamide Antibiotics); rb3 - Home Meds: 12:35 venlafaxine 75 mg oral cp24 1 cap once daily [Active]; Prilosec Oral [Active]; rb3 Synthroid 100 mcg Oral tab 1 tab once daily [Active]; mirtazapine 30 mg Oral tab 1 tab once daily [Active]; olmesartan oral 20 mg oral 1 tab once daily [Active]; carisoprodol 350 mg Oral tab 1 tab 3 times per day [Active]; hydrocodone-acetaminophen 5-325 mg Oral tab 1 tab every 6 hours [Active]; buspirone 15 mg Oral tab 1 tab 2 times per day [Active]; Tumeric [Active]; Zyrtec Oral [Active]; - PMHx: 12:35 Anxiety; Arthritis; Depression; Hypertension; Hypothyroidism; restless leg syndrome; rb3 - PSHx: 12:35 Hysterectomy; Carpal Tunnel Repair; rb3 - Immunization history:: Adult Immunizations up to date. - Social history:: Smoking status: Patient/guardian denies using. - Family history:: not pertinent. ROS: 13:12 Constitutional: Negative for fever, chills, and weight loss, Eyes: Negative for injury, heather pain, redness, and discharge, ENT: Negative for injury, pain, and discharge, Neck: Negative for injury, pain, and swelling, Cardiovascular: Negative for chest pain, palpitations, and edema, Abdomen/GI: Negative for abdominal pain, nausea, vomiting, diarrhea, and constipation, Back: Negative for injury and pain, : Negative for injury, bleeding, discharge, and swelling, MS/Extremity: Negative for injury and deformity, Skin: Negative for injury, rash, and discoloration, Neuro: Negative for headache, weakness, numbness, tingling, and seizure, Psych: Negative for depression, anxiety, suicide ideation, homicidal ideation, and hallucinations, Allergy/Immunology: Negative for hives, rash, and allergies, Endocrine: Negative for neck swelling, polydipsia, polyuria, polyphagia, and marked weight changes, Hematologic/Lymphatic: Negative for swollen nodes, abnormal bleeding, and unusual bruising. 13:12 Respiratory: Positive for cough, shortness of breath, at rest. Exam: 13:12 Constitutional: This is a well developed, well nourished patient who is awake, alert, heather and in no acute distress. Head/Face: Normocephalic, atraumatic. Eyes: Pupils equal round and reactive to light, extra-ocular motions intact. Lids and lashes normal. Conjunctiva and sclera are non-icteric and not injected. Cornea within normal limits. Periorbital areas with no swelling, redness, or edema. ENT: Nares patent. No nasal discharge, no septal abnormalities noted. Tympanic membranes are normal and external auditory canals are clear. Oropharynx with no redness, swelling, or masses, exudates, or evidence of obstruction, uvula midline. Mucous membranes moist. Neck: Trachea midline, no thyromegaly or masses palpated, and no cervical lymphadenopathy. Supple, full range of motion without nuchal rigidity, or vertebral point tenderness. No Meningismus. Chest/axilla: Normal chest wall appearance and motion. Nontender with no deformity. No lesions are appreciated. Cardiovascular: Regular rate and rhythm with a normal S1 and S2. No gallops, murmurs, or rubs. Normal PMI, no JVD. No pulse deficits. Respiratory: Lungs have equal breath sounds bilaterally, clear to auscultation and percussion. No rales, rhonchi or wheezes noted. No increased work of breathing, no retractions or nasal flaring. Abdomen/GI: Soft, non-tender, with normal bowel sounds. No distension or tympany. No guarding or rebound. No evidence of tenderness throughout. Back: No spinal tenderness. No costovertebral tenderness. Full range of motion. Female : Normal external genitalia. Skin: Warm, dry with normal turgor. Normal color with no rashes, no lesions, and no evidence of cellulitis. MS/ Extremity: Pulses equal, no cyanosis. Neurovascular intact. Full, normal range of motion. Neuro: Awake and alert, GCS 15, oriented to person, place, time, and situation. Cranial nerves II-XII grossly intact. Motor strength 5/5 in all extremities. Sensory grossly intact. Cerebellar exam normal. Normal gait. Psych: Awake, alert, with orientation to person, place and time. Behavior, mood, and affect are within normal limits. Vital Signs: 12:35 BP 106 / 65; Pulse 87; Resp 20; Temp 98.3; Pulse Ox 99% ; Weight 77.11 kg; Height 5 ft. rb3 6 in. (167.64 cm); Pain 0/10; 13:30 BP 117 / 75; Pulse 88; Resp 20; Pulse Ox 95% ; rb3 14:30 BP 127 / 67; Pulse 87; Resp 20; Pulse Ox 99% ; rb3 15:30 BP 104 / 64; Pulse 88; Resp 18; Pulse Ox 100% ; rb3 16:30 BP 116 / 66; Pulse 94; Resp 19; Pulse Ox 95% on R/A; rb3 12:35 Body Mass Index 27.44 (77.11 kg, 167.64 cm) rb3 MDM: 12:51 Patient medically screened. heather 13:13 Differential diagnosis: Anemia asthma, Bronchitis CHF exacerbation, Chronic Obstructive heather Pulmonary Disease pneumonia, pulmonary edema, Pulmonary Embolism reactive airway disease, Unstable Angina. Antibiotic administration: Not indicated. The patient's Wells Deep Vein Thrombosis Score was calculated as follows: Total Score: 0-2 Pts- Low Risk. The patient's pulmonary embolism risk score was calculated as follows: Total Score: 0-2 points. This patient was found to be at low risk for a pulmonary embolism by using the Well's assessment criteria. Immunization status: Pneumococcal vaccine: Influenza vaccine: Data reviewed: vital signs, nurses notes, lab test result(s), EKG, radiologic studies, CT scan, plain films. Data interpreted: property assessment monitor: rate is 87 beats/min, rhythm is normal sinus rhythm. Test interpretation: by ED physician or midlevel provider: ECG, plain radiologic studies. 04/09 13:08 Order name: Basic Metabolic Panel; Complete Time: 14:55 [facility] 04/09 13:08 Order name: CBC with Diff; Complete Time: 14:55 [facility] 04/09 13:08 Order name: LFT's; Complete Time: 14:55 [facility] 04/09 13:08 Order name: Magnesium; Complete Time: 14:55 [facility] 04/09 13:08 Order name: NT PRO-BNP; Complete Time: 14:55 [facility] 04/09 13:08 Order name: PT-INR; Complete Time: 14:55 [facility] 04/09 13:08 Order name: Troponin (emerg Dept Use Only); Complete Time: 14:55 [facility] 04/09 13:09 Order name: ABG: room air; Complete Time: 14:01 [facility] 04/09 13:15 Order name: Blood Culture Adult (2) [facility] 04/09 13:15 Order name: Blood Culture [facility] 04/09 14:09 Order name: Ferritin; Complete Time: 16:25 [facility] 04/09 14:09 Order name: CRP; Complete Time: 16:25 [facility] 04/09 22:57 Order name: CORONAVIRUS [facility] 04/09 23:52 Order name: SARS-COV-2 RT PCR [facility] 04/09 13:09 Order name: XRAY Chest (1 view); Complete Time: 16:25 [facility] 04/09 13:09 Order name: EKG; Complete Time: 13:09 [facility] 04/09 13:09 Order name: Cardiac monitoring; Complete Time: 15:51 [facility] 04/09 13:09 Order name: EKG - Nurse/Tech; Complete Time: 15:51 [facility] 04/09 13:09 Order name: IV Saline Lock; Complete Time: 14:09 [facility] 04/09 13:09 Order name: Labs collected and sent; Complete Time: 14:09 [facility] 04/09 13:09 Order name: O2 Per Protocol; Complete Time: 14:09 [facility] 04/09 14:55 Order name: Thorax Wo Con; Complete Time: 16:25 [facility] 04/09 13:09 Order name: O2 Sat Monitoring; Complete Time: 14:09 [facility] Administered Medications: 14:00 Drug: NS 0.9% 1000 ml Route: IV; Rate: 75 ml/hr; Site: right antecubital; bp 14:25 Drug: Rocephin 1 grams Route: IV; Rate: per protocol; Site: right forearm; rb3 14:40 Follow up: IV Status: Completed infusion rb3 14:25 Drug: Pepcid 20 mg Route: IVP; Site: right forearm; rb3 16:39 Follow up: Response: No adverse reaction rb3 14:25 Drug: Decadron - Dexamethasone 10 mg Route: IVP; Site: right forearm; rb3 14:40 Follow up: Response: No adverse reaction rb3 14:25 Drug: Lovenox 1 mg/kg Route: Sub-Q; Site: right lower abdomen; rb3 14:40 Follow up: Response: No adverse reaction rb3 14:25 Drug: Aspirin 81 mg Route: PO; rb3 14:55 Follow up: Response: No adverse reaction rb3 15:00 Drug: Zithromax 500 mg Route: IVPB; Infused Over: 1 hrs; Site: right antecubital; bp 16:40 Follow up: Response: No adverse reaction; IV Status: Completed infusion rb3 Disposition: 04/09/20 14:03 Hospitalization ordered by Jackson Stevens for Inpatient Admission. Preliminary diagnosis are Dyspnea, Hypoxemia, Other viral pneumonia - milateral covid pna, multifocal, Acute kidney failure - on chronic. - Bed requested for Intensive Care Unit. - Status is Inpatient Admission. lp1 - Condition is Fair. - Problem is new. - Symptoms have improved. Signatures: Dispatcher [employer] EDNE Tracey Matthew RN RN kl Anderson, Corey, MD MD cha Pena, Laura RN RN lp1 Marin Brooks, RN RN Britney Arthur, RN RN rb3 Corrections: (The following items were deleted from the chart) 14:55 13:09 Chest For PE Angio+CT.RAD.BRZ ordered. EDNE EDNE 16:26 14:03 Hospitalization Ordered by Jackson Stevens DO for Inpatient Admission. Preliminary heather diagnosis is Dyspnea; Hypoxemia; Other viral pneumonia - milateral covid pna, multifocal. Bed requested for Telemetry/MedSurg (Inpatient). Status is Inpatient Admission. Condition is Fair. Problem is new. Symptoms have improved. heather 21:38 16:26 04/09/2020 14:03 Hospitalization Ordered by Jackson Stevens DO for Inpatient kl Admission. Preliminary diagnosis is Dyspnea; Hypoxemia; Other viral pneumonia - milateral covid pna, multifocal; Acute kidney failure - on chronic. Bed requested for Telemetry/MedSurg (Inpatient). Status is Inpatient Admission. Condition is Fair. Problem is new. Symptoms have improved. heather 04/10 00:04 04/09 21:38 04/09/2020 14:03 Hospitalization Ordered by Jackson Stevens DO for Inpatient lp1 Admission. Preliminary diagnosis is Dyspnea; Hypoxemia; Other viral pneumonia - milateral covid pna, multifocal; Acute kidney failure - on chronic. Bed requested for Intensive Care Unit. Status is Inpatient Admission. Condition is Fair. Problem is new. Symptoms have improved. kl
[2020-04-09] MEDS ORDERED: ENOXAPARIN 80 MG/0.8 ML SQ ONE (14:25)
[2020-04-09] MEDS ORDERED: dexAMETHasone 10 MG/ML VIAL ONE (14:25)
[2020-04-09] MEDS ORDERED: ASPIRIN 81 MG CHEWABLE TABLET ONE (14:25)
[2020-04-09] MEDS ORDERED: FAMOTIDINE 20 MG/2 ML VIAL IV ONE (14:25)
[2020-04-09] MEDS ORDERED: NA CHLORIDE 0.9% 1,000 ML ONE (14:26)
[2020-04-09] MEDS ORDERED: CEFTRIAXONE/SWI 1gm 1 GM/10 ML SYR ONE (14:26)
[2020-04-09 14:27] LABS: Absolute Lymphocytes (CBC) 1.3 K/uL (0.7-4.9); Basophils % 0.3 % (0-1.3); Hematocrit 33.4 % (36.0-45.0); Lymphocytes % 21.3 % (15.3-44.8); MPV 8.4 fL (7.6-11.3); RBC Red Blood Cell Count 3.59 M/uL (3.86-4.86)
[2020-04-09 14:33] LABS: Protime INR 1.02
[2020-04-09 14:52] LABS: ALT/SGPT 46 U/L (12-78); AST/SGOT 90 U/L (15-37); Albumin 3.1 g/dL (3.4-5.0); Alkaline Phosphatase 75 U/L (45-117); BUN Blood Urea Nitrogen 47 mg/dL (7-18); Bicarbonate 24 mmol/L (21-32); Bilirubin Direct < 0.1 mg/dL (0-0.2); Bilirubin Total 0.4 mg/dL (0.2-1.0); Glucose Level 84 mg/dL (74-106); Magnesium 2.1 mg/dL (1.8-2.4); NT PRO-BNP 79 pg/mL (<450); Potassium 4.7 mmol/L (3.5-5.1); Protein, Total 7.4 g/dL (6.4-8.2); Sodium Level 139 mmol/L (136-145); Troponin (Emerg Dept Use Only) < 0.02 ng/mL (0.0-0.045)
[2020-04-09] MEDS ORDERED: AZITHROMYCIN IV 500 MG in NA CHLORIDE 0.9% 250 ML IVPB ONE (15:00)
[2020-04-09 15:09] LABS: Ferritin 564.5 ng/mL (8-388)
--- NOTE | 2020-04-09 15:16 | P.HP ---
Certification for Inpatient Patient admitted to: Observation With expected LOS: <2 Midnights Patient will require the following post-hospital care: Home Health Services Practitioner: I am a practitioner with admitting privileges, knowledge of patient current condition, hospital course, and medical plan of care. Services: Services provided to patient in accordance with Admission requirements found in Title 42 Section 412.3 of the Code of Federal Regulations Patient History Date of Service: 04/09/20 Primary Care Provider: Dr. Parker Reason for admission: Dyspnea, COVID Positive History of Present Illness: 79-year-old female with history of depression with anxiety, hypothyroidism, and GERD. Patient reports being diagnosis with COVID 19 since March 31. She had gone to urgent care recently to get evaluated. She was sent home. During this time. Her also developed COVID 19. Although her was hospitalized for this. Since he has been gone she has had decreased appetite. She has not been taking good oral intake. The shortness of breath has persisted and gotten worse. She reports a mild cough. No significant fever, chills. She came to the ER for further evaluation. In the ER patient evaluated. Patient slightly tachypneic upon arrival. Chest x-ray shows evidence of bilateral infiltrates. White count 6.1, hemoglobin 11.5. Sodium 139, potassium 4.7. BUN of 47, creatinine 1.68 with a GFR 29. Glucose 84. Prior GFR around 45. Patient given IV steroids. Patient admitted for further evaluation and treatment. Allergies hydrocodone [Hydrocodone] Allergy (Intermediate, Verified 08/20/12 19:27) Itching Sulfa (Sulfonamide Antibiotics) [Sulfa(Sulfonamide Antibiotics)] Allergy (Mild, Verified 06/17/11 12:20) Hives Hydroc Allergy (Uncoded 12/21/16 10:58) Unknown Home medications list reviewed: Yes Home Medications: ALPRAZolam [Xanax*] 0.25 mg PO BEDTIME PRN PRN #20 tab 01/11/17 Codeine/APAP [Tylenol W/Codeine #3 tab] 1 tab PO Q6HP PRN #10 tab 01/11/17 Methylprednisolone [Medrol dosepack] 4 mg PO DIRECTED #1 palak 01/11/17 Minocycline HCl 100 mg PO BID #14 capsule 01/11/17 - Past Medical/Surgical History Diabetic: No -: Depression with anxiety -: Hypothyroidism -: GERD -: Chronic pain -: Carpal tunnel -: Restless leg syndrome -: Hysterectomy -: Bilat carpal tunnel repair -: Payam peng Psychosocial/ Personal History: Patient is - Family History Mother -: Heart disease Father -: Stroke Sister -: Cancer Notes: Cancer of the uterine, breast, and under the tongue - Social History Smoking Status: Never smoker Alcohol use: Yes CD- Drugs: No Caffeine use: No Place of Residence: Home Review of Systems General: Weakness, Malaise, As per HPI Eyes: Unremarkable ENT: Nose Congestion, As per HPI Respiratory: Cough, Shortness of Breath, SOB with Excertion, As per HPI Cardiovascular: Unremarkable Gastrointestinal: Unremarkable Genitourinary: Unremarkable Musculoskeletal: Unremarkable Integumentary: Unremarkable Neurological: Unremarkable Lymphatics: Unremarkable Physical Examination - Physical Exam General: Alert, In no apparent distress, Oriented x3, Cooperative HEENT: Atraumatic, PERRLA, Other (Dry mucous membranes) Neck: Supple Respiratory: Other (Patient requiring oxygen. Some tachypnea noted) Cardiovascular: Normal pulses, Regular rate/rhythm Gastrointestinal: No tenderness, No masses, No rebound, No guarding Musculoskeletal: No erythema, No tenderness, No warmth Integumentary: Other (Dry skin noted throughout) Neurological: Normal speech, Normal strength at 5/5 x4 extr, Normal tone, Normal affect - Studies Laboratory Data (last 24 hrs) 04/09/20 13:50: PT 12.0, INR 1.02 04/09/20 13:50: WBC 6.1, Hgb 11.5 L, Hct 33.4 L, Plt Count 170 04/09/20 13:50: Sodium 139, Potassium 4.7, BUN 47 H, Creatinine 1.68 H, Glucose 84, Magnesium 2.1, Total Bilirubin 0.4, AST 90 H, ALT 46, Alkaline Phosphatase 75 Assessment and Plan - Plan Impression: Dyspnea secondary to bilateral COVID 19 pneumonia Acute renal insufficiency secondary to dehydration Depression with anxiety Hypothyroidism Chronic pain GERD Plan: Dyspnea secondary to bilateral COVID 19 pneumonia: Patient will be admitted for further evaluation and treatment. Will obtain records from urgent care to get the COVID test that was performed recently. Patient will be treated with IV steroids. Will place on aspirin and DVT prophylaxis-Heparin. Continue with supplementation including zinc, vitamin-D, vitamin-D and thiamine. The patient appears dehydrated. Will provide IV fluids for now up to 1 L. will maintain oxygen above 93%. Patient will likely require home oxygen at discharge. Will check see the patient qualifies. Will continue to monitor and reassess. Will consult pulmonology to further evaluate. Advanced care planning address in detail-30 min. Patient full code. Patient would benefit with home health and physical therapy at discharge with oxygen in place. Anticipate improvement over the next 24-48 hr with possible discharge at that time Acute renal insufficiency secondary to dehydration: Patient appears dehydrated. Encourage oral intake. Will provide IV fluids up to 1 L. Depression with anxiety: Restart home medication of mirtazapine, buspirone, and Effexor Hypothyroidism: Restart home medication Chronic pain: Will provide medication if needed GERD: Will continue with medication Discharge Plan: Home Plan to discharge in: 24 Hours - Advance Directives Does patient have a Living Will: No Does patient have a Durable POA for Healthcare: No - Code Status/Comfort Care Code Status Assessed: Yes (Patient is full code) Time Spent Managing Pts Care (In Minutes): 55
--- NOTE | 2020-04-09 15:16 | RAD REPORT ---
EXAM DESCRIPTION: Edwin Single View04/09/2020 1:35 pm CLINICAL HISTORY: Cough COMPARISON: 2017 FINDINGS: [id number] bilateral pulmonary opacities The heart is normal size IMPRESSION: Mild to moderate bilateral pulmonary opacities likely pneumonia
--- NOTE | 2020-04-09 15:21 | RAD REPORT ---
EXAM DESCRIPTION: CT - Thorax Wo Con - 04/09/2020 3:07 pm CLINICAL HISTORY: sob COMPARISON: April 09 chest x-ray TECHNIQUE: Computed axial tomography of the chest was obtained. Contrast was not requested. All CT scans are performed using dose optimization technique as appropriate and may include automated exposure control or mA/KV adjustment according to patient size. FINDINGS: The evaluation of mediastinum, nelson and vessels is limited secondary to lack of IV contras t administration. Moderate bilateral patchy ground-glass opacities within the lungs. Calcified granuloma right lung Calcified mediastinal and calcified hilar lymph nodes. Small hiatal hernia A pleural effusion is not present. No pericardial effusion. Coronary arterial calcifications IMPRESSION: Moderate bilateral patchy ground-glass opacities within the lungs may indicate Covid pne umonia
[2020-04-09] MEDS ORDERED: NA CHLORIDE 0.9% 1,000 ML IV SCH (17:22)
[2020-04-09] MEDS ORDERED: ACETAMINOPHEN 500 MG TAB PO PRN (17:22)
[2020-04-09] MEDS ORDERED: BENZONATATE 100 MG CAP PO PRN (17:22)
[2020-04-09] MEDS ORDERED: ONDANSETRON 4 MG/2 ML VIAL IV PRN (17:22)
[2020-04-09] MEDS ORDERED: MIRTAZAPINE 15 MG TAB PO PRN (17:22)
[2020-04-09] MEDS ORDERED: ALBUTEROL INHALER 60 PUFF/8 GM IH PRN (17:22)
[2020-04-09 17:25] VITALS: BMI 27.4
[2020-04-09] MEDS ORDERED: ASCORBIC ACID 500 MG TABLET ONE (19:43)
[2020-04-09] MEDS ORDERED: ZINC SULFATE 220 MG CAP ONE (19:43)
[2020-04-09] MEDS ORDERED: HEPARIN 5000 UNIT/ML 1 ML VIAL ONE (19:43)
[2020-04-09] MEDS ORDERED: METHYLPREDNISOLONE 40 MG INJ ONE (19:44)
[2020-04-09] MEDS ORDERED: BUSPIRONE HCL 5 MG TABLET ONE (20:07)
[2020-04-09] MEDS: HEPARIN 5000 UNIT/ML 1 ML VIAL SQ SCH (20:29)
[2020-04-09] MEDS: ASCORBIC ACID 500 MG TABLET PO SCH (21:00)
[2020-04-09] MEDS: BUSPIRONE HCL 5 MG TABLET PO SCH (21:00)
[2020-04-09] MEDS: ZINC SULFATE 220 MG CAP PO SCH (21:00)
[2020-04-09] MEDS: METHYLPREDNISOLONE 125 MG INJ IV SCH (21:00)
[2020-04-10 04:25] VITALS: O2SAT 96
[2020-04-10 06:12] LABS: Urine Appearance CLEAR; Urine Bilirubin NEGATIVE (NEG); Urine Blood NEGATIVE (NEG); Urine Color YELLOW; Urine Glucose NEGATIVE (NEG); Urine Protein NEGATIVE (NEG)
[2020-04-10 06:12] LABS: Absolute Lymphocytes (CBC) 0.8 K/uL (0.7-4.9); Basophils % 0.1 % (0-1.3); Hematocrit 32.3 % (36.0-45.0); Lymphocytes % 23.8 % (15.3-44.8); MPV 8.4 fL (7.6-11.3); RBC Red Blood Cell Count 3.45 M/uL (3.86-4.86)
[2020-04-10 06:15] LABS: Urine Microscopic Reflex NO UMIC
[2020-04-10 06:27] LABS: Magnesium 2.2 mg/dL (1.8-2.4); Potassium 4.5 mmol/L (3.5-5.1)
[2020-04-10] MEDS ORDERED: LEVOTHYROXINE SOD 0.1 MG TAB PO SCH (06:30)
[2020-04-10] MEDS ORDERED: PANTOPRAZOLE 40MG TABLET PO SCH (06:30)
[2020-04-10] MEDS ORDERED: NA CHLORIDE 0.9% 1,000 ML IV SCH (07:00)
[2020-04-10] MEDS: ENSURE HIGH PROTEIN 237 ML CAN PO SCH ×3 (09:00→17:00)
[2020-04-10] MEDS ORDERED: THIAMINE HCL 100 MG TABLET PO SCH (09:00)
[2020-04-10] MEDS ORDERED: VITAMIN D 1000 UNIT TAB PO SCH (09:00)
[2020-04-10] MEDS: ASCORBIC ACID 500 MG TABLET PO SCH ×2 (09:00→14:24)
[2020-04-10] MEDS ORDERED: VENLAFAXINE HCL XR 75 MG CAP PO SCH (09:00)
[2020-04-10] MEDS ORDERED: ASPIRIN 81 MG CHEWABLE TABLET PO SCH (09:00)
[2020-04-10 09:01] VITALS: TEMP 97.2
[2020-04-10] MEDS: BUSPIRONE HCL 5 MG TABLET PO SCH (09:38)
[2020-04-10] MEDS: ZINC SULFATE 220 MG CAP PO SCH (09:38)
[2020-04-10] MEDS: HEPARIN 5000 UNIT/ML 1 ML VIAL SQ SCH (09:38)
[2020-04-10] MEDS: METHYLPREDNISOLONE 125 MG INJ IV SCH ×2 (09:39→14:23)
--- NOTE | 2020-04-10 10:03 | P.PN ---
Subjective Date of Service: 04/10/20 Primary Care Provider: Dr. Parker Chief Complaint: Dyspnea, COVID Positive Subjective: Improving (Patient feels better) Physical Examination - Vital Signs Temperature: 97.2 F Blood Pressure: 126/68 Pulse: 84 Respirations: 16 Pulse Ox (%): 92 - Physical Exam General: Alert, In no apparent distress, Oriented x3, Cooperative HEENT: Atraumatic Neck: Supple Respiratory: Other (on one liter per nasal canula) Cardiovascular: Normal pulses Integumentary: Other (appears dry) Neurological: Normal speech, Normal strength at 5/5 x4 extr, Normal tone, Normal affect - Studies Laboratory Data (last 24 hrs) 04/09/20 13:50: PT 12.0, INR 1.02 04/09/20 13:50: WBC 6.1, Hgb 11.5 L, Hct 33.4 L, Plt Count 170 04/09/20 13:50: Sodium 139, Potassium 4.7, BUN 47 H, Creatinine 1.68 H, Glucose 84, Magnesium 2.1, Total Bilirubin 0.4, AST 90 H, ALT 46, Alkaline Phosphatase 75 Medications List Reviewed: Yes Assessment & Plan Discharge Plan: Home Plan to discharge in: 24 Hours Physician Review Additional Text: Impression: Dyspnea secondary to bilateral COVID 19 pneumonia with hypoxia Acute renal insufficiency secondary to dehydration Depression with anxiety Hypothyroidism Chronic pain GERD Plan: Dyspnea secondary to bilateral COVID 19 pneumonia with hypoxia: Patient has improved. Blood pressure was 96 systolic early this morning. BP improved. Orthostatics negative. BMP also improved. Encourage oral intake. Will continue with IV fluids and recheck another BMP later. CRP elevated but patient clinically better. Will discuss with pulmonology about possible discharge as early as today. If home oxygen can be arranged for later today then anticipate discharge if BMP improved and oral intake better. Will reassess later today to determine this. If the patient still appears dehydrated and oxygen cannot be arranged then will plan for discharge tomorrow. I will turn the service over to the hospitalist team tomorrow. I will go plan of care with him. Acute renal insufficiency secondary to dehydration: Patient still appears dehydrated. Will continue with IV fluids. Recheck BMP later today. Depression with anxiety: Continue mirtazapine, buspirone, and Effexor Hypothyroidism: Continue home medication Chronic pain: Will provide medication if needed GERD: Will continue with medication Time Spent Managing Pts Care (In Minutes): 55
--- NOTE | 2020-04-10 14:05 | P.DS ---
Admission Date: 04/09/20 Discharge Date: 04/10/20 Primary Care Provider: Dr. Parker Disposition: ROUTINE DISCHARGE Discharge Condition: GOOD Reason for Admission: Dyspnea, COVID Positive Consultations: none Procedures: CT Scan: FINDINGS: The evaluation of mediastinum, nelson and vessels is limited secondary to lack of IV contrast administration. Moderate bilateral patchy ground-glass opacities within the lungs. Calcified granuloma right lung Calcified mediastinal and calcified hilar lymph nodes. Small hiatal hernia A pleural effusion is not present. No pericardial effusion. Coronary arterial calcifications IMPRESSION: Moderate bilateral patchy ground-glass opacities within the lungs may indicate Covid pneumonia Medical Problem List: Dyspnea secondary to bilateral COVID 19 pneumonia with hypoxia Acute renal insufficiency secondary to dehydration Depression with anxiety Hypothyroidism Chronic pain GERD Brief History of Present Illness: 79-year-old female with history of depression with anxiety, hypothyroidism, and GERD. Patient reports being diagnosis with COVID 19 since March 31. She had gone to urgent care recently to get evaluated. She was sent home. During this time. Her also developed COVID 19. Although her was hospitalized for this. Since he has been gone she has had decreased appetite. She has not been taking good oral intake. The shortness of breath has persisted and gotten worse. She reports a mild cough. No significant fever, chills. She came to the ER for further evaluation. In the ER patient evaluated. Patient slightly tachypneic upon arrival. Chest x-ray shows evidence of bilateral infiltrates. White count 6.1, hemoglobin 11.5. Sodium 139, potassium 4.7. BUN of 47, creatinine 1.68 with a GFR 29. Glucose 84. Prior GFR around 45. Patient given IV steroids. Patient admitted for further evaluation and treatment. Hospital Course: Patient presented with dyspnea secondary secondary to bilateral COVID 19 pneumonia with hypoxia. Patient was diagnosed on March 31. Symptoms worsened requiring hospitalization. Patient received IV fluids due to acute renal insufficiency-dehydration from poor intake. Patient also received IV steroids and supplementation. During the course of her stay her condition improved. At discharge she is not requiring any oxygen. Orthostatics negative. Patient encouraged to increase her fluid intake. At discharge patient will continue with prednisone 20 mg 1 pill twice daily for 7 days then 20 mg daily for 7 days. Patient will also continue with aspirin 81 mg daily. At discharge other medications include zinc 220 mg 1 pill twice daily, vitamin-D 2000 units daily, and vitamin-C 500 mg 3 times a day. Recommend follow up with pulmonology in 1 week to monitor her care. Will provide contact information. Patient will continue with COVID 19 isolation guidelines along with education on facemask use, social distancing, and hand washing. Recommend follow up with her PCP to further monitor and address. As mentioned above, patient with with acute renal injury due to dehydration. This improved with IV fluid hydration. As mentioned above patient orthostatics were negative. Blood pressure improved. Recommend to recheck lab-BMP to monitor renal function. Patient with hypertension. Patient takes Arb inhibitor olmesartan 20 mg daily. Recommend to monitor blood pressure daily. Hold blood pressure medication if blood pressure systolic less than 110. Further adjustment can be done by her PCP. Patient with depression with anxiety, hypothyroidism, chronic pain, and GERD. At discharge she will continue with her other home medications. This includes mirtazapine, buspirone, Effexor, Synthroid, Prilosec, Zyrtec, and Celebrex. Vital Signs/Physical Exam: Temp Pulse Resp BP Pulse Ox 97.2 F 85 19 130/61 94 04/10/20 10:03 04/10/20 13:00 04/10/20 13:00 04/10/20 13:00 04/10/20 13:00 General: Alert, In no apparent distress, Oriented x3, Cooperative HEENT: Atraumatic Neck: Supple Respiratory: Other (Patient off room-air. Patient breathing appropriately and moving around without difficulty.) Cardiovascular: Normal pulses, Regular rate/rhythm Neurological: Normal speech, Normal strength at 5/5 x4 extr, Normal tone, Normal affect Laboratory Data at Discharge: WBC 3.5 K/uL (4.3-10.9) L D 04/10/20 04:43 Hgb 11.1 g/dL (12.0-15.0) L 04/10/20 04:43 Hct 32.3 % (36.0-45.0) L 04/10/20 04:43 Plt Count 192 K/uL (152-406) 04/10/20 04:43 PT 12.0 SECONDS (9.5-12.5) 04/09/20 13:50 INR 1.02 04/09/20 13:50 Sodium Cancelled 04/10/20 12:00 Potassium Cancelled 04/10/20 12:00 BUN Cancelled 04/10/20 12:00 Creatinine Cancelled 04/10/20 12:00 Glucose Cancelled 04/10/20 12:00 Magnesium 2.2 mg/dL (1.8-2.4) 04/10/20 04:43 Total Bilirubin 0.4 mg/dL (0.2-1.0) 04/09/20 13:50 AST 90 U/L (15-37) H 04/09/20 13:50 ALT 46 U/L (12-78) 04/09/20 13:50 Alkaline Phosphatase 75 U/L (45-117) 04/09/20 13:50 Home Medications: Buspirone HCl [Buspar] 15 mg PO BID 04/09/20 Cetirizine HCl [Zyrtec*] 5 mg PO DAILY 04/09/20 Hydrocodone Bit/Acetaminophen [Hydrocodon-Acetaminophen 5-325] 1 each PO Q6H 04/09/20 Levothyroxine [Synthroid*] 100 mcg PO [id number] 04/09/20 Mirtazapine [Remeron] 30 mg PO BEDTIME 04/09/20 Olmesartan Medoxomil 20 mg PO DAILY 04/09/20 Omeprazole [Prilosec] 40 mg PO DAILY 04/09/20 Venlafaxine HCl [Effexor*] 75 mg PO DAILY 04/09/20 carisoprodoL [Carisoprodol] 350 mg PO QID 04/09/20 Ascorbic Acid [Vitamin C*] 500 mg PO TID #90 tablet 04/10/20 Aspirin Chewable [Aspirin Chewable*] 81 mg PO DAILY #30 tab.chew 04/10/20 Cholecalciferol (Vitamin D3) [Vitamin D 1000 Iu Tab*] 2,000 unit PO DAILY #60 tab 04/10/20 Zinc Sulfate [Zinc Sulfate*] 220 mg PO BID #60 cap 04/10/20 predniSONE [Prednisone*] 20 mg PO SEECOM #21 tab 04/10/20 New Medications: Aspirin Chewable [Aspirin Chewable*] 81 mg PO DAILY #30 tab.chew predniSONE [Prednisone*] 20 mg PO SEECOM #21 tab Ascorbic Acid [Vitamin C*] 500 mg PO TID #90 tablet Cholecalciferol (Vitamin D3) [Vitamin D 1000 Iu Tab*] 2,000 unit PO DAILY #60 tab Zinc Sulfate [Zinc Sulfate*] 220 mg PO BID #60 cap Patient Discharge Instructions: Follow up with PCP in 1 week to follow up this hospitalization. Patient presented with dyspnea secondary secondary to bilateral COVID 19 pneumonia with hypoxia. Patient was diagnosed on March 31. Symptoms worsened requiring hospitalization. Patient received IV fluids due to acute renal insufficiency-dehydration from poor intake. Patient also received IV steroids and supplementation. During the course of her stay her condition improved. At discharge she is not requiring any oxygen. Orthostatics negative. Patient encouraged to increase her fluid intake. At discharge patient will continue with prednisone 20 mg 1 pill twice daily for 7 days then 20 mg daily for 7 days. Patient will also continue with aspirin 81 mg daily. At discharge other medications include zinc 220 mg 1 pill twice daily, vitamin-D 2000 units daily, and vitamin-C 500 mg 3 times a day. Recommend follow up with pulmonology in 1 week to monitor her care. Will provide contact information. Patient will continue with COVID 19 isolation guidelines along with education on facemask use, social distancing, and hand washing. Recommend follow up with her PCP to further monitor and address. As mentioned above, patient with with acute renal injury due to dehydration. This improved with IV fluid hydration. As mentioned above patient orthostatics were negative. Blood pressure improved. Recommend to recheck lab-BMP to monitor renal function. Patient with hypertension. Patient takes Arb inhibitor olmesartan 20 mg daily. Recommend to monitor blood pressure daily. Hold blood pressure medication if blood pressure systolic less than 110. Further adjustment can be done by her PCP. Patient with depression with anxiety, hypothyroidism, chronic pain, and GERD. At discharge she will continue with her other home medications. This includes mirtazapine, buspirone, Effexor, Synthroid, Prilosec, Zyrtec, and Celebrex. Diet: AHA Activity: Ad faith Followup: Unknown,U [Primary Care Provider] - Time spent managing pt's care (in minutes): 55
[2020-04-10 15:03] LABS: Potassium 4.8 mmol/L (3.5-5.1)
[2020-04-10 17:24] VITALS: BP 124/72
== END 2020-04-10 17:30 | disposition home or self-care (01) ==
LOC: ER 12:38 → ERHOLD 14:35 → 3RD-ICU 22:30
PROVIDERS: ADMIT Family Medicine; ATTEND Family Medicine
DX: U07.1 COVID-19 (principal); J12.89 Other viral pneumonia; R09.02 Hypoxemia; N17.9 Acute kidney failure, unspecified; E86.0 Dehydration; F41.8 Other specified anxiety disorders; E03.9 Hypothyroidism, unspecified; G89.29 Other chronic pain; K21.9 Gastro-esophageal reflux disease without esophagitis; I10 Essential (primary) hypertension; G25.81 Restless legs syndrome
CPT/HCPCS: 36415; 71045; 71250; 80048; 80076; 81003; 82728; 82805; 83735; 83880; 84484; 85025; 85610; 86140; 87040; 96365; 96366; 96372; 96375; 99285; J0456; J0696; J1100; J1644; J2920; J2930; J7030; J7050; U0003

== ENCOUNTER 2020-08-02 11:17 | Emergency (ER) | payer OTHER ==
--- OUTSIDE RECORDS SUMMARY | 2020-08-02 11:23 | XMS REPORT | Continuity of Care Document ---
:1940 Author Organization [facility] t Address [address] [place] [address] Care Team Providers Name Role Phone Ronal Fraire Primary Care Physician Unavailable Georgiana Jarrett MD Attending Clinician Unavailable 1.5, Stephan Mr Attending Clinician Unavailable Alonzo Murry MD, Luke Attending Clinician Jasiel Fraire MD Attending Clinician Georgiana Jarrett MD Attending Clinician Alyssia MARINO Attending Clinician Paramjit Cade MD Attending Clinician Unavailable Audie MARINO LSmooth Attending Clinician PARAMJIT CADE Attending Clinician Unavailable Pineda SHELTON, S Attending Clinician Unavailable Bear JENNINGS Attending Clinician Paz RN Attending Clinician Unavailable Georgiana JARRETT Attending Clinician Unavailable PARAMJIT CADE Admitting Clinician Unavailable Payers Payer Name Policy Type Policy Effective Date Expiration Date Sour ce Number MEDICAREMEDICARE A [id number] 2004 ROBERT Pan [id number] 2004-P 00:00:00 - [facility] AETNA - MGD CAREAETNA [id number] 2013 ROBERT Bobo INDEMNITY NON 00:00:00 - Medical [id number] 2013 Ce nter -PresentComm Problems Condition Condition Condition Status Onset Resolution Last Treating Co mments Source Name Details Category Date Date Treatment Clinician Date SOB SOB Disease Active [facility] (shortness (shortness - Carolyn kes - of breath) of breath) 00:00: Me dical 00 [place] Allergies, Adverse Reactions, Alerts Allergy Allergy Status Severity Reaction(s) Onset Inactive Treating Comm ents Source Name Type Date Date Clinician Adhesive Propensi Active [facility] Bandage [facility] to 01-19 [facility] - adverse 00:00: Medical reaction 00 Center s Sulfa Propensi Active [facility] (Sulfona ty to 01-19 [facility] - mide adverse 00:00: Medical Antibiot reaction 00 [place] ics) s Family History Family Member Diagnosis Comments Start Date Stop Date Source Natural father Stroke [facility] Natural mother Heart disease [facility] Natural sister Cancer [facility] Social History Social Habit Start Date Stop Date Quantity Comments Source Sex Assigned At [facility] Tobacco use and 2019-10-27 2019-10-27 Never used [facility] - exposure 00:00:00 00:00:00 [facility] Alcohol intake 2019-10-27 2019-10-27 Current drinker [facility] t [facility] - 00:00:00 00:00:00 of [facility] (finding) Alcohol Comment 2019-10-22 2019-10-22 monthly twice - [facility] - 00:00:00 00:00:00 [facility] Smoking Status Start Date Stop Date Source Never smoker [facility] Medications Ordered Filled Start Stop Current Ordering Indication Dosage Frequency Signature Comments Components Source Medication Medication Date Date Medication? Clinician (SIG) Name Name biotin 5 mg Yes 5mg QD Take [address] Cap 6-29 by mouth [facility] - 17:15: daily . [address] cetirizine Yes 10mg QD Take [address] (ZYRTEC) 10 6-29 by mouth Luke s - MG tablet 17:15: daily. Medica [address] ibuprofen/d Yes Take by [facility] iphenhydram 6-29 mouth as Luke s - [...] 00:00: daily. Medic al hr capsule 00 Center celecoxib Yes 200mg Take [address] [facility] [facility] [...] MG 00:00: nightly . Medical tablet 00 Center busPIRone Yes 15mg Q.5D Take [address] (BUSPAR) 15 7-02 by mouth 2 Carolyn kes - MG tablet 00:00: (two) Medical 00 times Center daily. olmesartan 2020- No 20mg QD Take [address] [facility] (BENICAR) 7-02 06-25 by mouth [facility] - 20 MG 00:00: 00:00 daily. Medical tablet 00 :00 [place] carisoprodo Yes TK [address] l (SOMA) 6-21 QID PRF [facility] - 350 MG 00:00: SEVERE Medical tablet 00 MUSCLE Center SPASMS triamterene 2020- No TAKE [address] [facility] -hydroCHLOR 2-07 06-25 TABLET BY Carolyn kes - Othiazide 00:00: 00:00 MOUTH Medica l (MAXZIDE-25 00 :00 TWICE A Cente r ) 37.5-25 DAY mg per tablet zolpidem 2017-04 Yes TAKE [address] [facility] (AMBIEN) 10 0-09 TABLET BY Mylene es - mg tablet 00:00: MOUTH AT [facility] 00 BEDTIME Center WHEN NECESSARY INSOMNIA acetaminoph Yes [address] [facility] en-codeine 7-10 4-6 hrs [facility] - (TYLENOL 00:00: prn pain. Medi ana #4) 300-60 00 Center mg per tablet levothyroxi Yes TAKE [address] [facility] [address] ne 3-01 TABLET BY [facility] - (SYNTHROID) 00:00: MOUTH Medic al 100 MCG 00 EVERY DAY Center tablet olmesartan Yes TAKE 1 [facility] t (BENICAR) 3-01 TABLET BY [facility] - 20 MG 00:00: MOUTH Medical tablet 00 EVERY DAY Center omeprazole Yes 1 po qd [facility] St (PRILOSEC 4-16 [facility] - OTC) 20 MG 00:00: Medical tablet 00 Center Vital Signs Vital Name Observation Time Observation Value Comments Source Systolic blood 2019-10-26 15:45:00 148 mm[Hg] [facility] Diastolic blood 2019-10-26 15:45:00 72 mm[Hg] [facility] S t [facility] Heart rate 2019-10-26 15:45:00 99 /min [facility] Respiratory rate 2019-10-26 15:45:00 16 /min [facility] Oxygen saturation in 2019-10-26 09:00:00 97 /min [facility] - Arterial blood by Medical Ce nter Pulse oximetry Body temperature 2019-10-26 05:43:00 36.83 Noemí [facility] Body height 2019-10-26 05:43:00 162.6 cm [facility] Body weight 2019-10-26 05:43:00 83.008 kg [facility] BMI 2019-10-26 05:43:00 31.41 kg/m2 [facility] Procedures Procedure Date / Time Performed Performing Clinician Sourc e CARDIAC CATH REPORT - 2020-01-27 10:20:23 Provider, Default [facility] SCAN Scanning [facility] VASCULAR DIAGRAM -SCAN 2020-01-27 10:20:21 Provider, Default [facility] TRANSFUSION SERVICE 2019-10-27 18:13:41 Provider, Default [facility] - REPORT - SCAN Scanning [facility] VASCULAR DIAGRAM -SCAN 2019-10-27 09:20:08 Provider, Default [facility] CARDIAC CATH REPORT - 2019-10-27 09:20:05 Provider, Default [facility] - SCAN [facility] CARDIAC CATH REPORT - 2019-10-27 09:20:04 [facility] CATH & CORONARY ANGIOS 2019-10-26 07:10:00 [facility] PCI 2019-10-26 07:10:00 Alyssia [facility] ECG 12-LEAD 2019-10-26 06:26:02 Bear [facility] ABORH, MANUAL 2019-10-26 06:19:00 Delores Cavanaugh [facility] TYPE AND SCREEN, 2019-10-26 06:07:00 [facility] AUTOMATED [facility] CBC W/PLT COUNT & AUTO 2019-10-26 06:07:00 [facility] t [facility] DIFFERENTIAL [facility] BASIC METABOLIC PANEL (7) 2019-10-26 06:07:00 Bear [facility] PROTHROMBIN TIME/INR 2019-10-26 06:07:00 Bear [facility] CBC W/PLT COUNT & AUTO 2019-10-22 10:10:[address] [facility] [address] [facility] - DIFFERENTIAL [facility] BASIC METABOLIC PANEL (7) 2019-10-22 10:10:00 Roger Cade [facility] SARS-COV2/RT-PCR ([facility] & 2019-10-22 09:58:00 Bear [facility] - REF LABS) [facility] ECG 12-LEAD 2019-10-22 09:43:[address] [facility] [address] ke s [facility] CBC W/PLT COUNT & AUTO 2019-09-15 10:55:[address] [facility] - DIFFERENTIAL [facility] COMPREHENSIVE METABOLIC 2019-09-15 10:55:[address] [facility] - PANEL [facility] B-TYPE NATRIURETIC FACTOR 2019-09-15 10:55:00 Roger Cade [facility] - (BNP) [facility] 2D ECHO W/ DOPPLER 2019-09-15 10:02:[address] [facility] - (CW/PW/COLOR) [facility] Plan of Care Planned Activity Planned Date Details Comments Source Future Scheduled 2022-08-01 DTAP/TDAP/TD VACCINES [facility] - Test 00:00:00 (2 - Td) [code = Medical Shad ter DTAP/TDAP/TD VACCINES (2 - Td)] Future Scheduled 2020-12-[address] [facility] - Test 00:00:00 (Season Ended) [code = Medic al Center INFLUENZA VACCINE (Season Ended)] Future Scheduled 2020-04-[address] [facility] - Test 00:00:00 (12+) [code = Medical Center DEPRESSION SCREENING (12+)] Future Scheduled 2005-10-[address] [facility] [facility] - Test 00:00:00 WELLNESS (YEAR 2 or Medical Center FIRST YEAR if no IPPE) [code = MEDICARE ANNUAL WELLNESS (YEAR 2 or FIRST YEAR if no IPPE)] Future Scheduled 2004-11-21 PNEUMOCOCCAL 65+ YRS [facility] - Test 00:00:00 (1 of 1 - Medical Center [id number] PCV13) [code = PNEUMOCOCCAL 65+ YRS (1 of 1 - [id number] PCV13)] Future Scheduled 1989-11-21 SHINGLES VACCINES ([address] [facility] - Test 00:00:00 of 2) [code = SHINGLES Medic al Center VACCINES (1 of 2)] Encounters Start End Encounter Admission Attending Care Care Encounter Source Date/Time Date/Time Type Type Clinicians Facility Department ID 2020-03-17 2020-03-17 Office DMITRY Rosado [id number] 10:15:37 10:45:37 Visit Casey Butler AMBULATOR 350.1.13.21 Y 0.2.7.2.686 [id number] 2020-03-03 2020-03-03 Office DMITRY Fraire 1.2.840.114 [id number] 07:41:22 16:37:01 Visit John Weathers AMBULATOR 350.1.13.21 Y 0.2.7.2.686 [id number] 2020-02-18 2020-02-18 Office Jeremy Jarrett 1.2.840.114 [id number] 10:14:58 14:46:59 Visit P. AMBULATOR 350.1.13.21 Y 0.2.7.2.686 [id number] 2020-02-02 2020-02-02 Office DMITRY Cade 1.2.840.114 [id number] 13:03:55 13:23:55 Visit Roger AMBULATOR 350.1.13.21 Y 0.2.7.2.686 [id number] 2019-07-07 2019-07-07 Office DMITRY Cade 1.2.840.114 [id number] 09:45:03 10:05:03 Visit Roger AMBULATOR 350.1.13.21 Y 0.2.7.2.686 [id number] 2019-06-02 2019-06-02 Office DMITRY Cade 1.2.840.114 [id number] 13:19:34 13:39:34 Visit Roger AMBULATOR 350.1.13.21 Y 0.2.7.2.686 [id number] 2019-06-01 2019-06-01 Office DMITRY Rosado 1.2.840.114 [id number] 14:43:10 14:58:10 Visit Casey Butler AMBULATOR 350.1.13.21 Y 0.2.7.2.686 [id number] 2019-02-23 2019-02-23 Office Jeremy Jarrett 1.2.840.114 [id number] 13:38:56 16:16:51 Visit P. AMBULATOR 350.1.13.21 Y 0.2.7.2.686 [id number] 2019-01-30 2019-01-30 Office DMITRY Cade 1.2.840.114 [id number] 07:58:42 08:18:42 Visit Roger AMBULATOR 350.1.13.21 Y 0.2.7.2.686 [id number] 2018-12-12 2018-12-12 Office DMITRY Cade 1.2.840.114 [id number] 10:45:15 11:25:15 Visit Roger AMBULATOR 350.1.13.21 Y 0.2.7.2.686 [id number] 2018-12-02 2018-12-02 Office DMITRY Fraire 1.2.840.114 [id number] 13:30:00 14:00:00 Visit John Weathers AMBULATOR 350.1.13.21 Y 0.2.7.2.686 [id number] 2018-12-02 2018-12-02 Office DMITRY Fraire 1.2.840.114 [id number] 09:34:04 13:55:47 Visit John Weathers AMBULATOR 350.1.13.21 Y 0.2.7.2.686 [id number] Results Test Description Test Time Test Comments Results Result Sour e Comments ECG 12 lead 2019-10-26 Interface, External [facility] 07:46:12 Ris In - 10/26/2019 - Med ical 7:46 AM Center CDTVentricular Rate 79 BPMAtrial Rate 79 BPMP-R Interval 162 msQRS Duration 74 msQ-T Interval 374 msQTC Calculation(Bazett) 428 msP [place] 59 degreesR [place] -7 degreesT [place] 35 degreesNormal sinus rhythmLow voltage QRSNormal ECGWhen compared with ECG of 22-OCT-2019 09:43,No significant change was foundConfirmed by Heather DOMINGUEZ, HARDEEP ([id number]) on 10/26/2019 7:46:09 AM ABORH, manual 2019-10-26 07:14:00 Test Item Value Reference Range Interpretation Comme nts ABO Grouping (test code = 2588) O Rh Factor (test code = 2589) POS [facility], [id number] 06:56:00 Test Item Value Reference Range Interpretation Comments ABO/RH AUTOMATED (BEAKER) (test O POSITIVE code = 2260) Ab Scrn (test code = 890-4) NEGATIVE [facility] metabolic [id number] 06:33:00 Test Item Value Reference Range Interpretation Comments Sodium (test code = 142 meq/L 939-613 2343-2) Potassium (test code = 4.1 meq/L 3.5-5.1 2823-3) Chloride (test code = 107 meq/L 98-107 2075-0) CO2 (test code = 26 meq/L 22-29 2028-9) BUN (test code = 33 mg/dL 7-21 H 3094-0) Creatinine (test code 1.06 mg/dL 0.57-1.25 = 2160-0) Glucose (test code = 91 mg/dL 70-105 2345-7) Calcium (test code = 9.4 mg/dL 8.4-10.2 64030-5) EGFR (test code = 50 mL/min/1.73 [place] [address]-4) NOT ACCURATE CREATININE CLEARANCE IN PREDICTING GLOMERULAR FILTRATION RATE . ESTIMATED GFR I S NOT APPLICABLE FOR DIALYSIS PATIENTS. MONIE (test code = MONIE) Warp Dyeing Vat Tender ID Cathy Alonso Lab Interpretation Abnormal (test code = 10402-1) [facility] METABOLIC [id number] 06:33:00 Test Item Value Reference Range Interpretation [...] S NOT APPLICABLE FOR DIALYSIS PATIEN TS. Warp Dyeing Vat Tender ID - KOBI LProthrombin time/[id number] 06:31:00 Test Item Value Reference Interpretation Comments Range Protime (test code = 12.9 See_Comment [Autom ated 5482-2) message] The system which generated this result transmitted reference range : 11.9 - 14.2 seconds. The reference range was not used to interpret this result as normal/abnormal . INR (test code = 1.0 See_Comment [Automated 0740-6) message] The system which generated this result transmitted reference range : <=5.9. The reference range was not used to interpret this result as normal/abnormal . MONIE (test code = Effective 09/24/2018: MONIE) PT Reference Range ChangeNew: 11.9-14.2 Previous: 11.7-14.7 RECOMMENDED COUMADIN/WARFARIN INR THERAPY RANGESSTANDARD DOSE: 2.0-3.0 Includes: PROPHYLAXIS for venous thrombosis, systemic embolization; TREATMENT for venous thrombosis and/or pulmonary embolus.HIGH RISK: Target INR is 2.5-3.5 for patients wiht mechanical heart valves. Within 24 hours, if on Coumadin Lab Interpretation Normal (test code = 47550-1) [facility] CenterPROTHROMBIN TIME/[id number] 06:31:00 Test Item Value Reference Range Interpretation [...] on CoumadinCBC with platelet count + automated [id number] 06:23:00 Test Item Value Reference Range Interpretation Comments WBC (test code = 6690-2) 4.7 See_Comment [A utomated message] The system Mojostreet generated this result transmitted ref erence range: 3.5 - 10 .5 K/L. The refe rence range was not u sed to interpret this result as normal/abnor mal. RBC (test code = 789-8) 3.93 See_Comment [Au tomated message] The system Mojostreet generated this result transmitted ref erence range: 3.93 - 5 .22 M/L. The refe rence range was not u sed to interpret this result as normal/abnor mal. MCHC (test code = 786-4) 32.1 See_Comment L [A utomated message] The system Mojostreet generated this result transmitted ref erence range: 32.2 - 3 5.5 GM/DL. The refe rence range was not u sed to interpret this result as normal/abnor mal. Hematocrit (test code = 37.1 % 34.1-44.9 4544-3) MCV (test code = 787-2) 94.4 fL 79.4-94.8 MCH (test code = 785-6) 30.3 pg 25.6-32.2 RDW (test code = 788-0) 12.4 % 11.7-14.4 Platelets (test code = 124 See_Comment L [Aut omated message] 777-3) The system Mojostreet generated this result transmitted ref erence range: 150 - 45 0 K/CU MM. The referen ce range was not u sed to interpret this result as normal/abnor mal. MPV (test code = 10.5 fL 9.4-12.3 17752-7) nRBC (test code = 413) 0 See_Comment [Aut omated message] The system Mojostreet generated this result transmitted ref erence range: 0 - 0 /1 00 WBC. The refere nce range was not u sed to interpret this result as normal/abnor mal. % Neutros (test code = 34 % 429) % Lymphs (test code = 52 % 430) % Monos (test code = 10 % 431) % Eos (test code = 432) 4 % % Baso (test code = 437) 1 % # Neutros (test code = 1.59 See_Comment [Aut omated message] 670) The system Mojostreet generated this result transmitted ref erence range: 1.56 - 6 .13 K/L. The refe rence range was not u sed to interpret this result as normal/abnor mal. # Lymphs (test code = 2.44 See_Comment [Auto mated message] 414) The system Mojostreet generated this result transmitted ref erence range: 1.18 - 3 .74 K/L. The refe rence range was not u sed to interpret this result as normal/abnor mal. # Monos (test code = 0.46 See_Comment H [Autom ated message] 415) The system Mojostreet generated this result transmitted ref erence range: 0.24 - 0 .36 K/L. The refe rence range was not u sed to interpret this result as normal/abnor mal. # Eos (test code = 416) 0.18 See_Comment [Au tomated message] The system Mojostreet generated this result transmitted ref erence range: 0.04 - 0 .36 K/L. The refe rence range was not u sed to interpret this result as normal/abnor mal. # Baso (test code = 417) 0.04 See_Comment [A utomated message] The system Mojostreet generated this result transmitted ref erence range: 0.01 - 0 .08 K/L. The refe rence range was not u sed to interpret this result as normal/abnor mal. Immature 0 % 0-1 Granulocytes-Relative (test code = 2801) Lab Interpretation (test Abnormal code = 57894-1) [facility] W/PLT COUNT & AUTO [id number] 06:23:00 Test Item Value Reference Range Interpretation [...] PERCENT (BEAKER) (test code = 2801) SARS-CoV2/RT-PCR ([facility] & Ref Labs)2019-10-25 10:59:00 Test Item Value Reference Range Interpretation Comments SARS-COV2/RT-PCR (test code = Negative Not Detected, Negative 01518-6) SARS-COV-2 PERFORMING LAB CPL (test code = 00212-4) [facility] REF LABS)2019-10-25 10:59:00 Test Item Value Reference Range Interpretation Comments SARS-COV2/RT-PCR (test code = Negative Not Detected, Negative 1688174) SARS-COV-2 PERFORMING LAB CPL (test code = 6276704) BASIC METABOLIC [id number] 10:52:00 Test Item Value Reference Range Interpretation [...] S NOT APPLICABLE FOR DIALYSIS PATIEN TS. Warp Dyeing Vat Tender ID - APR CCBC W/PLT COUNT & AUTO [id number] 10:23:00 Test Item Value Reference Range Interpretation [...] ofStudy 09/15/2019 ROMAN Gender Female Visit Number [id number] Race Room Number OP Number Date of 1940 Referring Alyssia Dugan Physician Age 78 year(s) [employer] Yenni Gary RDCS Interpreting Morro Manley MD [...] TR Velocity: 2.21 m/s TR Gradient: 19.45 mmHgLanterman Developmental CenterB-type Natriuretic Factor (BNP)2019-09-15 11:25:00 Test Item Value Reference Range Interpretation Comments BNP (test code = 18359-5) <10 0-100 MONIE (test code = MONIE) Warp Dyeing Vat Tender ID Cathy FLEMING F Lab Interpretation (test Normal code = 56346-1) [facility] NATRIURETIC FACTOR (BNP)2019-09-15 11:25:00 Test Item Value Reference Range Interpretation Comments B-TYPE NATRIURETIC PEPTIDE (BEAKER) < pg/mL 0-100 (test code = 700) Warp Dyeing Vat Tender ID Cathy FLEMING FComprehensive metabolic [id number] 11:21:00 Test Item Value Reference Range Interpretation Comments Protein, Total (test 7.6 See_Comment [Autom ated code = 2885-2) message] The system which generated this result transmit cheryle reference range : 6.0 - 8.3 gm/dL . The reference range was not u sed to interpret th is result as normal/abnormal . Albumin (test code = 4.4 g/dL 3.5-5 65211-6) Alkaline Phosphatase 72 U/L 40-150 (test code = 6768-6) Total Bilirubin (test 0.5 mg/dL 0.2-1.2 code = 1974-2) Sodium (test code = 136 meq/L 969-044 2370-2) Potassium (test code 4.4 meq/L 3.5-5.1 = 2823-3) Chloride (test code = 99 meq/L 98-107 5-0) CO2 (test code = 31 meq/L 22-29 H 2027-9) BUN (test code = 32 mg/dL 7-21 H 3094-0) Creatinine (test code 1.29 mg/dL 0.57-1.25 H = 2160-0) Glucose (test code = 97 mg/dL 70-105 2345-7) Calcium (test code = 9.8 mg/dL 8.4-10.2 89072-8) AST (test code = 29 U/L 5-34 1920-8) ALT (test code = 19 U/L 6-55 1742-6) EGFR (test code = 40 mL/min/1.73 [place] [address]-0) NOT ACCURATE CREATININE CLEARANCE IN PREDICTING GLOMERULAR FILTRATION RATE . ESTIMATED GFR I S NOT APPLICABLE FOR DIALYSIS PATIEN MONIE (test code = MONIE) Warp Dyeing Vat Tender ID - LONNIE Lobo Lab Interpretation Abnormal (test code = 09798-4) [facility] CenterCOMPREHENSIVE METABOLIC [id number] 11:21:00 Test Item Value Reference Range Interpretation [...] S NOT APPLICABLE FOR DIALYSIS PATIEN TS. Warp Dyeing Vat Tender ID - NASH FCBC W/PLT COUNT & AUTO [id number] 11:14:00 Test Item Value Reference Range Interpretation [...] CTA CORONARY WITH CALCIUM EVAL AND FFR [id number] 12:22:00Addendum BeginsREPORT STATUS:A Addendum: I agree with the previously described non vascular findings. End of addendum. Signed: Kan Fontana MDReport Verified Date/Time: 06/23/2019 12:22:20 Reading Location: [address] Radiology Reading RoomAddendum EndsAddendum BeginsREPORT STATUS:A ADDENDUM: Data was sent for CT analysis, ct-ffr, to be performed by an independent third republican vendor. According to computer analysis, no obstructive [...] performed. Coronary calcification was analyzed using the [employer] system software.These are the results of the [...] for CT analysis, by an independent third republican vendor. Should the data be accepted for postprocessing, the result would be sent to PACS/Oginwhen available. 3. No acute pulmonary pathology. Evidence of prior granulomatous disease. 4. Normal thoracic aorta. No ectasia or aneurysmal dilation is identified. 5. Other findings as described above. 6. The non-vascular findings will be reviewed by the Digital Computer Systems Analyst Radiologist and addendum will be added as needed. Signed: Saúl Layne MDReport Verified Date/Time: 06/22/2019 12:11:30 [id number] 08:52:00 Test Item Value Reference Range Interpretation Comments POC-CREATININE 1.2 mg/dL 0.6-1.3 : TESTED AT [facility] ([facility] (test [address] [facility] code = 1859) [place] [id number]: Warp Dyeing Vat Tender/Techni antonio ID = [id number] for Jonny Estrada POC-EGFR ([employer]) 43 mL/min/1.73M2 (test code = 1860) PET, CARDIAC PERFUSION MULTIPLE STUDIES, REST AND [id number] 15:35:00 Reason for Exam:->htnFINAL REPORT PROCEDURE: MYOCARDIAL PERFUSION PET IMAGING (Rest/Stress)CPT CODE: 65097 INDICATION: Evaluate for presence of CAD, dyspnea, [...] MDReport Verified Date/Time: 01/19/2019 15:35:55 Reading Location: [address] Reading Room
== END 2020-08-02 11:42 | disposition left against medical advice (07) ==
LOC: ER 11:17
DX: Z02.9 Encounter for administrative examinations, unspecified (principal)